=== PATIENT | male | born 1960 | race African-American/Black ===

== ENCOUNTER 2017-07-10 11:54 | Day surgery (SDC) | payer BC ==
[2017-07-09 13:29] VITALS: BMI 36.2
[2017-07-10] MEDS ORDERED: Propofol 200 MG/20 ML VIAL ONE (14:05)
--- NOTE | 2017-07-10 18:24 | OP ---
DATE OF PROCEDURE: 07/10/2017 PROCEDURES PERFORMED: Esophagogastroduodenoscopy with biopsy and colonoscopy. PREOPERATIVE DIAGNOSES: Dyspepsia and colon cancer screening. DESCRIPTION OF PROCEDURE: Informed consent was obtained from the patient. He was sedated with tota l intravenous anesthesia. The bite block was placed and the endoscope was advanced easily to the se cond portion of the duodenum and retroflexion was performed in the stomach. The esophagus was mikhail l. The GE junction was normal. The stomach was normal including retroflexed views. The pylorus an d first and second portions of the duodenum were normal. Random biopsies were taken from the duoden um to rule out celiac disease. The patient was turned around. Rectal exam was performed and was no rmal. The preparation quality was excellent. The colonoscope was advanced to the cecum where the i leocecal valve and appendiceal orifice were clearly identified. The colonic mucosa was normal throu ghout. Retroflexed views in the rectum were normal. IMPRESSION: 1. Normal esophagogastroduodenoscopy. Duodenal biopsies taken. 2. Normal colonoscopy. RECOMMENDATIONS: 1. Await histopathology. 2. Repeat colonoscopy in 10 years. 3. Follow up in GI clinic.
--- NOTE | 2017-07-14 13:26 | EKG ---
Test Reason : PREOP Blood Pressure : / mmHG Vent. Rate : 044 BPM Atrial Rate : 044 BPM P-R Int : 170 ms QRS Dur : 114 ms QT Int : 454 ms P-R-T Axes : 053 016 -04 degrees QTc Int : 388 ms Marked sinus bradycardia with sinus arrhythmia Non-specific intra-ventricular conduction block Possible Inferior infarct , age undetermined Abnormal ECG Confirmed by EZIO NOVA ([id number]) on 07/14/2017 1:26:00 PM Referred By: ANTHONY Confirmed By:EZIO NOVA
== END 2017-07-10 17:00 | disposition home or self-care (01) ==
LOC: SDC 11:54
PROVIDERS: ATTEND Internal Medicine Gastroenterology
PROC: 0DB98ZX Excision of Duodenum, Via Natural or Artificial Opening Endoscopic, Diagnostic (ICD-10-PCS; principal; 2017-07-10)
PROC: 0DJD8ZZ Inspection of Lower Intestinal Tract, Via Natural or Artificial Opening Endoscopic (ICD-10-PCS; principal; 2017-07-10)
DX: Z12.11 Encounter for screening for malignant neoplasm of colon (principal); R10.13 Epigastric pain; I10 Essential (primary) hypertension; I48.0 Paroxysmal atrial fibrillation; D63.8 Anemia in other chronic diseases classified elsewhere; Z21 Asymptomatic human immunodeficiency virus [HIV] infection status; Z79.01 Long term (current) use of anticoagulants; Z79.899 Other long term (current) drug therapy; Z88.0 Allergy status to penicillin; Z98.890 Other specified postprocedural states; Z87.01 Personal history of pneumonia (recurrent); Z86.711 Personal history of pulmonary embolism; Z87.891 Personal history of nicotine dependence
CPT/HCPCS: 88305; 93005; 93010; J2704

== ENCOUNTER 2017-08-25 16:10 | Outpatient (CLI) | payer BC | END 2017-08-25 16:11 | disposition home or self-care (01) | LOC: BICULT 16:10 | PROVIDERS: ATTEND Urology | DX: I26.99 Other pulmonary embolism without acute cor pulmonale (principal) | CPT/HCPCS: 93970 ==

== ENCOUNTER 2017-11-24 10:25 | Outpatient (CLI) | payer BC ==
--- NOTE | 2017-11-24 15:00 | CT ---
ABDOMEN CT WITH AND WITHOUT CONTRAST PELVIC CT WITH AND WITHOUT CONTRAST: HISTORY: Prostate cancer. COMPARISON: 02/26/17. TECHNIQUE: An abdomen and pelvic CT is performed without IV and with IV contrast. Coronal reformatted images ar e submitted for interpretation. FINDINGS: ABDOMEN CT: Lung bases are clear. Normal heart size. No pericardial effusion. The descending thoracic aorta an d abdominal aorta have a normal caliber. There is atherosclerosis. No periaortic fat stranding. No gastrohepatic, retrocrural, or periportal lymphadenopathy. Intra- and extrahepatic portal vein is patent. Symmetric attenuation of the psoas muscles. There is appropriate enhancement of the liver, spleen, pancreas, and adrenal glands. Subcentimeter cyst in the mid right renal cortex is noted. There is an additional smaller cyst in th e lateral aspect of the right kidney. Punctate nonobstructing bilateral internal calculi. Bilateral ly, no evidence of hydronephrosis, nephrolithiasis, or perinephric fat stranding. Symmetric enhancem ent of the kidneys. There is symmetric excretion into the intra- and extrarenal collecting systems. No definite filling defect. No mesenteric mass, lymphadenopathy, free air, or free fluid. Limited evaluation of the alimentary canal due to the lack of oral contrast administration. No bowel obstruction. Ileocecal junction is normal. Normal-caliber appendix. Fecal material in a nondisten ded , nondilated colon. PELVIC CT: There is a suprapubic catheter. There are segments of small bowel extending through a ventral abdomi nal wall hernia. No bowel obstruction or incarceration. There is mucosal thickening. There is mass effect in the floor of the urinary bladder due to prostatic hypertrophy. Contrast is noted in the d ependent portion of the urinary bladder. There is also stable soft tissue density on the posterior m idline of the urinary bladder which is likely due to hypertrophy of the median lobe of the prostate g land. No pelvic mass, free air, or free fluid. Nonspecific, stable right external iliac lymph node m easuring 1.2 x 0.9 cm. Stable nonspecific left external iliac lymph nodes as well. No lytic or blastic lesions within the osseous structures. IMPRESSION: 1. Redemonstration of a suprapubic catheter. 2. Nonobstructing bilateral intrarenal calculi. 3. Left renal cyst. 4. Persistent mucosal thickening in the urinary bladder mucosa. 5. Stable nonspecific pelvic lymph nodes. POS: [facility]
[2017-11-24] MEDS ORDERED: Iopamidol 370 76% 100 ML VIAL ONE (16:05)
--- NOTE | 2017-11-24 17:48 | NM ---
WHOLE BODY BONE SCAN: History: Prostate cancer. Comparison: None. Technique: Patient was administered 32 mCi Technetium 99M MVP. After appropriate delay, whole body im ages were performed. FINDINGS: Despite patient urinating right before imaging, there is still significant urine/radiotracer material in the urinary bladder. Limited evaluation of the sacrum. Photopenic defect in the urinary bladder d ue to bulb from suprapubic catheter. There is expected uptake in the soft tissues. Uptake in the shoulders, knees, feet, and ankle due to degenerative change. No scintigraphic evidence of osseous metastases. Again, evaluation of the sacrum is limited. IMPRESSION: No obvious osseous metastasis. POS: [facility]
== END 2017-11-24 10:26 | disposition home or self-care (01) ==
LOC: NM 10:25
PROVIDERS: ATTEND Urology
DX: C61 Malignant neoplasm of prostate (principal); N20.0 Calculus of kidney; N28.1 Cyst of kidney, acquired; N32.89 Other specified disorders of bladder; R59.0 Localized enlarged lymph nodes
CPT/HCPCS: 74178; 78306; A9503

== ENCOUNTER 2017-12-12 09:05 | Outpatient (CLI) | payer BC ==
[2017-12-12] MEDS ORDERED: Gadobenate Dimeglumine 529 MG/1 ML (20ML VIAL) ONE (11:39)
--- NOTE | 2017-12-12 12:25 | MRI ---
MRI PELVIS WITH AND WITHOUT IV CONTRAST: HISTORY: History of prostate cancer status post biopsy in February 2017 without history of chemo or radiation ther apy. COMPARISON: CT abdomen and pelvis from 11/24/2017 and bone scan from 11/24/2017. TECHNIQUE: Multiplanar, multisequence MR images were obtained of the pelvis utilizing prostate cancer specific p rotocol, and 20 mL of MultiHance was utilized for the examination. FINDINGS: The prostate measures 3.9 x 5.5 x 7.6 cm in its greater AP, mediolateral, and craniocaudad dimensions , respectively. The total prostatic volume is 84.7 mL. There is some residual increased T1 signal s een within the peripheral zone of the prostate gland, which can be reflective of some residual hemorr andrei after biopsy. This can persist for a long period of time following biopsy. No suspicious restricted diffusion is seen within the peripheral zone. No suspicious T2 signal abnor mality is seen within the central gland. The visualized anterior fibromuscular stroma appears within normal limits. The neurovasculature and seminal vesicles appear within normal limits. There is wall thickening involving the bladder with a suprapubic catheter. No pathologically enlarge d lymph nodes are evident. No suspicious enhancement is demonstrated on the dynamic contrast enhance d images. IMPRESSION: 1. PI-RADS Category 2-Low (clinical significant cancer is unlikely to be present). Clinically signi ficant cancer as being Arnaud 7 or above. 2. Prostate enlargement. 3. Suprapubic catheter. 4. Wall thickening involving the bladder, likely reflective of a component of chronic bladder outlet obstruction. POS: [facility]
== END 2017-12-12 09:06 | disposition home or self-care (01) ==
LOC: TBSIIMAG 09:05
PROVIDERS: ATTEND Urology
DX: C61 Malignant neoplasm of prostate (principal); N32.89 Other specified disorders of bladder; Z96.0 Presence of urogenital implants
CPT/HCPCS: 72197

== ENCOUNTER 2018-03-12 13:36 | Outpatient (CLI) | payer BC | END 2018-03-12 13:37 | disposition home or self-care (01) | LOC: BICCT 13:36 | PROVIDERS: ATTEND Internal Medicine Sleep Medicine | DX: R91.1 Solitary pulmonary nodule (principal) | CPT/HCPCS: 71250 ==

== ENCOUNTER 2018-07-22 09:12 | Outpatient (CLI) | payer BC ==
--- NOTE | 2018-07-22 12:46 | RAD ---
CYSTOGRAM: HISTORY: Two prior injuries to the bladder, which were repaired. The patient has a suprapubic catheter and a urethral catheter. Evaluate for leakage from the urinary bladder after surgical repair. EXPOSURE: Fluoroscopy time 1.2 minutes with 49.643 Gy per cm2. FINDINGS: The patient had a suprapubic catheter and a urethral catheter. The suprapubic catheter was previousl y clamped by the patient's prior physician. Contrast was instilled through the patient's urethral ca theter. The bladder was adequately distended with approximately 325 mL of contrast. No leakage of contrast f rom the urinary bladder was seen. No reflux was seen at the ureters. The bladder was decompressed through the urethral catheter. No residual contrast remained, and no si gnificant retention of the contrast was seen at the completion of the examination. IMPRESSION: No evidence of leakage from the urinary bladder. POS: [facility]
== END 2018-07-22 09:13 | disposition home or self-care (01) ==
LOC: RAD 09:12
PROVIDERS: ATTEND Urology
DX: C61 Malignant neoplasm of prostate (principal)
CPT/HCPCS: 36415; 51600; 74430; 80048; 85025

== ENCOUNTER 2018-08-22 10:28 | Emergency (ER) | payer BC ==
[2018-08-22] MEDS ORDERED: Morphine 4 MG/ML VIAL ONE (11:27)
[2018-08-22 11:43] LABS: #Eosinphils 0.1 thou/uL (0.0-0.7); #Lymphocytes 2.4 thou/uL (1.20-3.40); #Monocytes 1.2 thou/uL (0.11-0.59); #Neutrophils 7.2 thou/uL (1.40-6.50); %Basophils 0.4 % (0.0-1.0); %Eosinophils 0.7 % (0.0-10.0); %Lymphocytes 21.8 % (21.0-51.0); %Monocytes 11.1 % (0.0-10.0); %Neutrophils 65.9 % (42.0-75.0); Hemoglobin 12.2 g/dL (14.0-18.0); Mean Corpuscular HGB CONC 32.4 g/dL (32.0-36.0); Mean Corpuscular Hemoglobin 30.9 pg (27.0-31.0); Mean Corpuscular Volume 95.3 fL (78.0-98.0); Mean Platelet Volume 6.5 fL (7.4-10.4); Platelet Count 254 thou/uL (130-400); RBC Distribution Width 13.6 % (11.5-14.5); Red Blood Cell (RBC) Count 3.96 mill/uL (4.70-6.10)
[2018-08-22 11:52] LABS: INR-International Normal Ratio 1.1; Prothrombin Time 14.7 SEC (12.0-14.7)
--- NOTE | 2018-08-22 12:03 | RAD ---
CHEST 1 VIEW: Date: 08/22/18 INDICATION: Lower abdominal pain. COMPARISON: Prior exam dated 01/23/17. FINDINGS: Heart size is upper limits of normal. Lungs are clear. No pleural effusion or pneumothorax is evident . No acute osseous abnormality is evident. IMPRESSION: No acute abnormality. POS: [facility]
[2018-08-22 12:06] LABS: ALT (SGPT) 14 U/L (8-55); AST (SGOT) 19 U/L (5-34); Albumin 4.1 g/dL (3.5-5.0); Alkaline Phosphatase 89 U/L (40-150); Anion Gap 15 mmol/L (10-20); BUN (Urea Nitrogen) 12 mg/dL (8.4-25.7); Bilirubin, Total 0.8 mg/dL (0.2-1.2); Calc. Creatinine Clearance 0 mL/min (70-130); Carbon Dioxide 26 mmol/L (22-29); Chloride 98 mmol/L (98-107); Estimated GFR-MDRD 90; Globulin 4.2 g/dL (2.4-3.5); Glucose 121 mg/dL (70-105); Potassium 3.2 mmol/L (3.5-5.1); Protein, Total 8.3 g/dL (6.0-8.3); Sodium 136 mmol/L (136-145)
[2018-08-22] MEDS ORDERED: Potassium Chloride 20 MEQ TAB ONE (12:29)
[2018-08-22] MEDS ORDERED: HYDROmorphone 0.5 MG/0.5 ML SYRINGE ONE ×2 (12:47→20:47)
[2018-08-22 13:25] LABS: Bilirubin Negative (Negative); Blood, Urine Small (Negative); Clarity CLEAR (Clear); Glucose, Urine (Dipstick) Negative (Negative); Leukocyte Moderate (Negative); Nitrite Negative (Negative); Protein, Urine (Dipstick) Trace mg/dL (Neg-Trace); Specific Gravity, Urine 1.021 (1.002-1.036); pH, Urine 6.5 (5.0-9.0)
[2018-08-22 13:27] LABS: Bacteria/HPF None Seen HPF (None Seen); Hyaline Casts/LPF 0-3 HYALINE CAST LPF (0-3 Hyaline); Squamous Epithelial 0-3 HPF (0-3); WBC/HPF 21-50 HPF (0-3)
[2018-08-22 13:30] LABS: Renal Epithelial None Seen HPF (0-3); Transitional Epithelial NONE SEEN HPF (0-3)
--- NOTE | 2018-08-22 13:50 | CT ---
CT ABDOMEN AND PELVIS WITH IV CONTRAST: Date: 08/22/18 INDICATION: History of abdominal pain, prostate cancer. COMPARISON: Prior CT abdomen and pelvis dated 11/24/17. FINDINGS: There is mild bibasilar atelectasis. There is a small hiatal hernia. There is mild fatty infiltration of the liver. The pancreas and adrenal glands appear within normal limits. There are small cysts inv olving the left mid kidney. There is a 2-3 mm nonobstructing calculus in the right mid kidney which i s stable. Renal vascular calcification seen involving the left renal sinus. No free fluid or enlarged lymph nodes are evident. There is a mild amount of retained stool within th e colon. There is a normal appendix in the right lower quadrant. There is a suprapubic catheter in pl ava. There is a fat-containing umbilical hernia containing unobstructed loops of small bowel, slightl y more prominent than on a comparison dated 11/24/17. No definite acute osseous abnormality is evident. There is scattered degenerative and osteoarthritic change. IMPRESSION: 1. No definite acute abnormality. 2. Umbilical hernia contains slightly more loops of small bowel, but unobstructed, without overt fred dence of strangulation. 3. Suprapubic catheter appears in good position. 4. Stable right nephrolithiasis and left renal cyst. 5. Fatty liver. 6. Small hiatal hernia. Findings discussed with Dr. Gallardo at 1239 hours on 08/22/18. CODE CR. POS: [facility]
[2018-08-22] MEDS ORDERED: cefTRIAXone\\ROCEPHIN 1 GM VIAL ONE (13:52)
[2018-08-22] MEDS ORDERED: Iopamidol 370 76% 100 ML VIAL ONE (16:24)
--- NOTE | 2018-08-22 23:46 | CON ---
DATE OF CONSULTATION: 08/22/2018 ER CONSULTATION PRIMARY CARE PHYSICIAN: Aura Kovacs MD HISTORY OF PRESENT ILLNESS: Mr. Mcfarland is a 58-year-old , with history of elevated PSA, BPH, history of gross hematuria, and clot retention in the past. elevated PSA workup had to be deferred as he was on blood thinners due to small pulmonary embolus. Subsequently, he underwent prostate biopsy, which did demonstrate Arnaud Score 3+3, 3+4. He does have a massively enlarged prostate with a large intravesical median lobe and has been managed with a suprapubic tube. Due to his body habitus, morbidly obese, with a large ventral hernia, very large prostate volume with challenging anatomical issue, he was referred to Dr. Kevon Aguila in [facility]. Surgery had to be deferred a few times as there were issues with the patient following directions and Medical /Infectious Disease clearance as he has had chronic bacteruria. He eventually made it to [facility] and attempted robotic-assisted laparoscopic radical prostatectomy was performed by Dr. Aguila on July 09, 2018. Unfortunately, robotic radical prostatectomy had to be aborted as he was found to have occult significant pelvic lipomatosis hindering safe dissection of his prostate. He did undergo pelvic lymph node dissection, which is negative for malignancy. He is scheduled with Dr. Ann this Friday for prostatic enucleation as suprapubic prostatectomy was unable to be performed during robotic laparoscopy. He presents to the emergency room today, as he had vague abdominal discomfort. His workup is negative in the emergency room with white count of 11, creatinine normal, UA is not significantly worrisome for UTI component, although colonization is expected as he has chronic SP tube. His CT demonstrates no acute pathology or concern. His urine is draining clear yellow. Due to social issues in which he is unable to obtain a ride to [place], and limited mobility, I did discuss his case with Dr. Aguila, who has accepted the patient to be transferred from ER to ER as he is quite complicated with limited mobility and with upcoming surgery and his recent surgical intervention at [facility]. PAST MEDICAL HISTORY: Includes HIV; right pulmonary embolus, resolved, previously on Coumadin; history of AFib; BPH with urinary retention; chronic venous insufficiency; chronic kidney disease, and prostate cancer. PAST SURGICAL HISTORY: Cystoscopy, suprapubic tube placement; transrectal ultrasound biopsy demonstrating Arnaud Score 3+3, 3+4; recent attempted robotic radical prostatectomy abandoned, successful bilateral pelvic lymph node dissection negative for malignancy on July 09, [address] Aguila in [place]. FAMILY HISTORY: Positive for heart disease and diabetes. ALLERGIES: HE IS ALLERGIC TO PENICILLIN, CAUSES SWELLING. HOME MEDICATIONS: Include; 1. Hydrochlorothiazide. 2. Potassium chloride. 3. Torsemide. 4. Flomax. 5. Metoprolol. PHYSICAL EXAMINATION: VITAL SIGNS: Stable. HEENT grossly unremarkable H: Regular rate and rhythm Lung: Distant otherwise clear Abdomen: Morbidly obese, as previous ventral hernia no rigidity no rebound SP tube is draining to gravity yellow clear. There is no gross rigidity or rebound : Uncircumcised. Him discomfort on palpation of the testes, Testes are descended. There is no gross lytic changes of the scrotal tissue, no erythema no induration or fluctuance EXTREMITIES: Demonstrate chronic venous stasis changes. RECTAL: Digital rectal exam is not preformed today as he has some discomfort and has decreased mobility. LABORATORY DATA: Workup in the emergency room, CT demonstrated no acute pathology, suprapubic tube is in good position, stable right punctate 2 to 3 mm stone, a large ventral hernia with no evidence of bowel obstruction, fatty liver with small hiatal hernia. White count of 11, hemoglobin 12 UA demonstrates small blood, moderate leukocytes, 7 to 10 rbc's, 20 to 50 wbc's, and no bacteria. IMPRESSION AND PLAN: Mr. Mcfarland is a morbidly obese male with history of; 1. Elevated PSA, Arnaud Score of 3+3, 3+4 prostate cancer. 2. History of massively enlarged prostate with large intravesical median lobe. 3. Pelvic lipomatosis in which radical prostatectomy was unable to be performed. 4. History of pulmonary embolus, resolved. 5. History of pulmonary nodule, followed by Pulmonology. 6. Presents today for vague abdominal discomfort. His workup in the emergency room is negative. As I have concerns regarding the patient's compliance to proceed with his enucleation of the prostate, which is required for him to undergo radiation therapy for his prostate cancer, I did reach out to Dr. Aguila who has graciously accepted the patient to be transferred to [facility] for continuity of care. ER physician informed. They are coordinating transport. Job ID: [id number] [facility]
== END 2018-08-22 20:58 | disposition short-term general hospital (02) ==
LOC: ERS 10:28
DX: R10.30 Lower abdominal pain, unspecified (principal); B20 Human immunodeficiency virus [HIV] disease; I10 Essential (primary) hypertension; Z87.891 Personal history of nicotine dependence; Z86.711 Personal history of pulmonary embolism; Z85.46 Personal history of malignant neoplasm of prostate; Z79.899 Other long term (current) drug therapy
CPT/HCPCS: 36415; 71045; 74177; 80053; 81003; 81015; 83880; 85025; 85610; 87086; 96361; 96365; 96375; 96376; J0696; J1170; J2270

== ENCOUNTER 2018-11-23 08:18 | Outpatient (CLI) | payer BC ==
--- NOTE | 2018-11-23 10:22 | CT ---
PRE AND POSTCONTRAST ENHANCED CT IMAGES OF ABDOMEN AND PELVIS: HISTORY: A 58-year-old with a history of prostate cancer. COMPARISON: Comparison is made to previous exam from 11/24/2017. The suprapubic catheter has been removed. The lung bases are unremarkable. No evidence of free intraperitoneal air is seen. The liver and spleen, gallbladder, pancreas, and adrenal glands are unremarkable. Areas of hypodensi ty are seen in the left kidney compatible with cortical cysts. Bilateral nonobstructing mid ole duane l calculi seen. There is atrophy of the anterior abdominal wall with protrusion of intraabdominal contents compressin g anteriorly. There is an infraumbilical right anterior abdominal wall hernia with loops of bowel pr otruding into it. No evidence of proximal obstruction seen. No evidence of periaortic lymphadenopathy is seen. The urinary bladder is thickened compatible with muscle hypertrophy. There appears to have been inte rval resection of the prostate gland. A normal appendix is visualized. Osseous structures demonstrate no definite evidence of lesions. Lumbar spine degenerative changes se en. No definite evidence of periaortic or lymphadenopathy seen. Minimally enlarged inguinal lymph nodes seen. The largest on the left measures approximately 12 x 14 mm. IMPRESSION: Postsurgical changes. POS: [facility]
== END 2018-11-23 08:19 | disposition home or self-care (01) ==
LOC: CT 08:18
PROVIDERS: ATTEND Urology
DX: C61 Malignant neoplasm of prostate (principal); N40.1 Benign prostatic hyperplasia with lower urinary tract symptoms; R31.29 Other microscopic hematuria; Z98.890 Other specified postprocedural states
CPT/HCPCS: 74178

== ENCOUNTER 2018-12-14 10:20 | Outpatient (CLI) | payer BC ==
--- NOTE | 2018-12-14 13:37 | ULT ---
ABDOMINAL ULTRASOUND: HISTORY: Abdominal pain and abdominal distention. COMPARISON: Correlation is made to CT of 11/23/2018. FINDINGS: Exam is limited due to body habitus and overlying bowel gas. The gallbladder is not identified by ultrasound. The gallbladder is seen on recent CT abdomen and is mildly contracted on that study. The common bile duct is not visualized. Pancreas is obscured. The liver is mildly enlarged measuring up to 20 cm. There is increased liver echogenicity. No focal liver mass or lesion. Spleen upper normal size measuring 12 cm. The right kidney measures 11.5 cm. The left kidney is not well evaluated. Both kidneys are seen on recent CT of 11/23/2018. The aorta is poorly evaluated. Aorta appears ectatic on ultrasound measuring 2.5 to 3 cm. However, correlation to recent CT showed no evidence of aortic dilatation. IMPRESSION: Severely limited exam as described above. Mild hepatomegaly is demonstrated. POS: [facility]
== END 2018-12-14 10:21 | disposition home or self-care (01) ==
LOC: ULT 10:20
PROVIDERS: ATTEND Internal Medicine Infectious Disease
DX: R60.9 Edema, unspecified (principal); R16.0 Hepatomegaly, not elsewhere classified
CPT/HCPCS: 76700

== ENCOUNTER 2019-03-10 07:57 | Inpatient (IN) | payer BC ==
[2019-03-10 08:46] LABS: #Lymphocytes 1.1 thou/uL (1.20-3.40); #Monocytes 0.6 thou/uL (0.11-0.59); #Neutrophils 4.5 thou/uL (1.40-6.50); %Basophils 0.3 % (0.0-1.0); %Eosinophils 0.4 % (0.0-10.0); %Monocytes 9.4 % (0.0-10.0); %Neutrophils 71.8 % (42.0-75.0); Hemoglobin 14.4 g/dL (14.0-18.0); Mean Corpuscular HGB CONC 33.8 g/dL (32.0-36.0); Mean Corpuscular Hemoglobin 30.9 pg (27.0-31.0); Mean Corpuscular Volume 91.5 fL (78.0-98.0); Mean Platelet Volume 7.7 fL (7.4-10.4); Platelet Count 219 thou/uL (130-400); RBC Distribution Width 14.1 % (11.5-14.5); Red Blood Cell (RBC) Count 4.66 mill/uL (4.70-6.10); White Blood Cell (WBC) Count 6.3 thou/uL (4.8-10.8)
[2019-03-10 10:12] LABS: CKMB 1.3 ng/mL (0-6.6)
[2019-03-10 10:17] LABS: Potassium 2.4 mmol/L (3.5-5.1)
[2019-03-10] MEDS ORDERED: Potassium Chloride 20 MEQ TAB ONE (10:26)
[2019-03-10 10:32] LABS: BUN (Urea Nitrogen) 43 mg/dL (8.4-25.7); Calc. Creatinine Clearance 0 mL/min (70-130); Calcium 10.3 mg/dL (7.8-10.44); Chloride 75 mmol/L (98-107); Estimated GFR-MDRD 34; Glucose 526 mg/dL (70-105); Sodium 129 mmol/L (136-145)
[2019-03-10 10:41] LABS: Carbon Dioxide 36 mmol/L (22-29)
[2019-03-10 10:44] LABS: Anion Gap 10 mmol/L (10-20)
[2019-03-10] MEDS ORDERED: Insulin Regular 300 UNITS/3 ML VIAL ONE (11:11)
[2019-03-10 13:30] LABS: Troponin I 0.042 ng/mL (< 0.028)
--- NOTE | 2019-03-10 14:38 | HP ---
PRIMARY CARE PHYSICIAN: Auar Kovacs MD CHIEF COMPLAINT: Feeling drowsy and increased abdominal girth and sent over due to abnormal lab results. HISTORY OF PRESENT ILLNESS: Mr. Mcfarland is a very pleasant 58-year-old gentleman, who has a history of hypertension and also history of previous pulmonary embolism. He was in his usual state of health until the last few months. He has noted increasing abdominal girth and he also notes increasing swelling in his legs. He also says he has been "drowsy" for the last eight months. He also has been complaining of increasing shortness of breath. He has been in the process of being evaluated by his primary care physician as well as Dr. Dyson. He says that she has performed a couple of tests on him and the plan was to do a cardiac catheterization today. He was in her office and was actually he was here to do a scheduled cardiac catheterization when some routine lab work was done and it was determined that his blood glucose was elevated above 500 and his creatinine was also 2.4. He is being electively admitted for further treatment. He says that he has been placed on Lasix as well as metolazone off and on for the increasing swelling. He also sees Dr. Cox, who has been helping to manage his diuretic use as well as monitor his kidney function. He says that he was on metolazone daily, but then they did decrease it back to twice a week and he also has recently completed radiation treatment for prostate cancer and he was seeing Dr. Barker for this. REVIEW OF SYSTEMS: With regard to the review of systems; CONSTITUTIONAL: There has been no fevers or chills. No night sweats. No weight loss. HEENT: He denies any headaches. No dizziness. No visual changes. No sore throat, rhinorrhea, or neck pain. No adenopathy. PULMONARY: No hemoptysis. No cough. No wheezing. CARDIOVASCULAR: He denies any chest pain, but says he has had significant dyspnea and dyspnea on exertion. No PND. No orthopnea. GASTROINTESTINAL: He notes increasing abdominal girth, but no abdominal pain. No nausea. No vomiting. He says his last bowel movement was two days ago and it was normal. GENITOURINARY: He does admit to a urinary frequency, but no dysuria. No hematuria. MUSCULOSKELETAL: No muscle pains, weakness, or joint pains. NEUROLOGIC: No focal weakness or numbness. No seizures. SKIN AND INTEGUMENT: He does admit to dry and scaly skin. No rash. PAST MEDICAL HISTORY: Significant for prostate cancer. He is status post radical prostatectomy and radiation therapy. Hypertension, pulmonary embolism, and chronic leg swelling. PAST SURGICAL HISTORY: He has had again radical prostatectomy. ALLERGIES: TO PENICILLIN, BUT HE SAYS HE IS NO LONGER ALLERGIC, THIS WAS YEARS AGO. HE DID TAKE FORM OF PENICILLIN PRIOR TO HIS PREVIOUS SURGERY WITHOUT ANY DIFFICULTY. FAMILY HISTORY: Significant for diabetes in his brother and sister. SOCIAL HISTORY: He is single. He is a former smoker. Former drinker. He is a full code. His sister, Stefanie Malave is the surrogate decision maker. MEDICATIONS: His current medications include; 1. K-Dur 20 mEq p.o. daily. 2. Flomax 0.4 mg once daily. 3. Hydrochlorothiazide 25 mg daily. 4. Torsemide 40 mg daily. 5. Metoprolol tartrate 25 mg twice a day. 6. Vitamin D2 of 50,000 units once a week. 7. Metolazone 5 mg as needed. 8. Bactrim DS one tablet 3 times a week. 9. Genvoya once a day. PHYSICAL EXAMINATION: VITAL SIGNS: Blood pressure is 134/96, heart rate 80, respiratory rate of 20, and temperature is 97.8. GENERAL: He is well developed and well nourished, in no acute distress. HEENT: Pupils are equal, round, and reactive. Extraocular muscles are intact. Sclerae anicteric. Throat, there is no erythema. No exudates. NECK: There is no adenopathy. No bruits. LUNGS: Clear to auscultation. There has been no wheezing. No rales. No rhonchi. CARDIOVASCULAR: He has a normal S1 and S2. There is no S3 or S4. No murmurs, clicks, or rubs. ABDOMEN: Obese. It is distended. It is nontender. Positive for bowel sounds. There is no rebound or guarding. EXTREMITIES: He has extremely dry flaky skin. There is no calf tenderness. No joint effusions. NEUROLOGIC: The exam is nonfocal. SKIN AND INTEGUMENT: Again very dry scaly skin on both lower extremities as well as some chronic venous stasis changes around the ankles on both feet. LABORATORY DATA: Sodium is 129, potassium 2.4, chloride is 75, CO2 is 36, BUN of 43, creatinine 2.37, and glucose is 526. Troponin is 0.041. White blood cell count 6.3, hemoglobin 14.4, hematocrit is 42.6, and platelet count is 219. ASSESSMENT AND PLAN: This is a 58-year-old gentleman, who was sent over from an elective cardiac catheterization due to abnormal labs prior to the procedure being done. It was found that he has new onset diabetes mellitus as well as an acute kidney injury with hypokalemia. 1. With regard to new onset diabetes mellitus, initially, he will be started on a low-dose long-acting insulin as well as a sliding scale. Hopefully, once his glucose is controlled, this can be transitioned to an oral agent. 2. Acute kidney injury. His creatinine is above twice his baseline after review of his records. I suspect this is likely due to volume depletion, likely from the diabetes mellitus and hopefully should respond to fluid resuscitation. He does see Dr. Cox on a regular basis. Therefore, we will go ahead and consult him as well. 3. History of pulmonary embolism. Currently, he does not appear to be on any type of anticoagulation. He will therefore be placed on general deep venous thrombosis prophylaxis. 4. Hypertension. We will go ahead and restart his usual antihypertensive medications as well as have p.r.n. medications available. 5. It appears as he is on medications for human immunodeficiency virus. I will need to go back and ask him with regard to the Genvoya and what looks like Bactrim DS, which appears to be a prophylactic dose and go ahead and continue these as indicated. Job ID: [id number]
[2019-03-10] MEDS ORDERED: Ondansetron PF 4 MG/2 ML Vial IVP PRN ×2 (14:51→15:10)
[2019-03-10] MEDS ORDERED: Acetaminophen 325 MG TAB PO PRN (14:51)
[2019-03-10] MEDS ORDERED: Ondansetron ODT 4 MG TAB SL PRN (14:51)
[2019-03-10] MEDS ORDERED: Sodium Chloride 0.9% 1,000 ML IV SCH (14:51)
[2019-03-10] MEDS ORDERED: Dextrose 50% Abboject 50 ML SYRINGE SLOW IVP PRN (15:10)
[2019-03-10] MEDS ORDERED: Dextrose 5% in Water 1,000 ML IV PRN (15:10)
[2019-03-10] MEDS ORDERED: hydrALAZINE 20 MG/ML VIAL SLOW IVP PRN (15:10)
[2019-03-10] MEDS ORDERED: cloNIDine 0.1 MG TAB PO PRN (15:10)
[2019-03-10] MEDS ORDERED: Ondansetron ODT 4 MG TAB PO PRN (15:10)
[2019-03-10] MEDS: Heparin 5,000 UNITS/ML VIAL SC SCH ×2 (15:40→20:36)
[2019-03-10] MEDS: NS 0.9% w/ 20 MEQ KCL 1,000 ML/1,000 ML BAG IV SCH ×2 (16:35→16:36)
[2019-03-10 17:19] LABS: Troponin I 0.038 ng/mL (< 0.028)
[2019-03-10] MEDS: HumaLOG 300 UNITS/3 ML VIAL SC PRN ×2 (17:35→20:34)
[2019-03-10] MEDS: Famotidine 20 MG TAB PO SCH (20:36)
[2019-03-11] MEDS: Heparin 5,000 UNITS/ML VIAL SC SCH ×3 (09:50→20:46)
[2019-03-11] MEDS: NS 0.9% w/ 20 MEQ KCL 1,000 ML/1,000 ML BAG IV SCH ×3 (09:54→13:48)
[2019-03-11] MEDS ORDERED: Diltiazem 125 MG in Sodium Chloride 0.9% 100 ML IVPB SCH ×2 (11:00→17:18)
[2019-03-11] MEDS ORDERED: Insulin Glargine 15 UNITS in Pre-Filled Syringe 1 EACH SC SCH ×2 (11:30→21:00)
--- NOTE | 2019-03-11 11:51 | CON ---
DATE OF CONSULTATION: REASON FOR CONSULTATION: Elevated creatinine. HISTORY OF PRESENT ILLNESS: This is a 58-year-old gentleman with a past medical history of CKD and a baseline creatinine of 1.3 in January 2019, presented to the hospital with a month history of increasing swelling, increasing abdominal girth, and a 62-pound weight gain. The patient is being evaluated for cardiac reason. His creatinine has increased from 1.0 in December to 1.3 in January and 2.3 yesterday. Today's labs are pending. The patient has dyspnea on minimal exertion. Denies any chest pain. The patient is taking Bactrim as well as taking Genvoya. The patient has had no urine protein studies. PAST MEDICAL HISTORY: Significant for; 1. Prostate cancer. 2. History of hypertension. 3. History of acute kidney injury. 4. History of radical prostatectomy, on radiation therapy. 5. History of pulmonary embolism. 6. Hypertension. 7. Chronic leg swelling. 8. History of HIV, and being treated for congestive heart failure. SOCIOECONOMIC HISTORY: No alcohol or drug use. FAMILY HISTORY: Negative for ESRD. HOME MEDICATIONS: List reviewed. HOSPITAL MEDICATIONS: List reviewed. ALLERGIES: REVIEWED. REVIEW OF SYSTEMS: A 15-point review of systems was performed and was negative except for positives noted above. GENERAL: HEAD: NECK: No swelling or lumps. NOSE: No epistaxis or discharge. EYES: No diplopia or pain. RESPIRATORY: CARDIOVASCULAR: GASTROINTESTINAL: /ORDERLIES TEACHER: MUSCULOSKELETAL: No joint pain. NEUROPSYCHIATIC SYSTEMS: No suicidal ideation. No ideation. SKIN: Denies any rash or ulcer. CONSTITUTIONAL: No fever or chills. PHYSICAL EXAMINATION: GENERAL: The patient is awake and alert. VITAL SIGNS: Afebrile. Pulse 76, breathing 16, and blood pressure 120/68. GENERAL APPEARANCE AND MENTAL STATUS: Fair. HEAD/NECK: Normocephalic. Atraumatic. EYES: EOMI. No deformity. EARS: Clear. No ulcers. NOSE: Intact. No lesions. MOUTH: Clear. No discharge. THROAT: Clear. No exudate. LUNGS: Clear. No crackles. CARDIAC: S1, S2. No rub. ABDOMEN: Shows massive ascites. GENITALIA/RECTUM: Verdin absent. BACK/EXTREMITIES: Lower extremities have 4+ edema. NEUROLOGICAL: Alert and motor intact. SKIN: LYMPHATICS: LABORATORY DATA: Labs reviewed. ASSESSMENT AND PLAN: 1. Acute kidney injury with chronic kidney disease stage 4, most likely because of acute tubular necrosis, because of HIV medicine and/or diuretic use. I will order a stat echocardiogram. Hold Genvoya and Bactrim, and I will consult Infectious Disease. 2. Anemia, stable. 3. Medications based on GFR appropriate. 4. Proteinuria. 5. Diabetes mellitus. Overall prognosis is poor. I will also order renal imaging. Above findings will be discussed with the primary physician. Job ID: [id number]
[2019-03-11 11:52] LABS: #Eosinphils 0.1 thou/uL (0.0-0.7); #Lymphocytes 1.1 thou/uL (1.20-3.40); #Monocytes 0.6 thou/uL (0.11-0.59); #Neutrophils 3.2 thou/uL (1.40-6.50); %Basophils 0.4 % (0.0-1.0); %Lymphocytes 22.8 % (21.0-51.0); %Monocytes 11.8 % (0.0-10.0); Hemoglobin 12.6 g/dL (14.0-18.0); Mean Corpuscular HGB CONC 34.3 g/dL (32.0-36.0); Mean Corpuscular Hemoglobin 32.3 pg (27.0-31.0); Mean Corpuscular Volume 94.3 fL (78.0-98.0); Mean Platelet Volume 7.1 fL (7.4-10.4); Platelet Count 195 thou/uL (130-400); RBC Distribution Width 13.7 % (11.5-14.5); Red Blood Cell (RBC) Count 3.89 mill/uL (4.70-6.10)
[2019-03-11 12:03] LABS: ALT (SGPT) 25 U/L (8-55); AST (SGOT) 27 U/L (5-34); Albumin 4.1 g/dL (3.5-5.0); Alkaline Phosphatase 90 U/L (40-150); Anion Gap 15 mmol/L (10-20); BUN (Urea Nitrogen) 23 mg/dL (8.4-25.7); Bilirubin, Direct 0.3 mg/dL (0.1-0.3); Bilirubin, Total 0.6 mg/dL (0.2-1.2); CK (CPK) 212 U/L (30-200); Calc. Creatinine Clearance 97 mL/min (70-130); Calcium 9.3 mg/dL (7.8-10.44); Carbon Dioxide 32 mmol/L (22-29); Chloride 90 mmol/L (98-107); Estimated GFR-MDRD 62; Glucose 378 mg/dL (70-105); Protein, Total 7.5 g/dL (6.0-8.3); Sodium 134 mmol/L (136-145)
[2019-03-11 12:07] LABS: Phosphorus 1.6 mg/dL (2.3-4.7); Potassium 2.7 mmol/L (3.5-5.1)
[2019-03-11] MEDS: HumaLOG 300 UNITS/3 ML VIAL SC PRN ×2 (12:28→17:32)
[2019-03-11] MEDS ORDERED: Potassium Chloride 20 MEQ TAB PO SCH (13:15)
--- NOTE | 2019-03-11 13:31 | ULT ---
ULTRASOUND RENAL: DATE: 03/11/2019 HISTORY: Acute kidney injury in 58-year-old male. FINDINGS: There is limited visualization of the kidneys because of body habitus and shadowing from overlying dolly wel gas. Right kidney: 10 x 5.5 x 6 cm. Left kidney: 11 x 6.5 x 5.5 cm. No hydronephrosis bilaterally. Diffuse mild mural thickening of the urinary bladder. No large cystic or solid renal mass identified. IMPRESSION: No hydronephrosis.
--- NOTE | 2019-03-11 14:00 | PDOC.PN ---
- Subjective Encounter Start Date: 03/11/19 Encounter Start Time: 13:58 Mr. Mcfarland was seen today in follow-up of new onset diabetes mellitus and acute renal failure. He feels better today . He has less mouth dryness, and does not feel as weak. - Objective Resuscitation Status - Order Detail: 03/10/19 13:27 Resuscitation Status Routine Resuscitation Status: FULL: Full Resuscitation MAR Reviewed: Yes Vital Signs & Weight: Vital Signs (12 hours) Temp Pulse Resp BP Pulse Ox 03/11/19 11:08 97.9 F 124 H 18 120/68 93 L 03/11/19 07:40 98.0 F 76 18 145/91 H 94 L Weight Weight 272 lb 8 oz I&O: 03/10/19 03/11/19 03/12/19 06:59 06:59 06:59 Intake Total 820 Output Total 780 Balance 40 Result Diagrams: 03/11/19 11:16 03/11/19 11:16 Additional Labs: Accuchecks 03/11/19 03/11/19 03/10/19 10:44 05:17 20:26 POC Glucose 337 H 216 H 269 H 03/10/19 16:45 POC Glucose 298 H Phys Exam - Physical Examination HEENT: PERRLA Respiratory: no wheezing, no rales, no rhonchi, clear to auscultation bilateral Cardiovascular: RRR, no significant murmur, no rub Gastrointestinal: soft, non-tender, no distention, positive bowel sounds Musculoskeletal: no edema, pulses present + chronic venous stasis changes Neurological: non-focal, normal sensation, moves all 4 limbs Dx/Plan (1) Diabetes mellitus type 2 in obese Code(s): E11.69 - TYPE 2 DIABETES MELLITUS WITH OTHER SPECIFIED COMPLICATION; E66.9 - OBESITY, UNSPECIFIED Status: Acute (2) Acute kidney injury Code(s): N17.9 - ACUTE KIDNEY FAILURE, UNSPECIFIED Status: Acute (3) Swelling of lower extremity Code(s): M79.89 - OTHER SPECIFIED SOFT TISSUE DISORDERS Status: Acute (4) Atrial fibrillation Code(s): I48.91 - UNSPECIFIED ATRIAL FIBRILLATION Status: Chronic Qualifiers: Atrial fibrillation type: paroxysmal Qualified Code(s): I48.0 - Paroxysmal atrial fibrillation (5) HIV (human immunodeficiency virus infection) Status: Chronic (6) HTN (hypertension) Code(s): I10 - ESSENTIAL (PRIMARY) HYPERTENSION Status: Chronic Qualifiers: Hypertension type: essential hypertension - Plan * New Onset Diabetes mellitus type 2- will continue long acting insulin, as well as SSI * Acute kidney injury- I suspect this may be due to volume depletion from the diureses from the hyperglycemia * His renal function as improved with hydration * However, Nephrology input noted, and will consult ID to help clarify his medications- in the meantime hs has been taken off Genvoya, and Bactrim * AFIB- it appears he may have had an episode in the past- will consult Cardiology, and place him on a Cardizem drip- will likely start anticoagulation as well- renal function has improved
[2019-03-11 14:04] LABS: Creatinine, Urine 90.93 mg/dL (63-166)
[2019-03-11] MEDS: Tamsulosin HCl 0.4 MG CAP PO SCH (20:46)
[2019-03-11] MEDS: Famotidine 20 MG TAB PO SCH (20:46)
[2019-03-11] MEDS: Insulin Glargine 25 UNITS in Pre-Filled Syringe 1 EACH SC SCH (20:47)
[2019-03-11] MEDS: Metoprolol Tartrate 25 MG TAB PO SCH (20:47)
--- NOTE | 2019-03-11 23:48 | CON ---
DATE OF CONSULTATION: 03/11/2019 INDICATION FOR CONSULTATION: A 58-year-old patient who has new onset history of diabetes and a history of hypertension, also is HIV positive. He was seen in the office recently, had a stress test in January, which showed some posterior inferior scar with hypokinesis. The inferior wall had possible periscar ischemia. He was advised to undergo a cardiac catheterization. He also had a vein study in January of this year, which showed venous insufficiency in the left greater saphenous vein and small saphenous vein, also the right greater saphenous vein below the knee. He was scheduled to undergo cardiac catheterization for evaluation of his coronary artery status, but unfortunately at the time of the cardiac catheterization, his blood sugars were found to be over 500, it was repeated, was still found to be significantly elevated. He had no indication that he was a diabetic and he was advised to be admitted to the hospital. He presented to the emergency room, was then admitted. He has had no chest pain. He did have some shortness of breath over the last several months. He has gained over 50 to 60 pounds, which appears to be fluid in nature. He was seen by the turpentiner. He did have acute renal insufficiency. Previous creatinine had been normal, it then increased up to 2.37 back down today to 1.41. He is also hypokalemic with his blood sugars being significantly elevated. He has had no evidence of infection. He was doing relatively well and workup was in progress for his diabetes as well as for his renal insufficiency and then today the patient developed an episode of atrial fibrillation, which has been intermittent for about 4-5 hours. He converted back to sinus rhythm after he was placed on IV diltiazem. He denied any symptoms during the episode. He did have some shortness of breath earlier today, but most likely at that time was not in atrial fibrillation. Otherwise, he has continued to do relatively well. He has no complaints from a cardiac standpoint at this time, but did have significant abdominal distention, which most likely is fluid and also has some mild lower extremity edema, which is actually improved from the last time I saw him in the office. His renal function was normal in December of this year. He does have some history of chronic kidney disease; however, but like as noted the renal function was normal in December of this year. His ejection fraction has been about 50% to 55% with grade 1 diastolic dysfunction and trace mitral, tricuspid and pulmonary valve regurgitation. PAST MEDICAL HISTORY: Significant for hypertension, benign prostatic hypertrophy, HIV positive. He has had a pulmonary embolus in 2016. He has a history of diastolic dysfunction. He has a history of venous insufficiency. He has had a suprapubic catheter placed in February 2017. FAMILY HISTORY: Positive for diabetes and rheumatoid arthritis. MEDICATIONS: Prior to admission included: 1. Metolazone 5 mg 3 times a week. 2. Genvoya 150-200/10 one tablet daily. 3. Tamsulosin 0.4 mg capsules once daily. 4. Potassium 20 mEq daily. 5. Metoprolol 25 mg daily. 6. Torsemide 20 mg daily. 7. Hydrochlorothiazide 25 mg once daily. 8. Sulfamethoxazole. 9. Septra 800/160 tablets. He was taking on Friday, Wednesdays, and Fridays. I think he would stop taking that medicine. 10. He was on tramadol as needed. 11. Ferrous sulfate. ALLERGIES: HE IS ALLERGIC TO PENICILLIN. REVIEW OF SYSTEMS: GENERAL: He denied any fevers. He did complain of some weight gain. HEENT: Otherwise, he had no complaints. CARDIAC: He had no cardiac complaints except for the shortness of breath. He denied any chest pain. He had no palpitations. He did not notice any of these symptoms. GASTROINTESTINAL: He denied any nausea, vomiting, or diarrhea. He mainly complains of distention. RENAL: He denied any complaints of hematuria. He had no complaints of significant bruising or bleeding. No rashes or sores. No dizziness or syncope. PHYSICAL EXAMINATION: GENERAL: Reveals a middle-aged gentleman, who is overweight. VITAL SIGNS: Blood pressure is 120/68, heart rate is anywhere between 70 and 124, this times in the 80s. He has converted back to sinus rhythm. He is afebrile, respiratory rate is 18. HEENT: Shows the head to be normocephalic and atraumatic. Carotid pulses are present. I did not hear any bruits. CHEST: Actually clear to auscultation. Did not hear any rales, rhonchi, or wheezing. CARDIOVASCULAR: Reveals a regular rate and rhythm. I do not hear any S3 or S4 at this time. LUNGS: Clear. ABDOMEN: Shows some obesity and distention, but no tenderness. EXTREMITIES: Showed minimal lower extremity edema, perhaps 1+. Pulses are present. NEUROLOGIC: The patient appears to be nonfocal. SKIN: Warm and dry. LABORATORY DATA: At this time shows the potassium to be 2.7, BUN of 23, creatinine 1.47. Previous to admission was 2.37, sodium is now 134, blood sugar was 337, hemoglobin 12.6, hematocrit 36.5, WBC of 5.0. IMPRESSION: 1. New onset atrial fibrillation. He has been on IV diltiazem and converted back to sinus rhythm. We will continue this and then tomorrow morning, we will switch him over to p.o. diltiazem and stop the IV diltiazem. 2. History of abnormal stress test. This is not a significant amount of ischemia, but may be causing some of his atrial fibrillation. He is not having any symptoms or significant EKG changes at this time. Once he is more stable, we will consider cardiac catheterization, it can be done as an outpatient. 3. History of chronic kidney disease, which has now become acute. This is being dealt with by the turpentiner and has improved some. 4. New onset diabetes, which will be also dealt with the primary care service. 5. Diastolic dysfunction, which may have contributed some to his increased volume overload as well as intermittent atrial fibrillation that has been undiagnosed. Given his multiple risk factors, we will also suggest that we start him on Eliquis or some oral anticoagulant to decrease the risk of embolic phenomenon associated with the atrial fibrillation. Job ID: [id number]
--- NOTE | 2019-03-12 00:27 | CON ---
DATE OF CONSULTATION: 03/11/2019 REASON FOR CONSULTATION: HIV with newly identified diabetes mellitus and renal insufficiency. HISTORY OF PRESENT ILLNESS: A 58-year-old, known HIV infection for many years, who has had a sort of a stormy HIV control in the past many years due to issues with adherence to treatment and CD4 has usually stayed above 300, but of late that has been decreased associated with the diagnosis of prostate cancer and treatment for it I believe. At this time, he is admitted with progressive worsening edema and he was being readied for cardiac workup with catheterization and was noted to have hyperglycemia with renal insufficiency. He was admitted, has been given IV fluids and insulin, now is going to start on diuresis under supervision by Nephrology. He is actually looking pretty good. He is able to ambulate a little better. No headaches, visual symptoms, sore throat, odynophagia, or dysphagia. No cough or sputum production, chest pain. He does have abdominal distention, is voiding without difficulty and he has these hyperkeratotic lesions in the feet. No neurological symptoms. PAST MEDICAL HISTORY: Longstanding HIV infection. His last CD4 cell count was 174 three months ago. His viral load was 208, and prostate cancer with prostatectomy in [place] and radiation therapy. Also, hypertension, prior pulmonary embolism, and newly diagnosed diabetes type 2. ALLERGIES: PENICILLIN, THAT IS NOT CONFIRMED. FAMILY HISTORY: Diabetes in numerous members of family. SOCIAL HISTORY: Single. Works at [employer] for many years. MEDICATIONS: His current medication list; 1. Tylenol. 2. Catapres. 3. Dextrose. 4. Diltiazem. 5. Drisdol. 6. Pepcid. 7. Hydralazine. 8. Insulin. 9. Zofran. 10. Genvoya. 11. Flomax. PHYSICAL EXAMINATION: VITAL SIGNS: T-max 98.5, BP 130/82, pulse 102, respirations 18, O2 saturation 95. SKIN: Shows those hyperpigmented or hyperkeratotic plaques in the dorsal aspect of both feet. He has a peripheral IV access. No lymphadenopathy. HEENT: Ocular movements are conjugate. Sclerae are white. Pupils are equal. Oral cavity is normal. No jugular vein distention. LUNGS: Symmetric air entry with faint basilar crackles. HEART: S1, S2. Regular rate. No murmurs. ABDOMEN: Distended, globose, but not tender. No ascites. No bladder distention. No genital abnormalities. MUSCULOSKELETAL: No joint inflammatory activity. He moves all extremities equally. His cognitive function appears to be intact. LABORATORY DATA: White cell count is 6.3 and 5.0, hemoglobin 12.6, platelets 195. Sodium 134, creatinine 1.41, which is down from admission when it was 2.37. Liver profile normal. CK was 212, albumin 4.1. Random urine protein was elevated at 19, the normal is up to 14. Renal ultrasound with no evidence of hydronephrosis, some mural thickening in the urinary bladder. I do not see a urinalysis. ASSESSMENT: 1. Longstanding human immunodeficiency virus infection. Last CD4 174 with viral load 200. 2. Prostate cancer status post resection and radiation therapy. 3. Newly diagnosed diabetes mellitus, hyperglycemia, hemodynamically mediated decrease in renal function which is improving rapidly after admission. DISCUSSION: The patient will have this addressed, diabetes controlled, and eventually he will need a cardiac evaluation, may even require coronary angiogram. In the meantime, we will continue Genvoya and recheck his viral load and CD4 cell count. He may need to be on Bactrim prophylaxis depending on CD4 cell count results. Job ID: [id number]
[2019-03-12] MEDS: Acetaminophen 325 MG TAB PO PRN (03:18)
[2019-03-12] MEDS: Metoprolol Tartrate 25 MG TAB PO SCH ×2 (08:40→20:25)
[2019-03-12] MEDS: Tamsulosin HCl 0.4 MG CAP PO SCH ×2 (08:40→20:13)
[2019-03-12] MEDS: Ergocalciferol 1.25 MG(50,000 UNITS) CAP PO SCH (08:43)
[2019-03-12] MEDS: Insulin Glargine 25 UNITS in Pre-Filled Syringe 1 EACH SC SCH ×2 (08:43→21:16)
[2019-03-12] MEDS: Heparin 5,000 UNITS/ML VIAL SC SCH (08:43)
[2019-03-12] MEDS: Elviteg/Cob/Emtri/Tenof Alafen [Genvoya Tablet] 1 TAB PO SCH (08:44)
[2019-03-12] MEDS ORDERED: Non-Formulary Item 1 EACH (Elviteg/Cob/Emtri/Tenof Alafen [Genvoya Tablet] 1 TAB) PO SCH (09:00)
[2019-03-12] MEDS ORDERED: Sulfameth/Trimethoprim SS 400-80MG TAB PO SCH (09:00)
[2019-03-12] MEDS ORDERED: Insulin Glargine 15 UNITS in Pre-Filled Syringe 1 EACH SC SCH (09:00)
[2019-03-12 09:46] LABS: #Basophils 0.1 thou/uL (0.0-0.2); #Eosinphils 0.1 thou/uL (0.0-0.7); #Lymphocytes 1.1 thou/uL (1.20-3.40); #Monocytes 0.5 thou/uL (0.11-0.59); #Neutrophils 2.9 thou/uL (1.40-6.50); %Basophils 1.4 % (0.0-1.0); %Eosinophils 2.9 % (0.0-10.0); %Lymphocytes 23.7 % (21.0-51.0); %Monocytes 10.5 % (0.0-10.0); %Neutrophils 61.5 % (42.0-75.0); Hemoglobin 12.3 g/dL (14.0-18.0); Mean Corpuscular HGB CONC 33.3 g/dL (32.0-36.0); Mean Corpuscular Hemoglobin 31.8 pg (27.0-31.0); Mean Corpuscular Volume 95.5 fL (78.0-98.0); Mean Platelet Volume 6.7 fL (7.4-10.4); Platelet Count 185 thou/uL (130-400); RBC Distribution Width 13.4 % (11.5-14.5); Red Blood Cell (RBC) Count 3.88 mill/uL (4.70-6.10); White Blood Cell (WBC) Count 4.7 thou/uL (4.8-10.8)
[2019-03-12 10:07] LABS: Anion Gap 13 mmol/L (10-20); BUN (Urea Nitrogen) 15 mg/dL (8.4-25.7); Calc. Creatinine Clearance 119 mL/min (70-130); Calcium 9.6 mg/dL (7.8-10.44); Carbon Dioxide 34 mmol/L (22-29); Chloride 93 mmol/L (98-107); Estimated GFR-MDRD 79; Glucose 209 mg/dL (70-105); Sodium 137 mmol/L (136-145)
[2019-03-12 10:10] LABS: Potassium 2.8 mmol/L (3.5-5.1)
[2019-03-12] MEDS ORDERED: Potassium Chloride 20 MEQ TAB PO SCH (11:00)
[2019-03-12] MEDS: HumaLOG 300 UNITS/3 ML VIAL SC PRN ×2 (11:55→17:28)
--- NOTE | 2019-03-12 12:39 | PRG ---
DATE OF SERVICE: 03/12/2019 SUBJECTIVE: This is a 58-year-old gentleman, being seen for acute kidney injury. The patient denies any nausea, vomiting, or chest pain. OBJECTIVE: CONSTITUTIONAL: The patient is awake and alert. VITAL SIGNS: Afebrile, pulse 75, breathing 16, and blood pressure 170/64. GENERAL APPEARANCE AND MENTAL STATUS: Fair. HEAD/NECK: Normocephalic. Atraumatic. EYES: EOMI. No deformity. EARS: Clear. No ulcers. NOSE: Intact. No lesions. MOUTH: Clear. No discharge. THROAT: Clear. No exudate. LUNGS: Clear. No crackles. CARDIAC: S1, S2. No rub. ABDOMEN: Benign. Bowel sounds positive. GENITALIA/RECTUM: Verdin absent. BACK/EXTREMITIES: Edema 0+. NEUROLOGICAL: Alert and motor intact. SKIN: LYMPHATICS: LABORATORY DATA: Reviewed. ASSESSMENT AND PLAN: 1. Chronic kidney disease, stage 2, stable. 2. Acute kidney injury, resolved. 3. Acute tubular necrosis, resolved. 4. Hypokalemia. Recommend high potassium diet and checking magnesium. 5. Hypophosphatemia, suggest Fanconi like syndrome. Recommend high phosphate diet. 6. Medication based on GFR appropriate. Job ID: [id number]
--- NOTE | 2019-03-12 16:20 | PDOC.PN ---
- Subjective Encounter Start Date: 03/12/19 Encounter Start Time: 11:20 Mr. Mcfarland was seen today in follow-up of new onset diabetes. He does not have any new complaints other than abdominal distention. - Objective Resuscitation Status - Order Detail: 03/10/19 13:27 Resuscitation Status Routine Resuscitation Status: FULL: Full Resuscitation MAR Reviewed: Yes Vital Signs & Weight: Vital Signs (12 hours) Temp Pulse Resp BP Pulse Ox 03/12/19 11:05 97.8 F 62 14 117/64 96 03/12/19 08:40 61 03/12/19 07:50 98.2 F 57 L 16 126/73 96 Weight Weight 272 lb 8 oz I&O: 03/11/19 03/12/19 03/13/19 06:59 06:59 06:59 Intake Total 820 Output Total 780 Balance 40 Result Diagrams: 03/12/19 09:19 03/12/19 09:19 Additional Labs: Accuchecks 03/12/19 03/12/19 03/11/19 11:17 05:02 20:37 POC Glucose 231 H 215 H 345 H 03/11/19 16:48 POC Glucose 340 H Phys Exam - Physical Examination HEENT: PERRLA Respiratory: no wheezing, no rales, no rhonchi, clear to auscultation bilateral Cardiovascular: RRR, no significant murmur, no rub Gastrointestinal: soft, positive bowel sounds + abdominal distention,lower abdominal tenderness, umbillical hernia- reducible Musculoskeletal: no edema, pulses present + chronic venous stasis changes on the ankles Neurological: non-focal, normal sensation Dx/Plan (1) Diabetes mellitus type 2 in obese Code(s): E11.69 - TYPE 2 DIABETES MELLITUS WITH OTHER SPECIFIED COMPLICATION; E66.9 - OBESITY, UNSPECIFIED Status: Acute (2) Acute kidney injury Code(s): N17.9 - ACUTE KIDNEY FAILURE, UNSPECIFIED Status: Acute (3) Swelling of lower extremity Code(s): M79.89 - OTHER SPECIFIED SOFT TISSUE DISORDERS Status: Acute (4) Atrial fibrillation Code(s): I48.91 - UNSPECIFIED ATRIAL FIBRILLATION Status: Chronic Qualifiers: Atrial fibrillation type: paroxysmal Qualified Code(s): I48.0 - Paroxysmal atrial fibrillation (5) HIV (human immunodeficiency virus infection) Status: Chronic (6) HTN (hypertension) Code(s): I10 - ESSENTIAL (PRIMARY) HYPERTENSION Status: Chronic Qualifiers: Hypertension type: essential hypertension - Plan * New- Onset Diabetes- discussed with Dr. Pineda- it is best to continue with insulin in his situation, especially with his renal dysfunction. He could have a proximal tubule defect which is causing him to waste potassium and phosphorus. Will continue to titrate * Acute kidney injury- improved * Hypokalemia- continue to replace * Abdominal distention- will check a CT scan * HIV- he can re-start Genvoya, but will continue to hold prophylactic Bactrim * AFIB- his heart rate is better, and will start Eliquis, and change Diltiazem to p.o.
[2019-03-12] MEDS: Potassium Chloride 20 MEQ TAB PO SCH (17:28)
--- NOTE | 2019-03-12 19:59 | CT ---
CT Abdomen Pelvis WO Con History: Abdominal pain Comparison: CT November 23, 2018 Findings: Mild bronchiectasis in the lower lobes. No pericardial effusion. Diffuse hepatic steatosis. Marcated mesenteric fat. There is a small bowel containing infraumbilical hernia without evidence of obstruction. There is lack of normal haustrations of the sigmoid colon with wall thickening. The appendix is visua lized and is normal. No retroperitoneal periaortic adenopathy. Bridging anterior osteophyte at L5/S1. No acute osseous abn ormality. Impression: 1. Lack of normal haustration of the sigmoid colon with mild wall thickening suggesting colitis. No e vidence for perforation. 2. Small bowel containing infraumbilical hernia without evidence of obstruction. 3. Diffuse vague steatosis. 4. Nonobstructive bilateral small renal calculi.
[2019-03-12] MEDS: Apixaban 5 MG TAB PO SCH (20:13)
[2019-03-12] MEDS: Famotidine 20 MG TAB PO SCH (20:13)
[2019-03-12 22:04] LABS: Hemoglobin 11.2 g/dL (14.0-18.0); Platelet Count 161 thou/uL (130-400)
[2019-03-12] MEDS ORDERED: Melatonin 3 MG TAB PO SCH (23:45)
[2019-03-13 08:22] LABS: Anion Gap 10 mmol/L (10-20); BUN (Urea Nitrogen) 11 mg/dL (8.4-25.7); Calc. Creatinine Clearance 127 mL/min (70-130); Calcium 9.2 mg/dL (7.8-10.44); Carbon Dioxide 33 mmol/L (22-29); Chloride 96 mmol/L (98-107); Estimated GFR-MDRD 85; Glucose 168 mg/dL (70-105); Phosphorus 3.9 mg/dL (2.3-4.7); Potassium 2.8 mmol/L (3.5-5.1); Sodium 136 mmol/L (136-145)
[2019-03-13] MEDS: Potassium Chloride 20 MEQ TAB PO SCH ×2 (08:40→16:19)
[2019-03-13] MEDS: Apixaban 5 MG TAB PO SCH ×2 (08:40→20:42)
[2019-03-13] MEDS: Elviteg/Cob/Emtri/Tenof Alafen [Genvoya Tablet] 1 TAB PO SCH (08:41)
[2019-03-13] MEDS: Tamsulosin HCl 0.4 MG CAP PO SCH ×2 (08:41→20:42)
[2019-03-13] MEDS: Metoprolol Tartrate 25 MG TAB PO SCH ×2 (08:41→20:43)
[2019-03-13] MEDS: Insulin Glargine 25 UNITS in Pre-Filled Syringe 1 EACH SC SCH ×2 (09:03→20:42)
--- NOTE | 2019-03-13 09:39 | EKG ---
Test Reason : Blood Pressure : / mmHG Vent. Rate : 075 BPM Atrial Rate : 075 BPM P-R Int : 180 ms QRS Dur : 120 ms QT Int : 514 ms P-R-T Axes : 043 -01 140 degrees QTc Int : 573 ms Normal sinus rhythm Inferior infarct , age undetermined Cannot rule out Anterior infarct , age undetermined Abnormal ECG Confirmed by MERA SPICER ([id number]), managing editor FRANKIE PATHAK ([id number]) on 03/13/2019 9:39:28 AM Referred By: Confirmed By:MERA SPICER
[2019-03-13] MEDS: Potassium Chloride 20 MEQ in Premix Bag 1 BAG IVPB SCH ×2 (09:48→12:05)
[2019-03-13] MEDS: HumaLOG 300 UNITS/3 ML VIAL SC PRN ×3 (11:21→20:41)
[2019-03-13] MEDS: Acetaminophen 325 MG TAB PO PRN (11:23)
[2019-03-13] MEDS ORDERED: Potassium Chloride 20 MEQ TAB PO SCH (17:00)
[2019-03-13] MEDS: Famotidine 20 MG TAB PO SCH (20:43)
--- NOTE | 2019-03-13 21:48 | PDOC.PN ---
- Subjective Encounter Start Date: 03/13/19 Encounter Start Time: 09:00 Patient seen and examined for CHF/Afib/IRA. c/o abd fullness. No N/V. Had normal BM earlier today. No other complaints. No overnight events - Objective Resuscitation Status - Order Detail: 03/10/19 13:27 Resuscitation Status Routine Resuscitation Status: FULL: Full Resuscitation MAR Reviewed: Yes Vital Signs & Weight: Vital Signs (12 hours) Temp Pulse Resp BP Pulse Ox 03/13/19 16:21 98.2 F 65 18 138/77 99 03/13/19 11:27 97.7 F 57 L 18 116/71 97 03/13/19 10:50 65 Weight Weight 272 lb 8 oz I&O: 03/12/19 03/13/19 03/14/19 06:59 06:59 06:59 Intake Total 1480 1120 Output Total 800 700 760 Balance -800 780 360 Result Diagrams: 03/12/19 21:48 03/14/19 04:14 Additional Labs: Accuchecks 03/13/19 03/13/19 03/13/19 20:39 17:03 10:20 POC Glucose 257 H 203 H 189 H 03/13/19 05:29 POC Glucose 180 H Radiology Reviewed by me: Yes (CXR and renal USG reviewed) EKG Reviewed by me: Yes (Tele SB) Phys Exam - Physical Examination Constitutional: NAD Respiratory: no wheezing, no rales, no rhonchi dec AE at bases Cardiovascular: RRR, no rub no heaves/pulsations Gastrointestinal: soft, non-tender, positive bowel sounds distended Musculoskeletal: pulses present, edema present Neurological: non-focal, normal sensation, moves all 4 limbs Psychiatric: normal affect, A&O x 3 Dx/Plan - Plan IMPRESSION: Acute on chronic diastolic HF New onset Afib New onset DM2 IRA on CKD 2 Hypokalemia/Hyponatremia/Hypophosphatemia HIV/AIDS Obesity BMI 39 ?TOREY Other issues per previous notes PLAN: Add fluid restriction ?Diuretics - will d/w Cardiology/Nephrology AM labs Cont current dose of Insulin Replace electrolytes Add A1c in AM Cont Eliquis - Patient understands the risk associated with anticoag Change Cardizem CD 120 mg to short acting due to persistent bradycardia Review of Systems - Review of Systems Respiratory: negative: Cough, Dry, Shortness of Breath, Hemoptysis, SOB with Excertion, Pleuritic Pain, Sputum, Wheezing Cardiovascular: negative: chest pain, palpitations, orthopnea, paroxysmal nocturnal dyspnea, edema, light headedness, other Gastrointestinal: negative: Nausea, Vomiting, Abdominal Pain, Diarrhea, Constipation, Melena, Hematochezia, Other - Medications/Allergies Allergies/Adverse Reactions: Allergies Allergy/AdvReac Type Severity Reaction Status Date / Time Penicillins Allergy Verified 01/23/17 18:46 Medications: Current Medications Acetaminophen (Tylenol) 650 mg PO Q4H PRN PRN Reason: Headache/Fever/Mild Pain (1-3) Last Admin: 03/13/19 11:23 Dose: 650 mg Apixaban (Eliquis) 5 mg PO BID [facility] Last Admin: 03/13/19 20:42 Dose: 5 mg Clonidine (Catapres) 0.1 mg PO Q4H PRN PRN Reason: SBP >= 180 Dextrose/Water (Dextrose 50%) 25 gm SLOW IVP PRN PRN PRN Reason: Hypoglycemia Diltiazem HCl (Cardizem Cd) 120 mg PO DAILY [facility] Last Admin: 03/13/19 10:50 Dose: Not Given Diltiazem HCl (Cardizem) 30 mg PO Q6HR [facility] Last Admin: 03/13/19 18:01 Dose: 30 mg Ergocalciferol (Drisdol) 1.25 mg PO Q7DAYS [facility] Last Admin: 03/12/19 08:43 Dose: 1.25 mg Famotidine (Pepcid) 20 mg PO QPM [facility] Last Admin: 03/13/19 20:43 Dose: 20 mg Glucagon (Glucagon) 1 mg IM PRN PRN PRN Reason: Hypoglycemia Hydralazine HCl (Apresoline) 10 mg SLOW IVP Q4H PRN PRN Reason: SBP > 180 and HR < 70 Dextrose/Water (D5w) 1,000 mls @ 0 mls/hr IV .Q0M PRN PRN Reason: Hypoglycemia Insulin Glargine 25 units/ (Miscellaneous Medication) 0.25 mls @ 0 mls/hr SC HS [facility] Last Admin: 03/13/19 20:42 Dose: 0.25 mls Insulin Glargine 25 units/ (Miscellaneous Medication) 0.25 mls @ 0 mls/hr SC QAM [facility] Last Admin: 03/13/19 09:03 Dose: 0.25 mls Insulin Human Lispro (Humalog) 0 units SC .MODERATE SLIDING SC PRN PRN Reason: Moderate Correctional Scale Last Admin: 03/13/19 17:23 Dose: 4 unit Insulin Human Lispro (Humalog) 0 units SC .BEDTIME SLIDING SC PRN PRN Reason: Bedtime Correctional Scale Last Admin: 03/13/19 20:41 Dose: 3 unit Metoprolol Tartrate (Lopressor) 25 mg PO BID [facility] Last Admin: 03/13/19 20:43 Dose: 25 mg Ondansetron HCl (Zofran Odt) 4 mg PO Q6H PRN PRN Reason: Nausea/Vomiting Ondansetron HCl (Zofran) 4 mg IVP Q6H PRN PRN Reason: Nausea/Vomiting Elviteg/Cob/Emtri/Tenof Alafen [ Genvoya Tablet] 1 Tab 0 each PO DAILY [facility] Last Admin: 03/13/19 08:41 Dose: 1 each Potassium Chloride (K-Dur) 40 meq PO BID-[facility] Last Admin: 03/13/19 16:19 Dose: 40 meq Sodium Chloride (Flush - Normal Saline) 10 ml IVF Q12HR [facility] Last Admin: 03/13/19 20:43 Dose: 10 ml Sodium Chloride (Flush - Normal Saline) 10 ml IVF PRN PRN PRN Reason: Saline Flush Tamsulosin HCl (Flomax) 0.4 mg PO BID [facility] Last Admin: 03/13/19 20:42 Dose: 0.4 mg
[2019-03-14 04:54] LABS: Hemoglobin A1c 9.8 % (4.0-6.0)
[2019-03-14 05:06] LABS: Anion Gap 10 mmol/L (10-20); BUN (Urea Nitrogen) 10 mg/dL (8.4-25.7); Calc. Creatinine Clearance 146 mL/min (70-130); Calcium 9.4 mg/dL (7.8-10.44); Carbon Dioxide 30 mmol/L (22-29); Chloride 99 mmol/L (98-107); Estimated GFR-MDRD Greater than 90; Glucose 144 mg/dL (70-105); Sodium 136 mmol/L (136-145)
[2019-03-14] MEDS: Elviteg/Cob/Emtri/Tenof Alafen [Genvoya Tablet] 1 TAB PO SCH (08:20)
[2019-03-14] MEDS: Tamsulosin HCl 0.4 MG CAP PO SCH ×2 (08:21→21:35)
[2019-03-14] MEDS: Metoprolol Tartrate 25 MG TAB PO SCH ×2 (08:21→21:35)
[2019-03-14] MEDS: Potassium Chloride 20 MEQ TAB PO SCH ×3 (08:21→17:24)
[2019-03-14] MEDS: Potassium Chloride 20 MEQ in Premix Bag 1 BAG IVPB SCH ×2 (08:22→10:30)
[2019-03-14] MEDS: Apixaban 5 MG TAB PO SCH ×2 (08:23→21:35)
[2019-03-14] MEDS: Insulin Glargine 25 UNITS in Pre-Filled Syringe 1 EACH SC SCH ×2 (09:12→21:35)
[2019-03-14] MEDS: HumaLOG 300 UNITS/3 ML VIAL SC PRN ×3 (11:46→21:36)
--- NOTE | 2019-03-14 16:09 | PRG ---
DATE OF SERVICE: 03/14/2019 SUBJECTIVE: Having diarrhea and sensation of gurgling in his abdomen. No vomiting. No chest pain or cough. No abdominal pain. Voiding without difficulty. OBJECTIVE: VITAL SIGNS: Temperature normal. Other vital signs normal. GENERAL: Awake, alert, and oriented. HEART: S1 and S2, regular rate. LUNGS: Clear. ABDOMEN: Protuberant. EXTREMITIES: Moves all extremities equally. LABORATORY DATA: White cell count 4.7, hemoglobin 12.3, and platelets 185. Creatinine 0.94. Abdominal CT, mild lack of normal haustration of sigmoid colon with mild wall thickening, possible colitis, diffuse steatosis, nonobstructing renal calculi. ASSESSMENT AND DISCUSSION: 1. Longstanding HIV infection with erratic adherence to visits and anti-retroviral therapy in the past. 2. Prostate cancer, status post recent resection and radiation therapy. 3. Newly-diagnosed type 2 diabetes. 4. Renal insufficiency, which has improved now to normal GFR. Currently, on Genvoya to be continued in the outpatient setting and we are still waiting on the results of the CD4 cell count to determine if he needs pneumocystis prophylaxis or not. Job ID: [id number]
[2019-03-14 17:07] LABS: HIV-1 Quantitative, RNA PCR <20 copies/mL (.)
[2019-03-14] MEDS: Famotidine 20 MG TAB PO SCH (21:35)
--- NOTE | 2019-03-14 23:32 | PDOC.PN ---
- Subjective Encounter Start Date: 03/14/19 Encounter Start Time: 09:00 Patient seen and examined for CHF and other medical issues. SOB on exertion. No fever/chills. No new complaints. No overnight events - Objective Resuscitation Status - Order Detail: 03/10/19 13:27 Resuscitation Status Routine Resuscitation Status: FULL: Full Resuscitation MAR Reviewed: Yes Vital Signs & Weight: Vital Signs (12 hours) Temp Pulse Resp BP BP Pulse Ox 03/14/19 20:00 98.6 F 60 18 134/75 97 03/14/19 16:20 97.9 F 58 L 18 128/69 98 03/14/19 11:42 98.0 F 59 L 18 132/75 97 Weight Weight 279 lb 12.8 oz I&O: 03/13/19 03/14/19 03/15/19 06:59 06:59 06:59 Intake Total 1480 1170 875 Output Total 700 1060 1080 Balance 780 110 -205 Result Diagrams: 03/15/19 05:13 03/15/19 05:13 Additional Labs: Accuchecks 03/14/19 03/14/19 03/14/19 20:10 17:18 10:45 POC Glucose 238 H 167 H 214 H 03/14/19 05:20 POC Glucose 157 H EKG Reviewed by me: Yes Phys Exam - Physical Examination Constitutional: NAD Respiratory: no wheezing, no rhonchi Cardiovascular: RRR, no rub Gastrointestinal: soft, non-tender, positive bowel sounds Musculoskeletal: edema present Neurological: moves all 4 limbs Dx/Plan - Plan IMPRESSION: Acute on chronic diastolic HF New onset Afib - in SR New onset DM2 IRA on CKD 2 Hypokalemia/Hyponatremia/Hypophosphatemia HIV/AIDS Obesity BMI 39 ?TOREY Other issues per previous notes PLAN: Cont fluid restriction Resume Torsemide at 20 mg daily AM labs Cont sliding scale/Insulin Cont Eliquis/Cardizem Cont other meds as below Replace Potassium Review of Systems - Review of Systems Respiratory: SOB with Excertion. negative: Cough, Dry, Shortness of Breath, Hemoptysis, Pleuritic Pain, Sputum, Wheezing Cardiovascular: negative: chest pain, palpitations, orthopnea, paroxysmal nocturnal dyspnea, edema, light headedness, other Gastrointestinal: negative: Nausea, Vomiting, Abdominal Pain, Diarrhea, Constipation, Melena, Hematochezia, Other - Medications/Allergies Allergies/Adverse Reactions: Allergies Allergy/AdvReac Type Severity Reaction Status Date / Time Penicillins Allergy Verified 01/23/17 18:46 Medications: Current Medications Acetaminophen (Tylenol) 650 mg PO Q4H PRN PRN Reason: Headache/Fever/Mild Pain (1-3) Last Admin: 03/13/19 11:23 Dose: 650 mg Apixaban (Eliquis) 5 mg PO BID [facility] Last Admin: 03/14/19 21:35 Dose: 5 mg Clonidine (Catapres) 0.1 mg PO Q4H PRN PRN Reason: SBP >= 180 Dextrose/Water (Dextrose 50%) 25 gm SLOW IVP PRN PRN PRN Reason: Hypoglycemia Diltiazem HCl (Cardizem Cd) 120 mg PO DAILY [facility] Last Admin: 03/13/19 10:50 Dose: Not Given Diltiazem HCl (Cardizem) 30 mg PO Q6HR [facility] Last Admin: 03/14/19 17:24 Dose: 30 mg Ergocalciferol (Drisdol) 1.25 mg PO Q7DAYS [facility] Last Admin: 03/12/19 08:43 Dose: 1.25 mg Famotidine (Pepcid) 20 mg PO QPM [facility] Last Admin: 03/14/19 21:35 Dose: 20 mg Glucagon (Glucagon) 1 mg IM PRN PRN PRN Reason: Hypoglycemia Hydralazine HCl (Apresoline) 10 mg SLOW IVP Q4H PRN PRN Reason: SBP > 180 and HR < 70 Dextrose/Water (D5w) 1,000 mls @ 0 mls/hr IV .Q0M PRN PRN Reason: Hypoglycemia Insulin Glargine 25 units/ (Miscellaneous Medication) 0.25 mls @ 0 mls/hr SC HS [facility] Last Admin: 03/14/19 21:35 Dose: 0.25 mls Insulin Glargine 25 units/ (Miscellaneous Medication) 0.25 mls @ 0 mls/hr SC QAM [facility] Last Admin: 03/14/19 09:12 Dose: 0.25 mls Insulin Human Lispro (Humalog) 0 units SC .MODERATE SLIDING SC PRN PRN Reason: Moderate Correctional Scale Last Admin: 03/14/19 17:24 Dose: 2 unit Insulin Human Lispro (Humalog) 0 units SC .BEDTIME SLIDING SC PRN PRN Reason: Bedtime Correctional Scale Last Admin: 03/14/19 21:36 Dose: 2 unit Metoprolol Tartrate (Lopressor) 25 mg PO BID [facility] Last Admin: 03/14/19 21:35 Dose: 25 mg Ondansetron HCl (Zofran Odt) 4 mg PO Q6H PRN PRN Reason: Nausea/Vomiting Ondansetron HCl (Zofran) 4 mg IVP Q6H PRN PRN Reason: Nausea/Vomiting Elviteg/Cob/Emtri/Tenof Alafen [ Genvoya Tablet] 1 Tab 0 each PO DAILY [facility] Last Admin: 03/14/19 08:20 Dose: 1 each Potassium Chloride (K-Dur) 40 meq PO TID[facility] Last Admin: 03/14/19 17:24 Dose: 40 meq Sodium Chloride (Flush - Normal Saline) 10 ml IVF Q12HR [facility] Last Admin: 03/14/19 21:36 Dose: 10 ml Sodium Chloride (Flush - Normal Saline) 10 ml IVF PRN PRN PRN Reason: Saline Flush Tamsulosin HCl (Flomax) 0.4 mg PO BID [facility] Last Admin: 03/14/19 21:35 Dose: 0.4 mg
[2019-03-15 05:34] LABS: #Eosinphils 0.1 thou/uL (0.0-0.7); #Lymphocytes 1.1 thou/uL (1.20-3.40); #Monocytes 0.5 thou/uL (0.11-0.59); #Neutrophils 2.7 thou/uL (1.40-6.50); %Basophils 0.2 % (0.0-1.0); %Eosinophils 3.2 % (0.0-10.0); %Lymphocytes 25.9 % (21.0-51.0); %Monocytes 10.3 % (0.0-10.0); %Neutrophils 60.3 % (42.0-75.0); Hemoglobin 10.6 g/dL (14.0-18.0); Mean Corpuscular HGB CONC 32.7 g/dL (32.0-36.0); Mean Corpuscular Hemoglobin 31.7 pg (27.0-31.0); Mean Corpuscular Volume 97.1 fL (78.0-98.0); Mean Platelet Volume 6.7 fL (7.4-10.4); Platelet Count 164 thou/uL (130-400); RBC Distribution Width 14.1 % (11.5-14.5); Red Blood Cell (RBC) Count 3.35 mill/uL (4.70-6.10); White Blood Cell (WBC) Count 4.4 thou/uL (4.8-10.8)
[2019-03-15 05:53] LABS: Albumin 3.5 g/dL (3.5-5.0); Anion Gap 11 mmol/L (10-20); BUN (Urea Nitrogen) 8 mg/dL (8.4-25.7); Calc. Creatinine Clearance 141 mL/min (70-130); Carbon Dioxide 30 mmol/L (22-29); Chloride 102 mmol/L (98-107); Estimated GFR-MDRD Greater than 90; Glucose 136 mg/dL (70-105); Phosphorus 3.8 mg/dL (2.3-4.7); Potassium 3.8 mmol/L (3.5-5.1); Sodium 139 mmol/L (136-145)
[2019-03-15] MEDS ORDERED: Torsemide 20 MG TAB PO SCH ×2 (09:00)
[2019-03-15] MEDS: Potassium Chloride 20 MEQ TAB PO SCH ×3 (09:34→17:35)
[2019-03-15] MEDS: Metoprolol Tartrate 25 MG TAB PO SCH ×2 (09:36→21:44)
[2019-03-15] MEDS: Tamsulosin HCl 0.4 MG CAP PO SCH ×2 (09:36→21:45)
[2019-03-15] MEDS: Insulin Glargine 25 UNITS in Pre-Filled Syringe 1 EACH SC SCH ×2 (09:36→21:44)
[2019-03-15] MEDS: Apixaban 5 MG TAB PO SCH ×2 (09:36→21:44)
[2019-03-15] MEDS: Elviteg/Cob/Emtri/Tenof Alafen [Genvoya Tablet] 1 TAB PO SCH (09:37)
[2019-03-15 13:11] LABS: %CD4 (Helper/Inducer) 10.9 % (30.8-58.5); Absolute CD4 98 /uL (359-1519); Lymphocytes/Gated Cell Count 0.9 x10E3/uL (0.7-3.1); Total Lymphocyte 20 % (Not Estab.); WBC Total Count 4.5 x10E3/uL (3.4-10.8)
[2019-03-15] MEDS ORDERED: Furosemide 40 MG/4 ML VIAL SLOW IVP SCH (19:30)
--- NOTE | 2019-03-15 20:02 | PDOC.PN ---
- Subjective Encounter Start Date: 03/15/19 Encounter Start Time: 20:02 Patient seen and examined for CHF/Afib. No new complaints. No overnight events - Objective Resuscitation Status - Order Detail: 03/10/19 13:27 Resuscitation Status Routine Resuscitation Status: FULL: Full Resuscitation MAR Reviewed: Yes Vital Signs & Weight: Vital Signs (12 hours) Temp Pulse Resp BP Pulse Ox 03/15/19 17:33 98.6 F 48 L 18 124/58 L 98 03/15/19 11:41 97.7 F 69 16 136/75 97 03/15/19 08:45 96 Weight Weight 279 lb 12.8 oz I&O: 03/14/19 03/15/19 03/16/19 06:59 06:59 06:59 Intake Total 1170 1475 960 Output Total 1060 1080 1150 Balance 110 395 -190 Result Diagrams: 03/15/19 05:13 03/16/19 06:58 Additional Labs: Accuchecks 03/15/19 03/15/19 03/15/19 16:37 11:08 05:05 POC Glucose 195 H 154 H 124 H 03/14/19 20:10 POC Glucose 238 H EKG Reviewed by me: Yes (Tele SR) Phys Exam - Physical Examination Constitutional: NAD Respiratory: no wheezing, no rhonchi Cardiovascular: RRR, no rub Gastrointestinal: soft, non-tender Musculoskeletal: edema present Neurological: moves all 4 limbs Dx/Plan - Plan IMPRESSION: Acute on chronic diastolic HF - uncontrolled New onset Afib - in SR, on Eliquis/Cardizem New onset DM2 - on Insulin sliding scale with Lantus IRA on CKD 2 Hypokalemia/Hyponatremia/Hypophosphatemia HIV/AIDS Obesity BMI 39 ?TOREY Other issues per previous notes PLAN: Start IV Lasix 40 mg daily - I d/w Dr Kenny Goldsmith fluid restriction AM labs Cont current meds as below Reduce Potassium to 20 meq TID Review of Systems - Review of Systems Respiratory: SOB with Excertion. negative: Cough, Dry, Shortness of Breath, Hemoptysis, Pleuritic Pain, Sputum, Wheezing Cardiovascular: negative: chest pain, palpitations, orthopnea, paroxysmal nocturnal dyspnea, edema, light headedness, other - Medications/Allergies Allergies/Adverse Reactions: Allergies Allergy/AdvReac Type Severity Reaction Status Date / Time Penicillins Allergy Verified 01/23/17 18:46 Medications: Current Medications Acetaminophen (Tylenol) 650 mg PO Q4H PRN PRN Reason: Headache/Fever/Mild Pain (1-3) Last Admin: 03/13/19 11:23 Dose: 650 mg Apixaban (Eliquis) 5 mg PO BID [facility] Last Admin: 03/15/19 09:36 Dose: 5 mg Clonidine (Catapres) 0.1 mg PO Q4H PRN PRN Reason: SBP >= 180 Dextrose/Water (Dextrose 50%) 25 gm SLOW IVP PRN PRN PRN Reason: Hypoglycemia Diltiazem HCl (Cardizem) 30 mg PO Q6HR [facility] Last Admin: 03/15/19 17:35 Dose: Not Given Ergocalciferol (Drisdol) 1.25 mg PO Q7DAYS [facility] Last Admin: 03/12/19 08:43 Dose: 1.25 mg Famotidine (Pepcid) 20 mg PO QPM [facility] Last Admin: 03/14/19 21:35 Dose: 20 mg Furosemide (Lasix) 40 mg SLOW IVP NOW [facility] Stop: 03/15/19 21:30 Furosemide (Lasix) 40 mg SLOW IVP DAILY [facility] Glucagon (Glucagon) 1 mg IM PRN PRN PRN Reason: Hypoglycemia Hydralazine HCl (Apresoline) 10 mg SLOW IVP Q4H PRN PRN Reason: SBP > 180 and HR < 70 Dextrose/Water (D5w) 1,000 mls @ 0 mls/hr IV .Q0M PRN PRN Reason: Hypoglycemia Insulin Glargine 25 units/ (Miscellaneous Medication) 0.25 mls @ 0 mls/hr SC HS [facility] Last Admin: 03/14/19 21:35 Dose: 0.25 mls Insulin Glargine 25 units/ (Miscellaneous Medication) 0.25 mls @ 0 mls/hr SC QAM [facility] Last Admin: 03/15/19 09:36 Dose: 0.25 mls Insulin Human Lispro (Humalog) 0 units SC .MODERATE SLIDING SC PRN PRN Reason: Moderate Correctional Scale Last Admin: 03/14/19 17:24 Dose: 2 unit Insulin Human Lispro (Humalog) 0 units SC .BEDTIME SLIDING SC PRN PRN Reason: Bedtime Correctional Scale Last Admin: 03/14/19 21:36 Dose: 2 unit Metoprolol Tartrate (Lopressor) 25 mg PO BID [facility] Last Admin: 03/15/19 09:36 Dose: 25 mg Ondansetron HCl (Zofran Odt) 4 mg PO Q6H PRN PRN Reason: Nausea/Vomiting Ondansetron HCl (Zofran) 4 mg IVP Q6H PRN PRN Reason: Nausea/Vomiting Elviteg/Cob/Emtri/Tenof Alafen [ Genvoya Tablet] 1 Tab 0 each PO DAILY [facility] Last Admin: 03/15/19 09:37 Dose: 1 each Potassium Chloride (K-Dur) 20 meq PO TID-[facility] Last Admin: 03/15/19 17:35 Dose: 20 meq Simethicone (Mylicon Chewable) 80 mg PO [facility] Sodium Chloride (Flush - Normal Saline) 10 ml IVF Q12HR [facility] Last Admin: 03/15/19 09:37 Dose: 10 ml Sodium Chloride (Flush - Normal Saline) 10 ml IVF PRN PRN PRN Reason: Saline Flush Tamsulosin HCl (Flomax) 0.4 mg PO BID [facility] Last Admin: 03/15/19 09:36 Dose: 0.4 mg
[2019-03-15] MEDS: Famotidine 20 MG TAB PO SCH (21:44)
[2019-03-15] MEDS: Simethicone Chewable 80 MG TAB PO SCH (21:46)
[2019-03-16 07:30] LABS: Albumin 3.6 g/dL (3.5-5.0); Anion Gap 12 mmol/L (10-20); BUN (Urea Nitrogen) 11 mg/dL (8.4-25.7); BUN/Creatinine Ratio 10.48; Calc. Creatinine Clearance 134 mL/min (70-130); Carbon Dioxide 29 mmol/L (22-29); Chloride 101 mmol/L (98-107); Estimated GFR-MDRD 87; Glucose 136 mg/dL (70-105); Magnesium 1.7 mg/dL (1.6-2.6); Phosphorus 3.8 mg/dL (2.3-4.7); Potassium 3.3 mmol/L (3.5-5.1); Sodium 139 mmol/L (136-145)
[2019-03-16] MEDS: Simethicone Chewable 80 MG TAB PO SCH ×4 (08:40→21:29)
[2019-03-16] MEDS: Tamsulosin HCl 0.4 MG CAP PO SCH ×2 (08:40→21:29)
[2019-03-16] MEDS: Apixaban 5 MG TAB PO SCH ×2 (08:40→21:29)
[2019-03-16] MEDS: Insulin Glargine 25 UNITS in Pre-Filled Syringe 1 EACH SC SCH ×2 (08:42→21:29)
[2019-03-16] MEDS: Furosemide 40 MG/4 ML VIAL SLOW IVP SCH (08:45)
[2019-03-16] MEDS: Potassium Chloride 20 MEQ TAB PO SCH ×4 (08:51→16:05)
[2019-03-16] MEDS: Elviteg/Cob/Emtri/Tenof Alafen [Genvoya Tablet] 1 TAB PO SCH (08:55)
[2019-03-16] MEDS: Metoprolol Tartrate 25 MG TAB PO SCH ×2 (08:57→21:29)
--- NOTE | 2019-03-16 13:18 | PRG ---
DATE OF SERVICE: 03/16/2019 SUBJECTIVE: Patient was seen and examined at bedside and overnight events noted. Patient denies any shortness of breath or chest pain or palpitation. No history of nausea or vomiting or diarrhea or fever or chills or cramps. OBJECTIVE: GENERAL: This is a well-built male, in no apparent distress. VITAL SIGNS: Temperature 97.7, heart rate 72, respiratory rate 16, and blood pressure 133/70. HEENT: Atraumatic, normocephalic. Oral mucosa is moist NECK: Supple. CARDIOVASCULAR: S1, S2 heard. Rate and rhythm regular. RESPIRATORY: Clear to auscultation. GASTROINTESTINAL: Abdomen is soft. MUSCULOSKELETAL: No tenderness. No edema. DERMATOLOGIC: No skin rash. NEUROLOGIC: Alert and awake and oriented X3. No focal neurologic deficits. Moving all the extremities. PSYCHIATRIC: Mood and affect normal. LABORATORY DATA: Potassium is 3.3, BUN is 11, and creatinine is 1.05. ASSESSMENT AND PLAN: 1. Acute kidney injury on chronic kidney disease stage 2, renal function is stable. 2. Edema. No proteinuria detected. Agree with Lasix for now. 3. Hypokalemia. Replace and monitor. We will increase potassium dose. 4. Hypophosphatemia, monitor. Check magnesium level too. 5. Plan is to check magnesium, phosphorus, and potassium. 6. Again, renal function is stable. The patient remains edematous. We will follow. We will check a renin-aldosterone level for hypokalemia. Job ID: [id number]
--- NOTE | 2019-03-16 13:25 | PDOC.PN ---
- Subjective Encounter Start Date: 03/16/19 Encounter Start Time: 13:23 Patient seen and examined for CHF. SOB improving. Feels bloated. No new complaints. No overnight events - Objective Resuscitation Status - Order Detail: 03/10/19 13:27 Resuscitation Status Routine Resuscitation Status: FULL: Full Resuscitation MAR Reviewed: Yes Vital Signs & Weight: Vital Signs (12 hours) Temp Pulse Pulse Pulse Resp BP BP 03/16/19 11:54 97.7 F 72 16 03/16/19 11:10 88 93 120/84 130/75 03/16/19 08:35 03/16/19 08:33 97.6 F 46 L 18 03/16/19 03:10 97.6 F 65 16 BP Pulse Ox Pulse Ox Pulse Ox 03/16/19 11:54 133/70 97 03/16/19 11:10 96 99 03/16/19 08:35 98 03/16/19 08:33 163/82 H 98 03/16/19 03:10 124/75 96 Weight Weight 279 lb 12.8 oz I&O: 03/15/19 03/16/19 03/17/19 06:59 06:59 06:59 Intake Total 1475 1200 Output Total 1080 2050 Balance 395 -850 Result Diagrams: 03/15/19 05:13 03/16/19 06:58 Additional Labs: Accuchecks 03/16/19 03/16/19 03/15/19 10:40 05:33 23:38 POC Glucose 171 H 132 H 181 H 03/15/19 03/15/19 20:25 16:37 POC Glucose 186 H 195 H EKG Reviewed by me: Yes (Tele SB) Phys Exam - Physical Examination Constitutional: NAD Respiratory: no wheezing, no rhonchi Cardiovascular: RRR, no rub Gastrointestinal: soft, non-tender, positive bowel sounds Musculoskeletal: edema present (1+) Neurological: moves all 4 limbs Dx/Plan - Plan IMPRESSION: Acute on chronic diastolic HF - on IV Lasix New onset Afib - in SR, on Eliquis/Cardizem/Metoprolol New onset DM2 - on Insulin sliding scale with Lantus IRA on CKD 2 Hypokalemia Hyponatremia Hypophosphatemia HIV + with CD4 98. Dr Hsu notified. Bactrim on hold due to IRA on admission Obesity BMI 39 ?TOREY Other issues per previous notes PLAN: Cont IV Lasix 40 mg daily wiht fluid restriction Replace Potassium Change PO Cardizem to 30 mg TID due to persistent bradycardia AM labs Cont other meds as below Sleep study as outpt Renin/Aldosterone level ordered for AM PCP Prophylaxis per ID Review of Systems - Review of Systems Respiratory: negative: Cough, Dry, Shortness of Breath, Hemoptysis, SOB with Excertion, Pleuritic Pain, Sputum, Wheezing Cardiovascular: negative: chest pain, palpitations, orthopnea, paroxysmal nocturnal dyspnea, edema, light headedness, other Gastrointestinal: negative: Nausea, Vomiting, Abdominal Pain, Diarrhea, Constipation, Melena, Hematochezia, Other - Medications/Allergies Allergies/Adverse Reactions: Allergies Allergy/AdvReac Type Severity Reaction Status Date / Time Penicillins Allergy Verified 01/23/17 18:46 Medications: Current Medications Acetaminophen (Tylenol) 650 mg PO Q4H PRN PRN Reason: Headache/Fever/Mild Pain (1-3) Last Admin: 03/13/19 11:23 Dose: 650 mg Apixaban (Eliquis) 5 mg PO BID [facility] Last Admin: 03/16/19 08:40 Dose: 5 mg Clonidine (Catapres) 0.1 mg PO Q4H PRN PRN Reason: SBP >= 180 Dextrose/Water (Dextrose 50%) 25 gm SLOW IVP PRN PRN PRN Reason: Hypoglycemia Diltiazem HCl (Cardizem) 30 mg PO Q6HR [facility] Last Admin: 03/16/19 12:06 Dose: 30 mg Ergocalciferol (Drisdol) 1.25 mg PO Q7DAYS [facility] Last Admin: 03/12/19 08:43 Dose: 1.25 mg Famotidine (Pepcid) 20 mg PO QPM [facility] Last Admin: 03/15/19 21:44 Dose: 20 mg Furosemide (Lasix) 40 mg SLOW IVP DAILY [facility] Last Admin: 03/16/19 08:45 Dose: 40 mg Glucagon (Glucagon) 1 mg IM PRN PRN PRN Reason: Hypoglycemia Hydralazine HCl (Apresoline) 10 mg SLOW IVP Q4H PRN PRN Reason: SBP > 180 and HR < 70 Dextrose/Water (D5w) 1,000 mls @ 0 mls/hr IV .Q0M PRN PRN Reason: Hypoglycemia Insulin Glargine 25 units/ (Miscellaneous Medication) 0.25 mls @ 0 mls/hr SC HS [facility] Last Admin: 03/15/19 21:44 Dose: 0.25 mls Insulin Glargine 25 units/ (Miscellaneous Medication) 0.25 mls @ 0 mls/hr SC QAM [facility] Last Admin: 03/16/19 08:42 Dose: 0.25 mls Insulin Human Lispro (Humalog) 0 units SC .MODERATE SLIDING SC PRN PRN Reason: Moderate Correctional Scale Last Admin: 03/14/19 17:24 Dose: 2 unit Insulin Human Lispro (Humalog) 0 units SC .BEDTIME SLIDING SC PRN PRN Reason: Bedtime Correctional Scale Last Admin: 03/14/19 21:36 Dose: 2 unit Metoprolol Tartrate (Lopressor) 25 mg PO BID [facility] Last Admin: 03/16/19 08:57 Dose: Not Given Ondansetron HCl (Zofran Odt) 4 mg PO Q6H PRN PRN Reason: Nausea/Vomiting Ondansetron HCl (Zofran) 4 mg IVP Q6H PRN PRN Reason: Nausea/Vomiting Elviteg/Cob/Emtri/Tenof Alafen [ Genvoya Tablet] 1 Tab 0 each PO DAILY [facility] Last Admin: 03/16/19 08:55 Dose: 1 each Potassium Chloride (K-Dur) 40 meq PO TID[facility] Last Admin: 03/16/19 12:06 Dose: 40 meq Simethicone (Mylicon Chewable) 80 mg PO PCH[facility] Last Admin: 03/16/19 13:08 Dose: 80 mg Sodium Chloride (Flush - Normal Saline) 10 ml IVF Q12HR [facility] Last Admin: 03/16/19 08:49 Dose: 10 ml Sodium Chloride (Flush - Normal Saline) 10 ml IVF PRN PRN PRN Reason: Saline Flush Tamsulosin HCl (Flomax) 0.4 mg PO BID [facility] Last Admin: 03/16/19 08:40 Dose: 0.4 mg Trimethoprim/Sulfamethoxazole (Bactrim Ds) 1 tab PO DAILY [facility]
[2019-03-16] MEDS: Famotidine 20 MG TAB PO SCH (21:29)
[2019-03-17 05:16] LABS: Anion Gap 10 mmol/L (10-20); BUN (Urea Nitrogen) 11 mg/dL (8.4-25.7); Calc. Creatinine Clearance 141 mL/min (70-130); Calcium 9.1 mg/dL (7.8-10.44); Carbon Dioxide 31 mmol/L (22-29); Chloride 103 mmol/L (98-107); Estimated GFR-MDRD Greater than 90; Glucose 134 mg/dL (70-105); Potassium 4.1 mmol/L (3.5-5.1); Sodium 140 mmol/L (136-145)
[2019-03-17 05:18] LABS: Phosphorus 3.8 mg/dL (2.3-4.7)
[2019-03-17] MEDS: Metoprolol Tartrate 25 MG TAB PO SCH ×2 (08:43→21:05)
[2019-03-17] MEDS: Potassium Chloride 20 MEQ TAB PO SCH ×3 (08:44→16:42)
[2019-03-17] MEDS: Sulfameth/Trimethoprim DS 800-160mg TAB PO SCH (08:45)
[2019-03-17] MEDS: Simethicone Chewable 80 MG TAB PO SCH ×4 (08:45→21:05)
[2019-03-17] MEDS: Insulin Glargine 25 UNITS in Pre-Filled Syringe 1 EACH SC SCH ×2 (08:45→21:07)
[2019-03-17] MEDS: Furosemide 40 MG/4 ML VIAL SLOW IVP SCH (08:45)
[2019-03-17] MEDS: Tamsulosin HCl 0.4 MG CAP PO SCH ×2 (08:45→21:05)
[2019-03-17] MEDS: Apixaban 5 MG TAB PO SCH ×2 (08:45→21:05)
[2019-03-17] MEDS: Elviteg/Cob/Emtri/Tenof Alafen [Genvoya Tablet] 1 TAB PO SCH (08:48)
--- NOTE | 2019-03-17 11:03 | PRG ---
DATE OF SERVICE: 03/17/2019 SUBJECTIVE: Patient was seen and examined at bedside and overnight events noted. Patient denies any shortness of breath or chest pain or palpitation. No history of nausea or vomiting or diarrhea or fever or chills or cramps. OBJECTIVE: GENERAL: This is a well-built male, in no apparent distress. VITAL SIGNS: Temperature 97.5. Heart rate . Respiratory rate 18. Blood pressure 134/85. HEENT: Atraumatic, normocephalic. Oral mucosa is moist NECK: Supple. CARDIOVASCULAR: S1, S2 heard. Rate and rhythm regular. RESPIRATORY: Clear to auscultation. GASTROINTESTINAL: Abdomen is soft. MUSCULOSKELETAL: No tenderness. No edema. DERMATOLOGIC: No skin rash. NEUROLOGIC: Alert and awake and oriented X3. No focal neurologic deficits. Moving all the extremities. PSYCHIATRIC: Mood and affect normal. LABORATORY DATA: Potassium 4.1, BUN is 11, and creatinine is 1.7. ASSESSMENT AND PLAN: 1. Acute kidney injury on chronic kidney disease stage 2, stable labs. 2. Hypokalemia, better. 3. Edema. We will increase Lasix to 40 mg IV b.i.d. for few more doses. 4. Hypophosphatemia, better. Monitor electrolytes closely. Monitor strict I's and O's and limit fluid intake. We will follow. Job ID: [id number]
--- NOTE | 2019-03-17 11:05 | PDOC.PN ---
- Subjective Encounter Start Date: 03/17/19 (f/u volume overload) Encounter Start Time: 11:04 Subjective: Pt without complaints, denies any chest pain/n/v. BM's were loose and now -: becoming formed. Reports easy DALE - Objective Resuscitation Status - Order Detail: 03/10/19 13:27 Resuscitation Status Routine Resuscitation Status: FULL: Full Resuscitation Vital Signs & Weight: Vital Signs (12 hours) Temp Pulse Resp BP Pulse Ox 03/17/19 07:47 97.5 F L 54 L 18 134/85 98 03/17/19 07:45 98 03/17/19 03:17 97.8 F 56 L 22 H 148/86 H 97 03/17/19 00:00 97.7 F 52 L 21 H 107/55 L 98 Weight Weight 282 lb 8 oz I&O: 03/16/19 03/17/19 03/18/19 06:59 06:59 06:59 Intake Total 1200 840 Output Total 2050 1350 Balance -850 -510 Result Diagrams: 03/15/19 05:13 03/17/19 04:32 Additional Labs: Accuchecks 03/17/19 03/17/19 03/16/19 10:32 05:20 20:45 POC Glucose 168 H 135 H 189 H 03/16/19 03/16/19 16:48 10:40 POC Glucose 165 H 171 H EKG Reviewed by me: Yes (tele - sinus 40-60's, overnight brief 30s) Phys Exam - Physical Examination Constitutional: NAD Respiratory: no wheezing, no rales, no rhonchi Cardiovascular: RRR, no significant murmur Gastrointestinal: soft, non-tender, positive bowel sounds trace pitting edema bilateral Neurological: non-focal, moves all 4 limbs Psychiatric: normal affect Deviation from normal: thickened hyperpigmented skin of distal LE - chronic change Dx/Plan (1) Paroxysmal atrial fibrillation Code(s): I48.0 - PAROXYSMAL ATRIAL FIBRILLATION Status: Chronic (2) Acute kidney injury Code(s): N17.9 - ACUTE KIDNEY FAILURE, UNSPECIFIED Status: Resolved (3) Diabetes mellitus type 2 in obese Code(s): E11.69 - TYPE 2 DIABETES MELLITUS WITH OTHER SPECIFIED COMPLICATION; E66.9 - OBESITY, UNSPECIFIED Status: Chronic (4) BPH (benign prostatic hyperplasia) Code(s): N40.0 - BENIGN PROSTATIC HYPERPLASIA WITHOUT LOWER URINRY TRACT SYMP Status: Chronic Qualifiers: Lower urinary tract symptom presence: symptoms present Lower urinary tract symptom detail: unspecified Qualified Code(s): N40.1 - Benign prostatic hyperplasia with lower urinary tract symptoms (5) HTN (hypertension) Code(s): I10 - ESSENTIAL (PRIMARY) HYPERTENSION Status: Chronic Qualifiers: Hypertension type: essential hypertension Qualified Code(s): I10 - Essential (primary) hypertension - Plan * HR 40-60's with known idioventricular rhythm and easy DALE - will d/w Dr. Vaca who signed off. * normal EF on recent echo * DM - controlled on current lantus BID dosing - continue ISS with meals, will need close f/u with PCP * Volume overload - appreciate Dr. Cox/Nephro consult - lasix IV BID * HIV - on home meds * anemia - check iron/vitamin studies and occult blood * * dvt prophy - ambulatory and scd's * gi prophy - not indicated * code status full * * reviewed plan of care with patietn, no questions or further needs at end of eval * pt remains at high risk in current condition d/w Dr. Vaca earlier today - will d/c the diltiazem and follow patient's heart rate on telemetry. If he becomes tachycardic, may need pacemaker evaluation.
[2019-03-17 12:38] LABS: ANA Symphony (Qualitative) Negative (Negative); ANA Symphony (Quantitative) 0.3 Ratio (< 0.7 Negative); dsDNA IgG Antibody 1.8 IU/mL (<10 Negative)
[2019-03-17] MEDS: Furosemide 40 MG/4 ML VIAL IVP SCH (13:12)
[2019-03-17] MEDS: Famotidine 20 MG TAB PO SCH (21:05)
[2019-03-18] MEDS: Furosemide 40 MG/4 ML VIAL IVP SCH ×2 (05:53→13:49)
[2019-03-18 06:34] LABS: Anion Gap 13 mmol/L (10-20); BUN (Urea Nitrogen) 10 mg/dL (8.4-25.7); Calc. Creatinine Clearance 125 mL/min (70-130); Calcium 9.2 mg/dL (7.8-10.44); Carbon Dioxide 28 mmol/L (22-29); Chloride 106 mmol/L (98-107); Estimated GFR-MDRD 79; Glucose 125 mg/dL (70-105); Iron 102 ug/dL (65-175); Iron Binding Capacity, Total 306 mcg/dL (261-462); Magnesium 1.9 mg/dL (1.6-2.6); Potassium 4.5 mmol/L (3.5-5.1); Sodium 142 mmol/L (136-145)
[2019-03-18] MEDS: Metoprolol Tartrate 25 MG TAB PO SCH ×2 (08:28→21:05)
[2019-03-18] MEDS: Tamsulosin HCl 0.4 MG CAP PO SCH ×2 (08:28→21:05)
[2019-03-18] MEDS: Simethicone Chewable 80 MG TAB PO SCH ×4 (08:28→21:05)
[2019-03-18] MEDS: Potassium Chloride 20 MEQ TAB PO SCH ×3 (08:28→16:09)
[2019-03-18] MEDS: Sulfameth/Trimethoprim DS 800-160mg TAB PO SCH (08:28)
[2019-03-18] MEDS: Apixaban 5 MG TAB PO SCH ×2 (08:29→21:05)
[2019-03-18] MEDS: Elviteg/Cob/Emtri/Tenof Alafen [Genvoya Tablet] 1 TAB PO SCH (08:32)
[2019-03-18 08:57] LABS: Folate (Folic Acid) 9.5 ng/mL (7.0-31.4)
[2019-03-18] MEDS ORDERED: Ergocalciferol 1.25 MG(50,000 UNITS) CAP PO SCH (09:00)
[2019-03-18] MEDS: Insulin Glargine 25 UNITS in Pre-Filled Syringe 1 EACH SC SCH ×2 (09:31→21:06)
--- NOTE | 2019-03-18 12:10 | PRG ---
DATE OF SERVICE: 03/18/2019 SUBJECTIVE: Patient was seen and examined at bedside and overnight events noted. Patient denies any shortness of breath or chest pain or palpitation. No history of nausea or vomiting or diarrhea or fever or chills or cramps. OBJECTIVE: GENERAL: This is a well-built male, in no apparent distress. VITAL SIGNS: Temperature 97.8. Heart rate 64. Respiratory rate 18. Blood pressure 138/75. HEENT: Atraumatic, normocephalic. Oral mucosa is moist NECK: Supple. CARDIOVASCULAR: S1, S2 heard. Rate and rhythm regular. RESPIRATORY: Clear to auscultation. GASTROINTESTINAL: Abdomen is soft. MUSCULOSKELETAL: No tenderness. No edema. DERMATOLOGIC: No skin rash. NEUROLOGIC: Alert and awake and oriented X3. No focal neurologic deficits. Moving all the extremities. PSYCHIATRIC: Mood and affect normal. LABORATORY DATA: Potassium is 4.5, BUN is 10, creatinine is 1.1. ASSESSMENT AND PLAN: 1. Acute kidney injury on chronic kidney stage 2, stable. 2. Hypokalemia, better. 3. Edema. Continue on Lasix. No ascites reported, but advised the patient to limit fluid intake. 4. Anemia of chronic disease. 5. Overall plan is to continue on Lasix. Plan discussed with Dr. Santamaria. Job ID: [id number]
[2019-03-18 12:31] VITALS: BMI 39.3
--- NOTE | 2019-03-18 13:30 | PDOC.PN ---
- Subjective Encounter Start Date: 03/18/19 (f/u volume overload) Encounter Start Time: 13:28 Subjective: Pt c/o continued distended abdomen - ongoing, no significant change -: with diuresis in the hospital. denies any n/v/pain/change in appetite -: reports BMs are normal. States he had 2 surgeries for prostate - but prostate was not removed, he is not certain what occurred in each surgery. - Objective Resuscitation Status - Order Detail: 03/10/19 13:27 Resuscitation Status Routine Resuscitation Status: FULL: Full Resuscitation Vital Signs & Weight: Vital Signs (12 hours) Temp Pulse Resp BP Pulse Ox 03/18/19 11:12 97.8 F 64 18 138/75 99 03/18/19 08:28 97.7 F 54 L 16 133/74 98 03/18/19 04:00 97.8 F 61 16 122/66 97 Weight Admit Weight 272 lb 8 oz Weight 281 lb 14.4 oz I&O: 03/17/19 03/18/19 03/19/19 06:59 06:59 06:59 Intake Total 840 1140 Output Total 1350 2020 Balance -510 -880 Result Diagrams: 03/15/19 05:13 03/18/19 05:57 Additional Labs: Accuchecks 03/18/19 03/18/19 03/17/19 10:41 05:39 21:09 POC Glucose 149 H 130 H 223 H 03/17/19 16:42 POC Glucose 172 H EKG Reviewed by me: Yes (tele - sinus 35-50's) Phys Exam - Physical Examination Constitutional: NAD Respiratory: no wheezing, no rales, no rhonchi, clear to auscultation bilateral Cardiovascular: RRR, no significant murmur Gastrointestinal: soft, non-tender, positive bowel sounds Musculoskeletal: no edema no pitting edema in LE Neurological: non-focal, moves all 4 limbs Psychiatric: A&O x 3 Deviation from normal: pt feels down/depressed with abd girth and the impairment on his life Dx/Plan (1) Paroxysmal atrial fibrillation Code(s): I48.0 - PAROXYSMAL ATRIAL FIBRILLATION Status: Chronic (2) Acute kidney injury Code(s): N17.9 - ACUTE KIDNEY FAILURE, UNSPECIFIED Status: Resolved (3) Diabetes mellitus type 2 in obese Code(s): E11.69 - TYPE 2 DIABETES MELLITUS WITH OTHER SPECIFIED COMPLICATION; E66.9 - OBESITY, UNSPECIFIED Status: Chronic (4) BPH (benign prostatic hyperplasia) Code(s): N40.0 - BENIGN PROSTATIC HYPERPLASIA WITHOUT LOWER URINRY TRACT SYMP Status: Chronic Qualifiers: Lower urinary tract symptom presence: symptoms present Lower urinary tract symptom detail: unspecified Qualified Code(s): N40.1 - Benign prostatic hyperplasia with lower urinary tract symptoms (5) HTN (hypertension) Code(s): I10 - ESSENTIAL (PRIMARY) HYPERTENSION Status: Chronic Qualifiers: Hypertension type: essential hypertension Qualified Code(s): I10 - Essential (primary) hypertension - Plan * * HR 35-50's - yesterday the diltiazem was d/c and hold parameters are on the beta-erasmo. Pt is not sx with this - continue to monitor. If tachycardic, may need to reconsult Cards for consideration of pacemaker * * DM - controlled on current lantus BID dosing - continue ISS with meals, will need close f/u with PCP * * Volume overload - appreciate Dr. Cox/Nephro consult - lasix IV BID = possible discharge tomorrow * * Abd distension - uncertain etiology as no significant findings on Abd CT and Renal US - will order Abd US complete and doppler to evalute for fluid, or other pathology. This is affecting pt's quality of life, and has not responded to IV lasix. The swelling in his legs appears resolved/nearly resolved * * HIV - on home meds * anemia - stable - iron/vitamin b12 and folate all normal * * dvt prophy - ambulatory and scd's * gi prophy - not indicated * code status full * * reviewed plan of care with patireginan, no questions or further needs at end of eval * pt remains at high risk in current condition * possibly home tomorrow
[2019-03-18] MEDS: Famotidine 20 MG TAB PO SCH (21:05)
[2019-03-19] MEDS: Furosemide 40 MG/4 ML VIAL IVP SCH ×2 (05:53→13:32)
[2019-03-19 06:07] LABS: #Eosinphils 0.1 thou/uL (0.0-0.7); #Lymphocytes 1.2 thou/uL (1.20-3.40); #Monocytes 0.5 thou/uL (0.11-0.59); #Neutrophils 1.9 thou/uL (1.40-6.50); %Basophils 0.4 % (0.0-1.0); %Lymphocytes 32.9 % (21.0-51.0); %Monocytes 12.6 % (0.0-10.0); %Neutrophils 51.1 % (42.0-75.0); Hemoglobin 10.8 g/dL (14.0-18.0); Mean Corpuscular HGB CONC 31.7 g/dL (32.0-36.0); Mean Corpuscular Hemoglobin 31.3 pg (27.0-31.0); Mean Corpuscular Volume 98.7 fL (78.0-98.0); Mean Platelet Volume 6.3 fL (7.4-10.4); Platelet Count 198 thou/uL (130-400); RBC Distribution Width 14.3 % (11.5-14.5); Red Blood Cell (RBC) Count 3.45 mill/uL (4.70-6.10); White Blood Cell (WBC) Count 3.7 thou/uL (4.8-10.8)
[2019-03-19 06:23] LABS: Anion Gap 11 mmol/L (10-20); BUN (Urea Nitrogen) 11 mg/dL (8.4-25.7); Calc. Creatinine Clearance 126 mL/min (70-130); Calcium 9.3 mg/dL (7.8-10.44); Carbon Dioxide 28 mmol/L (22-29); Chloride 107 mmol/L (98-107); Estimated GFR-MDRD 81; Glucose 109 mg/dL (70-105); Magnesium 1.9 mg/dL (1.6-2.6); Phosphorus 4.2 mg/dL (2.3-4.7); Potassium 4.6 mmol/L (3.5-5.1); Sodium 141 mmol/L (136-145)
[2019-03-19] MEDS: Apixaban 5 MG TAB PO SCH (08:56)
[2019-03-19] MEDS: Metoprolol Tartrate 25 MG TAB PO SCH (08:56)
[2019-03-19] MEDS: Potassium Chloride 20 MEQ TAB PO SCH ×3 (08:56→16:10)
[2019-03-19] MEDS: Elviteg/Cob/Emtri/Tenof Alafen [Genvoya Tablet] 1 TAB PO SCH (08:57)
[2019-03-19] MEDS: Simethicone Chewable 80 MG TAB PO SCH ×3 (08:58→18:01)
[2019-03-19] MEDS: Insulin Glargine 25 UNITS in Pre-Filled Syringe 1 EACH SC SCH (08:58)
[2019-03-19] MEDS: Tamsulosin HCl 0.4 MG CAP PO SCH (08:58)
[2019-03-19] MEDS: Sulfameth/Trimethoprim DS 800-160mg TAB PO SCH (08:58)
[2019-03-19] MEDS: Ergocalciferol 1.25 MG(50,000 UNITS) CAP PO SCH (09:51)
--- NOTE | 2019-03-19 14:49 | ULT ---
EXAM: US Hepatic Doppler PROVIDED CLINICAL HISTORY: Unexplained abdominal distention. COMPARISON: CT abdomen on 03/12/2019. FINDINGS: This examination is limited due to overlying bowel gas as well as patient's body habitus. This limits evaluation of the parenchymal organs. The abdominal aorta is mostly obscured. The very limited visualized portions of the pancreas demonstr ates a normal sonographic appearance. Portions of the liver are not visualized due to extensive shadowing as well as increased echogenicity of the liver related to diffuse fatty infiltration. The liver is enlarged measuring 19 cm in craniocaudal dimensions. Spleen and bilateral kidneys demonstrate a grossly normal sonographic appearance. The right kidney me asures 10.1 cm in length and left kidney measure 11.8 cm in length. The gallbladder is contracted on this examination and is not adequately evaluated. The common duct is not visualized. Hepatic Doppler evaluation with spectral analysis and color-flow evaluation does demonstrate normal d irectional flow within the portal, hepatic, and splenic veins. Arterial waveform is demonstrated within the splenic artery. The hepatic artery is not visualized. IMPRESSION: 1. Very limited examination as described above. 2. The liver is incompletely evaluated, but there is evidence diffuse fatty infiltration of the liver with evidence of hepatomegaly. 3. Gallbladder is contracted and not evaluated. The common duct is also not visualized. 4. Normal directional flow is seen within the portal, hepatic, and splenic veins. Hepatic artery is n ot seen on this exam.
[2019-03-19 16:10] VITALS: BP 134/75; TEMP 98.5
--- NOTE | 2019-03-19 17:02 | PRG ---
DATE OF SERVICE: 03/19/2019 SUBJECTIVE: Patient was seen and examined at bedside and overnight events noted. Patient denies any shortness of breath or chest pain or palpitation. No history of nausea or vomiting or diarrhea or fever or chills or cramps. OBJECTIVE: GENERAL: This is an obese male, in no apparent distress. VITAL SIGNS: Temperature 98.5. Heart rate 77. Respiratory rate 18. Blood pressure 134/75. HEENT: Atraumatic, normocephalic. Oral mucosa is moist NECK: Supple. CARDIOVASCULAR: S1, S2 heard. Rate and rhythm regular. RESPIRATORY: Clear to auscultation. GASTROINTESTINAL: Abdomen is soft. MUSCULOSKELETAL: No tenderness. No edema. DERMATOLOGIC: No skin rash. NEUROLOGIC: Alert and awake and oriented X3. No focal neurologic deficits. Moving all the extremities. PSYCHIATRIC: Mood and affect normal. LABORATORY DATA: Potassium 4.6, BUN is 11, creatinine is 1.1. ASSESSMENT AND PLAN: 1. Acute kidney injury, stable. 2. Chronic kidney disease stage 3. 3. Edema controlled and okay with torsemide 40 mg p.o. daily and limit fluid intake. 4. Anemia. 5. Hypertension, stable. We will monitor. Job ID: [id number]
--- NOTE | 2019-03-19 23:11 | DIS ---
DATE OF ADMISSION: 03/10/2019 DATE OF DISCHARGE: 03/19/2019 CONSULTANTS: 1. Nephrology, Dr. Cox. 2. Infectious Disease, Dr. Hsu. 3. Cardiology, Dr. Vaca. MEDICATIONS: Medications were reconciled at discharge. New medications are: 1. Eliquis 5 mg p.o. b.i.d. 2. Colace 100 mg b.i.d. 3. Lantus 25 units subcutaneous b.i.d. 4. Polyethylene glycol 17 g p.o. daily. Discontinued medications are: 1. Hydrochlorothiazide and metolazone. These were discontinued by the personalized living assistant. Medications to resume are: 1. Genvoya one tablet daily. 2. Vitamin D one capsule every week of the 1.25 mg capsule. 3. Metoprolol tartrate 25 mg b.i.d. 4. Potassium chloride 20 mEq daily. 5. Bactrim single strength one as directed by Dr. Hsu. 6. Flomax 0.4 mg b.i.d. 7. Torsemide 20 mg two tablets p.o. daily. FINAL DIAGNOSES: 1. Acute on chronic diastolic heart failure. 2. Paroxysmal atrial fibrillation, now on full anticoagulation 3. Acute kidney injury with known chronic kidney disease stage 2. 4. New onset diabetes mellitus. 5. Anemia of chronic disease. 6. Generalized edema, improved. 7. Hepatic steatosis. 8. Infraumbilical hernia. 9. Abnormal cardiac stress test, needs follow up with SECONDARY DIAGNOSES: 1. Leukopenia. 2. HIV. 3. History of prostate cancer, status post radiation treatment with Dr. Barker. HISTORY OF PRESENT ILLNESS: Mr. Mcfarland is a 58-year-old male with the above medical problems, who presented to the emergency room with increasing abdominal girth, swelling in his legs, and feeling drowsy. He was to undergo a scheduled cardiac catheterization and his blood sugar was over 500 and his creatinine was 2.4. He was sent for further evaluation and treatment. Please see history and physical for full details. HOSPITAL COURSE: For the acute kidney injury, the patient underwent a renal ultrasound which was negative for hydronephrosis and he was followed by Dr. Pineda and Dr. Cox here, who attributed the acute kidney injury to ATN. He has been has undergone diuresis for volume overload with return to normal and his creatinine. He has been on 40 mg of IV Lasix twice daily through this hospitalization and tolerated it well with his creatinine returning to a normal level. Hypokalemia. The patient's presenting potassium level was 2.4 on admission. His potassium has been replaced with 3 times a day of potassium here and it is now normal. He will return to once daily dosing. The patient's blood sugar on admission was over 500. He has received diabetes education, placed on a diabetes diet, and has been started on Lantus 25 units twice daily. Over the past 24 hours, his blood sugars have ranged from a low of 99 to a high of 194. He will be discharged to continue the same amount of insulin. No oral medications were initiated in the hospital. I do anticipate that patient can be started on oral medication and weaned off the insulin in the outpatient setting. The patient has paroxysmal atrial fibrillation, as well as he has some sinus bradycardia. He was seen by Dr. Dyson on March 11, in consultation for new onset atrial fibrillation for which he was on IV diltiazem and he converted back to sinus rhythm. He was transitioned over to oral diltiazem, as well as on a beta erasmo. The patient did have an abnormal stress test in the outpatient setting. Per Dr. Dyson' note, not a significant amount of ischemia but enough that may be causing atrial fibrillation. When stable, consider cardiac catheterization which can be done as an outpatient. For the paroxysmal atrial fibrillation, it is recommended that he is on Eliquis for stroke risk reduction. The patient was managed on both metoprolol and diltiazem but due to bradycardia, the diltiazem has been stopped. His telemetry shows a rate of between 40 and 60 for which he is asymptomatic. Therefore, no change to the metoprolol. Close followup is recommended with Dr. Dyson. The patient has a known diagnosis of HIV and is followed by Dr. Hsu in the outpatient setting. He was continued on his usual Genvoya, as well as Bactrim for prophylaxis. He will continue these in the outpatient setting and will follow up with Dr. Hsu as directed. History of prostate cancer. The patient is uncertain of what surgeries that he has undergone. We requested records just prior to discharge from [facility] , which has not been received. This may be helpful for the patient's understanding of procedures at [facility] that were performed to understand the prostate cancer and any other followup. The patient has been concerned about increasing abdominal girth while here, which has been progressive over the past six months or so. An abdominal ultrasound shows hepatomegaly with fatty liver infiltration, but no significant findings to explain this increasing abdominal girth. There is no mention of ascites. He has normal hepatic flow. The kidneys are normal size. The pancreas was not visualized secondary to bowel gas. Will start some bowel medications and have the patient follow up with his primary care provider for further evaluation. Despite diuresis with IV Lasix, the patient did not note any significant change. The swelling in patient's legs is overall improved. His blood sugars are improved. His renal function has returned to normal and he does meet criteria for discharge to home. PHYSICAL EXAMINATION: VITAL SIGNS: On day of discharge, temp 98.5, pulse 77, respirations 17, sats 96 % on room air, and blood pressure 134/75. GENERAL: He is awake, alert, responsive, in no apparent distress. Able to speak in full sentences. LUNGS: Clear to auscultation bilateral. No audible wheezing, rhonchi or rales. HEART: Normal S1, S2. Regular rate and rhythm. No significant murmur. ABDOMEN: Soft with present bowel sounds. LOZANO FINDINGS AND TEST RESULTS: Renal panel today 141, 4.6, 107, 28, 11, 1.12 with a glucose of 109. Glucoses ranged in the past 24 hours, 99 to 194. Calcium 9.3, phos 4.2, Mag 1.9. Iron 102, TIBC 306, ferritin 807. Vitamin B12 of 565, folate 9.5. At the lowest, his potassium was 2.7. T bilirubin 0.3, AST 27, ALT 25, alkaline phosphatase 90, CK 212, total protein 7.5. Urine showed random urine total protein 19, urine creatinine 90. ARCHIE screen negative. Anti double stranded DNA was 1.8, consider negative. Absolute CD4 count 98. HIV-1 less than 20. Stool occult blood is negative for fecal occult. Abdominal ultrasound, limited exam. Liver incompletely evaluated, but diffuse fatty infiltration with evidence of hepatomegaly. Gallbladder contracted and not evaluated, normal directional flow within the portal hepatic and splenic veins. The hepatic artery is not seen on exam. Abdomen and pelvic CT, lack of normal haustration of sigmoid colon with mild wall thickening suggesting colitis, small bowel containing infraumbilical hernia without evidence of obstruction, diffuse vague steatosis and nonobstructive bilateral small renal calculi. Echocardiogram on 03/11, shows an EF of 55% to 60%, mild concentric LVH. Renal ultrasound on 03/11, shows no hydronephrosis. DIET: Heart healthy, diabetic consistent and fluid restricted to 1.5 L. FOLLOWUP: 1. Follow up with Dr. Kovacs on March 24 at 9 a.m. to evaluate this hospitalization, work with diabetes and monitoring and obtaining records from [facility] in [place]. 2. Follow up with Dr. Hsu as previously scheduled. 3. Follow up with Dr. Dyson on April 05 at 3:45 p.m. 4. Follow up with Dr. Gallardo as previously directed. 5. Follow up with Dr. Cox on Friday next week for lab work and for an office visit. ACTIVITY: As tolerated. DISCHARGE DISPOSITION: Home. CODE STATUS: Full. Reviewed with patient this hospitalization, the changes in medication and new medications, the importance of followup and to seek care precautions. No questions or further needs at the end of evaluation. TIME SPENT: Total time coordinating discharge is 55 minutes. Job ID: [id number] [id number]
[2019-03-20 15:09] LABS: Renin Activity 1.74 ng/mL/hr (0.167-5.380)
== END 2019-03-19 19:42 | disposition home or self-care (01) | DRG 682 ==
LOC: ERS 07:57 → 2NO 11:30
PROVIDERS: ADMIT Internal Medicine; ATTEND Internal Medicine
DX: N17.0 Acute kidney failure with tubular necrosis (principal); I50.33 Acute on chronic diastolic (congestive) heart failure; I13.0 Hypertensive heart and chronic kidney disease with heart failure and stage 1 through stage 4 chronic kidney disease, or unspecified chronic kidney disease; E87.1 Hypo-osmolality and hyponatremia; E87.6 Hypokalemia; D64.9 Anemia, unspecified; I48.0 Paroxysmal atrial fibrillation; N18.3 Chronic kidney disease, stage 3 (moderate); Z21 Asymptomatic human immunodeficiency virus [HIV] infection status; E11.9 Type 2 diabetes mellitus without complications; E83.39 Other disorders of phosphorus metabolism; E66.9 Obesity, unspecified; R00.1 Bradycardia, unspecified; N40.0 Benign prostatic hyperplasia without lower urinary tract symptoms; R14.0 Abdominal distension (gaseous); K76.0 Fatty (change of) liver, not elsewhere classified; K42.9 Umbilical hernia without obstruction or gangrene; D72.819 Decreased white blood cell count, unspecified; Z86.711 Personal history of pulmonary embolism; Z85.46 Personal history of malignant neoplasm of prostate; Z88.0 Allergy status to penicillin; Z90.79 Acquired absence of other genital organ(s); Z87.891 Personal history of nicotine dependence; Z68.39 Body mass index [BMI] 39.0-39.9, adult; Z92.3 Personal history of irradiation
CPT/HCPCS: 36415; 36416; 74176; 76705; 76770; 80048; 80053; 80069; 80076; 82088; 82274; 82550; 82553; 82570; 82607; 82728; 82746; 83036; 83540; 83550; 83735; 84100; 84156; 84244; 84484; 85025; 85048; 86038; 86225; 86361; 87536; 93005; 93306; 93798; 96361; 96374; J1644; J1815; J1940; J3480; J3490

== ENCOUNTER 2020-05-16 14:25 | Outpatient (CLI) | payer BC | END 2020-05-16 14:26 | disposition home or self-care (01) | LOC: DTY/OP 14:25 | PROVIDERS: ATTEND Nurse Practitioner Family | DX: E66.01 Morbid (severe) obesity due to excess calories (principal) | CPT/HCPCS: 97802 ==

== ENCOUNTER 2020-06-08 09:53 | Inpatient (IN) | payer BC, OTHER ==
[2020-06-08 10:29] LABS: #Eosinphils 0.1 thou/uL (0.0-0.7); #Lymphocytes 2.2 thou/uL (1.20-3.40); #Monocytes 0.5 thou/uL (0.11-0.59); #Neutrophils 3.1 thou/uL (1.40-6.50); %Basophils 0.1 % (0.0-1.0); %Eosinophils 2.4 % (0.0-10.0); %Lymphocytes 36.4 % (21.0-51.0); %Monocytes 9.1 % (0.0-10.0); Mean Corpuscular HGB CONC 31.3 g/dL (32.0-36.0); Mean Corpuscular Hemoglobin 29.1 pg (27.0-31.0); Mean Platelet Volume 6.7 fL (7.4-10.4); Platelet Count 222 thou/uL (130-400); RBC Distribution Width 16.1 % (11.5-14.5); Red Blood Cell (RBC) Count 3.45 mill/uL (4.70-6.10)
[2020-06-08 10:35] LABS: INR-International Normal Ratio 1.2; PTT 29.1 sec (22.9-36.1); Prothrombin Time 15.1 sec (12.0-14.7)
[2020-06-08 10:48] LABS: ALT (SGPT) 15 U/L (8-55); AST (SGOT) 17 U/L (5-34); Albumin 3.9 g/dL (3.4-4.8); Alkaline Phosphatase 80 U/L (40-110); Anion Gap 11 mmol/L (10-20); BUN (Urea Nitrogen) 27 mg/dL (8.4-25.7); Bilirubin, Total 0.5 mg/dL (0.2-1.2); Calc. Creatinine Clearance 0 mL/min (70-130); Calcium 9.3 mg/dL (7.8-10.44); Carbon Dioxide 32 mmol/L (23-31); Chloride 97 mmol/L (98-107); Estimated GFR-MDRD 65; Globulin 3.3 g/dL (2.4-3.5); Glucose 138 mg/dL (80-115); Potassium 3.6 mmol/L (3.5-5.1); Protein, Total 7.2 g/dL (5.8-8.1); Sodium 136 mmol/L (136-145)
--- NOTE | 2020-06-08 13:28 | PDOC.HHP ---
Hospitalist HPI - History of Present Illness Dark stools History of Present Illness: PCP: Dr. Kovacs The patient is a 60-year-old male with a past medical history significant for atrial fibrillation (on Eliquis), pulmonary embolism, prostate cancer (last radiation treatment 01/09), HIV and diabetes type 2 that presents to the ER for the above complaint. Patient reports that he had 3 large, dark stools y . Describes as "look like grape jelly". Denies any abdominal pain, nausea, vomiting, diarrhea. He is on Eliquis, denies any heavy NSAID usage, steroids, family clotting disorders or history of liver disease. Last colonoscopy was "clear" in 2018, by Dr. Doty. Denies feeling lightheaded, short of breath or chest pain. Denies any fever or chills. He saw his PCP today, who suggested that he go to the emergency department for further evaluation. ED Course: VITAL SIGNS FriJun 08, 2020 09:53 BERNADETTE Hussein Lauren BP: 108/65, Pulse: 67, Resp: 18, Temp: 98 (Oral), Pain: 0, O2 sat: 100 on (Room Air), Time: 06/08/2020 09:53. VITAL SIGNS [facility] Jun 08, 2020 12:21 BERNADETTE Sharma Katelyn BP: 110/66, Pulse: 67, Resp: 16, Temp: 97.9 (Oral), Pain: 0, O2 sat: 97 on (Room Air), Time: 06/08/2020 12:21. Medication administration: None Hospitalist ROS - Review of Systems All other systems reviewed; all pertinent +/- noted in HPI/Subj - Medication Medications: 1. Metoprolol 25 mg p.o. twice daily 2. Atorvastatin 20 mg p.o. nightly 3. Flomax 0.4 mg p.o. daily 4. Spironolactone 25 mg p.o. daily 5. Torsemide 20 mg p.o. twice daily 6. metolazone 5 mg p.o. Friday and , 30 minutes after torsemide. 7. Pifeltro 100 mg p.o. daily 8. Tivicay 50 mg p.o. daily 9. Losartan 25 mg p.o. daily 10. Potassium chloride 20 mEq p.o. twice daily 11. Bactrim 1 tablet M/W/F by mouth. Allergies: No known drug allergies Hospitalist History - Past Medical History Source: patient, RN notes reviewed Cardiac: reports: AFIB (On Eliquis), HTN, Hyperlipidemia Heme/Onc: reports: Cancer (Prostate cancer, last radiation 12/2019) Infectious Disease: reports: HIV Renal/: reports: Benign prostatic enlarg. Endocrine: reports: Diabetes (Type II) - Past Surgical History Past Surgical History: reports: Other (Suprapubic catheter (2017), prostate surgery) - Social History Smoking Status: Never smoker Alcohol: reports: None Drugs: reports: none Living Situation: Alone Occupation: Works as a systems software manager at [employer] Activity level: independent ambulation - Exam General Appearance: NAD, awake alert Eye: PERRL, anicteric sclera ENT: normocephalic atraumatic Neck: supple, symmetric Neck - other findings: Pill mucous membranes and lips Heart: no murmur, no gallops, no rubs Respiratory: CTAB, no wheezes, no rales, no ronchi, normal chest expansion, no tachypnea Gastrointestinal: soft, non-tender, normal bowel sounds, no bruit, no guarding, no rigidity Extremities: no cyanosis, no edema Skin: no rashes Neurological: normal sensation to touch, no weakness, no focal deficits Musculoskeletal: normal tone, normal strength Psychiatric: normal affect, A&O x 3 Hospitalist Results - Labs Result Diagrams: 06/08/20 16:23 06/08/20 10:13 Lab results: WBC 6.0 thou/uL (4.8-10.8) 06/08/20 10:13 Hgb 10.0 g/dL (14.0-18.0) L 06/08/20 10:13 Hct 32.1 % (42.0-52.0) L 06/08/20 10:13 MCV 93.0 fL (78.0-98.0) 06/08/20 10:13 Plt Count 222 thou/uL (130-400) 06/08/20 10:13 Neutrophils % 52.0 % (42.0-75.0) 06/08/20 10:13 Sodium 136 mmol/L (136-145) 06/08/20 10:13 Potassium 3.6 mmol/L (3.5-5.1) 06/08/20 10:13 Chloride 97 mmol/L (98-107) L 06/08/20 10:13 Carbon Dioxide 32 mmol/L (23-31) H 06/08/20 10:13 BUN 27 mg/dL (8.4-25.7) H 06/08/20 10:13 Creatinine 1.34 mg/dL (0.7-1.3) H 06/08/20 10:13 Glucose 138 mg/dL (80-115) H 06/08/20 10:13 Calcium 9.3 mg/dL (7.8-10.44) 06/08/20 10:13 Total Bilirubin 0.5 mg/dL (0.2-1.2) 06/08/20 10:13 AST 17 U/L (5-34) 06/08/20 10:13 ALT 15 U/L (8-55) 06/08/20 10:13 Alkaline Phosphatase 80 U/L (40-110) 06/08/20 10:13 Serum Total Protein 7.2 g/dL (5.8-8.1) 06/08/20 10:13 Albumin 3.9 g/dL (3.4-4.8) 06/08/20 10:13 Hospitalist H&P A/P - Problem (1) GI bleed Code(s): K92.2 - GASTROINTESTINAL HEMORRHAGE, UNSPECIFIED Status: Acute (2) Acute blood loss anemia Code(s): D62 - ACUTE POSTHEMORRHAGIC ANEMIA Status: Acute (3) Atrial fibrillation Code(s): I48.91 - UNSPECIFIED ATRIAL FIBRILLATION Status: Chronic (4) History of pulmonary embolism Code(s): Z86.711 - PERSONAL HISTORY OF PULMONARY EMBOLISM Status: Resolved (5) HIV (human immunodeficiency virus infection) Code(s): B20 - HUMAN IMMUNODEFICIENCY VIRUS [HIV] DISEASE Status: Chronic (6) History of prostate cancer Code(s): Z85.46 - PERSONAL HISTORY OF MALIGNANT NEOPLASM OF PROSTATE Status: Chronic (7) DMII (diabetes mellitus, type 2) Status: Chronic Assessment and Plan: Presented BG 138 Takes lantus 25u BId at home Will restart at 1/2 home dosing CL diet. AC/HS Mod ISS - Plan Plan: 60/M with PMH for atrial fibrillation, on Eliquis, HIV and prostate cancer presents for melena. Admit to medical floor, observation status. Expected length of stay less than 2 midnights. #GI bleed Presented borderline hypotensive and bradycardic, however on beta-blockers. Patient is asymptomatic. FOBT positive, hemoglobin 10, hematocrit 32 PT 15.1, INR 1.2 BUN 27, creatinine 1.34 Trend H&H every 6 hours. Iron studies, check folate B12. Orthostatics. PPIs. Gentle IV fluid resuscitation and encourage oral fluid intake. Consult GI, Dr. Doty. Last colonoscopy was "clear" in [address] Doty. #Acute blood loss anemia Likely related to problem #1 #Atrial fibrillation Get baseline EKG. Hold home dose of Eliquis. #History of pulmonary embolism Hold home dose of Eliquis. #HIV On exam, no signs of secondary infection. WBCs 6 Patient takes Bactrim prophylactically Friday/Friday/Friday Takes Pifeltro and Tivicay. Reports being compliant. Unknown last CD4 count. #History of prostate cancer History of suprapubic catheter 2016 History of prostate surgery Last radiation in December 2019 Take Flomax daily. We will restart Flomax. SCDs for DVT prophylaxis. No pharmacological DVT prophylaxis. PPIs for GI prophylaxis. Full code. Discussed case with Dr. Sidhu.
[2020-06-08] MEDS ORDERED: Ondansetron ODT 4 MG TAB PO PRN (15:51)
[2020-06-08] MEDS ORDERED: Ondansetron PF 4 MG/2 ML Vial IVP PRN (15:51)
[2020-06-08] MEDS ORDERED: Dextrose 50% Abboject 50 ML SYRINGE SLOW IVP PRN (15:55)
[2020-06-08] MEDS ORDERED: HumaLOG 300 UNITS/3 ML VIAL SC PRN ×2 (15:55)
[2020-06-08] MEDS ORDERED: Dextrose 5% in Water 1,000 ML IV PRN (15:55)
[2020-06-08 16:12] VITALS: BMI 37.7
[2020-06-08 16:47] LABS: Reticulocyte Count 3.4 % (0.5-1.5)
[2020-06-08 17:17] LABS: Iron 72 ug/dL (65-175); Iron Binding Capacity, Total 358 mcg/dL (261-462)
[2020-06-08] MEDS: Sodium Chloride 0.9% 1,000 ML IV SCH (17:18)
[2020-06-08 17:43] LABS: Ferritin 132.18 ng/mL (22-322)
[2020-06-08] MEDS: Tamsulosin HCl 0.4 MG CAP PO SCH (20:30)
[2020-06-08] MEDS: Pantoprazole 40 MG VIAL IVP SCH (20:30)
[2020-06-08] MEDS ORDERED: PRE FILLED SC SCH (21:00)
[2020-06-08] MEDS ORDERED: INSULIN GLARGINE SC SCH (21:00)
[2020-06-09 03:07] LABS: Bacteria/HPF None Seen HPF (None Seen); Bilirubin Negative (Negative); Blood, Urine Negative (Negative); Clarity Clear (Clear); Glucose, Urine (Dipstick) Normal (Negative); Ketone, Urine Negative (Negative); Leukocyte Negative Leu/uL (Negative); Nitrite Negative (Negative); Protein, Urine (Dipstick) Negative (Neg-Trace); RBC/HPF 0-3 HPF (0-3); Specific Gravity, Urine 1.016 (1.002-1.036); Squamous Epithelial 0-3 HPF (0-3); Urobilinogen Normal mg/dL (Less than 2); WBC/HPF 0-3 HPF (0-3)
[2020-06-09 05:58] LABS: #Eosinphils 0.3 thou/uL (0.0-0.7); #Monocytes 0.7 thou/uL (0.11-0.59); #Neutrophils 3.6 thou/uL (1.40-6.50); %Basophils 0.5 % (0.0-1.0); %Eosinophils 4.1 % (0.0-10.0); %Lymphocytes 30.3 % (21.0-51.0); Hemoglobin 8.9 g/dL (14.0-18.0); Mean Corpuscular HGB CONC 31.3 g/dL (32.0-36.0); Mean Corpuscular Volume 92.5 fL (78.0-98.0); Mean Platelet Volume 6.9 fL (7.4-10.4); Platelet Count 199 thou/uL (130-400); RBC Distribution Width 15.9 % (11.5-14.5); Red Blood Cell (RBC) Count 3.06 mill/uL (4.70-6.10); White Blood Cell (WBC) Count 6.5 thou/uL (4.8-10.8)
[2020-06-09 06:15] LABS: Anion Gap 12 mmol/L (10-20); BUN (Urea Nitrogen) 21 mg/dL (8.4-25.7); Calc. Creatinine Clearance 133 mL/min (70-130); Calcium 8.8 mg/dL (7.8-10.44); Carbon Dioxide 29 mmol/L (23-31); Chloride 100 mmol/L (98-107); Estimated GFR-MDRD Greater than 90; Glucose 141 mg/dL (80-115); Potassium 3.3 mmol/L (3.5-5.1); Sodium 138 mmol/L (136-145)
[2020-06-09] MEDS ORDERED: Electrolyte Replacement Protoc 1 EACH EACH IVPB PRN (07:54)
[2020-06-09] MEDS ORDERED: Electrolyte Replacement Protocol FS PRN (08:00)
[2020-06-09] MEDS ORDERED: Potassium Chloride 20 MEQ in Premix Bag 1 BAG IVPB SCH (08:00)
[2020-06-09] MEDS ORDERED: Potassium Chloride 20 MEQ/100 ML PREMIX BAG IVPB SCH (08:00)
[2020-06-09] MEDS: Sodium Chloride 0.9% 1,000 ML IV SCH ×2 (08:04→20:32)
[2020-06-09] MEDS: Pantoprazole 40 MG VIAL IVP SCH ×2 (08:05→20:35)
[2020-06-09] MEDS: Tamsulosin HCl 0.4 MG CAP PO SCH ×2 (08:05→20:35)
[2020-06-09] MEDS ORDERED: Potassium Chloride 40 MEQ in Sodium Chloride 0.9% 250 ML 250 ML IVPB SCH (08:30)
[2020-06-09] MEDS ORDERED: Magnesium 2 GM/50 ML 2 GM in Premix Bag 1 BAG IVPB SCH (12:00)
--- NOTE | 2020-06-09 12:29 | CON ---
DATE OF CONSULTATION: 06/09/2020 CHIEF COMPLAINT: Blood in the stool. HISTORY OF PRESENT ILLNESS: Mr. Mcfarland is a 60-year-old man who 2 days ago developed red small volume gelatinous bowel movement followed by a larger volume of red, liquidy, bloody stool that ran down his leg. The next morning he had another episode, and he called his primary physician, was directed to the emergency room. He was found to have a decrease in his hemoglobin from baseline, and GI was consulted to evaluate the bleeding. This morning, he had a brown bowel movement. However, yesterday, he did have more of a maroon-type dark bloody stool. He has had no rectal pain with this. No nausea or vomiting or abdominal pain. No diarrhea or constipation preceding this. He underwent prostate surgery and radiation back in 2018. His last colonoscopy and upper endoscopy are in 2017, which were normal. PAST MEDICAL HISTORY: HIV, CHF, atrial fibrillation, pulmonary embolism, prostate cancer, and diabetes mellitus. PAST SURGICAL HISTORY: Prostate surgery. FAMILY HISTORY: Negative for GI malignancy. SOCIAL HISTORY: He is a former smoker. No alcohol. No drugs. ALLERGIES: PENICILLIN. MEDICATIONS: 1. Eliquis as an outpatient. His last dose was yesterday. 2. Metoprolol. 3. . 4. Flomax. 5. Spironolactone. 6. Torsemide. 7. Metolazone. 8. Pifeltro. 9. Tivicay. 10. Losartan. REVIEW OF SYSTEMS: Negative x10 systems reviewed except as stated in the History of Present Illness. PHYSICAL EXAMINATION: VITAL SIGNS: Temperature is 97.8, pulse 75, and blood pressure 125/80. GENERAL: He is in no acute distress. Alert and oriented x3. HEENT: Eyes have no scleral icterus. Oropharynx is clear without lesions. NECK: No cervical or supraclavicular lymphadenopathy LUNGS: Clear to auscultation bilaterally. HEART: Regular rate and rhythm without murmur. ABDOMEN: Soft, nontender, and nondistended. Bowel sounds are present. RECTAL: Exam reveals brown stool in the rectal vault, but this is scant. There is a small skin ulceration in the gluteal cleft, which has no depth. Does not appear to be a significant bleeding source. EXTREMITIES: 1+ pitting lower extremity edema. LABORATORY DATA: White blood cell count 6.5; hemoglobin is 8.9 down from 10.0 on initial presentation; and platelets 199. INR 1.2, creatinine 1.01. Ferritin 132, iron 72, and TIBC 358. Liver tests were normal. IMPRESSION: 1. Gastrointestinal bleed. He presents with dark red bloody stool; however, later, bowel movement was brown this morning. Overall, this is more suggestive of a distal or lower gastrointestinal bleeding source. However, given the dark stool and drop in his hemoglobin, we will evaluate with both upper and lower endoscopy to determine the bleeding source in light of his need for anticoagulation. He did have a normal esophagogastroduodenoscopy and colonoscopy in June of 2017. 2. Congestive heart failure. 3. Atrial fibrillation. 4. History of pulmonary embolism, on Eliquis, last dose yesterday. RECOMMENDATIONS: 1. We will plan bowel prep today for colonoscopy and EGD tomorrow. 2. Follow trend of his hemoglobin. Job ID: [id number]
[2020-06-09] MEDS ORDERED: Potassium Chloride 20 MEQ TAB PO SCH (17:00)
[2020-06-09] MEDS ORDERED: GoLYTELY 4,000 ml Bottle PO SCH (17:00)
[2020-06-09 17:24] LABS: SARS-CoV-2 MS2 Positive; SARS-CoV-2 N Gene Positive; SARS-CoV-2 S Gene Negative; SARS-CoV-2 by NAA Indeterminate (NotDetected); SARS-CoV-2 orf1ab Negative
--- NOTE | 2020-06-09 23:03 | PDOC.HOSPP ---
- Subjective Encounter Date: 06/09/20 Encounter Time: 12:30 Subjective: Patient seen and examined for anemia due to GI bleeding. No new episodes of rectal bleeding. No nausea or hematemesis. No chest pain or shortness of breath. Feels generally weak and fatigue. - Objective Vital Signs & Weight: Vital Signs (12 hours) Temp Pulse Resp BP Pulse Ox 06/09/20 20:03 98.2 F 80 18 151/79 H 96 06/09/20 15:48 98.0 F 72 18 132/80 98 06/09/20 11:38 98.2 F 90 20 137/77 97 Weight Weight 274 lb 0.4 oz I&O: 06/08/20 06/09/20 06/10/20 06:59 06:59 06:59 Intake Total 620 1860 Balance 620 1860 Result Diagrams: 06/10/20 06:42 06/10/20 06:42 Additional Labs: Accuchecks 06/09/20 06/09/20 06/09/20 20:12 15:53 11:40 POC Glucose 136 H 117 H 121 H Laboratory Tests 06/08/20 06/08/20 06/08/20 10:13 16:39 16:39 Hgb 10.0 L Potassium Iron 72 TIBC 358 Ferritin 132.18 06/09/20 06/09/20 05:39 05:39 Hgb 8.9 L Potassium 3.3 L Iron TIBC Ferritin Hospitalist ROS - Review of Systems Respiratory: denies: cough, dry, shortness of breath, hemoptysis, SOB with excertion, pleuritic pain, sputum, wheezing, other Cardiovascular: denies: chest pain, palpitations, orthopnea, paroxysmal noc. dyspnea, edema, light headedness, other - Medication Medications: Active Medications Generic Name Dose Route Start Last Admin Trade Name Freq PRN Reason Stop Dose Admin Insulin Glargine 12.5 units/ 0.125 mls @ 0 mls/hr 06/08/20 21:00 06/08/20 20:31 Miscellaneous Medication SC 0.125 mls BID HALEY Administration Pantoprazole Sodium 40 mg 06/08/20 21:00 06/09/20 20:35 Pantoprazole 40 Mg Vial IVP 40 mg BID HALEY Administration Polyethylene Glycol/Electrolytes 4,000 ml 06/09/20 17:00 06/09/20 17:07 Golytely 4,000 Ml Bottle PO 06/09/20 23:59 4,000 ml 1700 HALEY Administration Tamsulosin HCl 0.4 mg 06/08/20 21:00 06/09/20 20:35 Tamsulosin Hcl 0.4 Mg Cap PO 0.4 mg BID HALEY Administration - Exam General Appearance: NAD Neck: supple, no JVD Heart: no gallops, no rubs Respiratory: no rales, no ronchi Gastrointestinal: soft, no guarding, no rigidity Extremities: no cyanosis, no clubbing Neurological: no new deficit Musculoskeletal: generalized weakness Hosp A/P (1) GI bleed Code(s): K92.2 - GASTROINTESTINAL HEMORRHAGE, UNSPECIFIED Status: Acute (2) Acute blood loss anemia Code(s): D62 - ACUTE POSTHEMORRHAGIC ANEMIA Status: Acute (3) Hypokalemia Code(s): E87.6 - HYPOKALEMIA Status: Acute (4) Atrial fibrillation Code(s): I48.91 - UNSPECIFIED ATRIAL FIBRILLATION Status: Chronic (5) DMII (diabetes mellitus, type 2) Status: Chronic (6) History of pulmonary embolism Code(s): Z86.711 - PERSONAL HISTORY OF PULMONARY EMBOLISM (7) Other issues per H&P - Plan DVT proph w/SCDs Continue close monitoring. Continue IV PPIs. Will replace magnesium and potassium. Diuretics on hold. EGD and colonoscopy in a.m. per GI recommendation. Continue Flomax. Continue other medications above. Recheck labs in a.m. including CBC
[2020-06-10 07:11] LABS: #Eosinphils 0.2 thou/uL (0.0-0.7); #Lymphocytes 1.5 thou/uL (1.20-3.40); #Monocytes 0.4 thou/uL (0.11-0.59); #Neutrophils 2.7 thou/uL (1.40-6.50); %Basophils 0.7 % (0.0-1.0); %Eosinophils 3.8 % (0.0-10.0); %Lymphocytes 31.3 % (21.0-51.0); %Neutrophils 55.3 % (42.0-75.0); Hemoglobin 8.5 g/dL (14.0-18.0); Mean Corpuscular HGB CONC 32.6 g/dL (32.0-36.0); Mean Corpuscular Hemoglobin 29.9 pg (27.0-31.0); Mean Corpuscular Volume 91.9 fL (78.0-98.0); Mean Platelet Volume 6.8 fL (7.4-10.4); Platelet Count 200 thou/uL (130-400); RBC Distribution Width 15.9 % (11.5-14.5); Red Blood Cell (RBC) Count 2.85 mill/uL (4.70-6.10); White Blood Cell (WBC) Count 4.9 thou/uL (4.8-10.8)
[2020-06-10 07:35] LABS: Anion Gap 14 mmol/L (10-20); BUN (Urea Nitrogen) 8 mg/dL (8.4-25.7); Calc. Creatinine Clearance 158 mL/min (70-130); Calcium 8.5 mg/dL (7.8-10.44); Carbon Dioxide 27 mmol/L (23-31); Chloride 100 mmol/L (98-107); Estimated GFR-MDRD Greater than 90; Glucose 140 mg/dL (80-115); Sodium 138 mmol/L (136-145)
[2020-06-10 07:50] LABS: Potassium 2.8 mmol/L (3.5-5.1)
[2020-06-10] MEDS ORDERED: Potassium Chloride 40 MEQ in Premix Bag 1 BAG IVPB SCH (08:15)
[2020-06-10] MEDS ORDERED: Potassium Chloride 40 MEQ in Sodium Chloride 0.9% 250 ML 250 ML IVPB SCH (08:15)
[2020-06-10] MEDS ORDERED: Ketamine 50 MG/ML (10ML VIAL) ONE (08:17)
[2020-06-10] MEDS ORDERED: Potassium Chloride 20 MEQ TAB PO SCH (09:00)
[2020-06-10] MEDS: Pantoprazole 40 MG VIAL IVP SCH (10:41)
--- NOTE | 2020-06-10 10:42 | OP ---
DATE OF PROCEDURE: 06/10/2020 OPERATIVE PROCEDURE: Esophagogastroduodenoscopy with biopsy. PREOPERATIVE DIAGNOSIS: GI bleeding. POSTOPERATIVE DIAGNOSES: 1. Hiatal hernia. 2. . DESCRIPTION OF PROCEDURE: The patient was placed on his left lateral position and was given sedation by Anesthesia Department. A Pentax video gastroscope under direct vision passed down the oropharynx, past the GE junction into the stomach and subsequently into the descending duodenum. The esophageal mucosa appears normal throughout. In the GE junction, no pathology. Retroflexion failed to show any pathology in the fundus and cardia. The gastric body over the lower part showed . This was biopsied. In the gastric incisura, no lesion seen. In the gastric antrum, no lesion seen. In the duodenal bulb, descending duodenum, no pathology. The stomach was decompressed and the scope was removed. Job ID: [id number]
[2020-06-10] MEDS ORDERED: PROPOFOL 200 MG/20 ML VIAL ONE (10:43)
[2020-06-10] MEDS: Tamsulosin HCl 0.4 MG CAP PO SCH ×2 (10:51→20:28)
--- NOTE | 2020-06-10 11:39 | OP ---
DATE OF PROCEDURE: 06/10/2020 PROCEDURE PERFORMED: Colonoscopy. PREOPERATIVE DIAGNOSIS: Hematochezia. POSTOPERATIVE DIAGNOSES: Rectal ulcer measuring approximately 1.5 cm without any active bleeding. However, there were couple of areas of erythematous villalobos indicative of recent bleeding. Otherwise, normal colonoscopy. DESCRIPTION OF PROCEDURE: The patient was placed on his left lateral position and was given sedation by Anesthesia Department. A rectal exam was done before the scope was advanced into the rectum. No lesions felt on rectal exam. A Pentax video colonoscope was introduced into the rectum and advanced all the way into the cecum. The ileocecal area and cecum, no pathology seen. The mucosa appears normal throughout the colon with normal vascular pattern. Withdrawal of scope in the cecum to ascending colon, hepatic flexure, no lesions seen. The transverse colon, splenic flexure, descending colon, sigmoid colon, no lesions seen. The rectum showed an ulceration with couple of areas of erythematous spots indicative of recent bleeding. No active bleeding seen and also hemorrhoids. RECOMMENDATIONS: 1. Diet as tolerated. 2. From GI standpoint, the patient can be discharged home. 3. Needs to get back on regular records there is a risk of rebleeding. Job ID: [id number]
[2020-06-10] MEDS: Potassium Chloride 20 MEQ TAB PO SCH ×3 (11:47→20:28)
[2020-06-10] MEDS ORDERED: Spironolactone 25 MG TAB PO SCH (12:15)
--- NOTE | 2020-06-10 12:36 | PDOC.HOSPP ---
- Subjective Encounter Date: 06/10/20 Encounter Time: 12:00 Subjective: Patient seen and examined for anemia due to GI bleeding. Underwent EGD that showed mild gastritis with hiatal hernia. Colonoscopy showed rectal ulcernonbleeding. No new GI bleeding episode this admission. Feels generally weak and fatigued. - Objective Vital Signs & Weight: Vital Signs (12 hours) Temp Pulse Resp BP Pulse Ox 06/10/20 11:47 97.9 F 80 20 149/88 H 97 06/10/20 07:38 99 06/10/20 07:24 98.1 F 75 18 144/88 H 99 Weight Weight 274 lb 0.4 oz I&O: 06/09/20 06/10/20 06/11/20 06:59 06:59 06:59 Intake Total 620 2760 Output Total 250 Balance 620 2510 Result Diagrams: 06/10/20 06:42 06/10/20 06:42 Additional Labs: Accuchecks 06/10/20 06/10/20 06/09/20 11:48 05:26 20:12 POC Glucose 118 H 113 H 136 H 06/09/20 15:53 POC Glucose 117 H Hospitalist ROS - Review of Systems Respiratory: denies: cough, dry, shortness of breath, hemoptysis, SOB with excertion, pleuritic pain, sputum, wheezing, other Cardiovascular: denies: chest pain, palpitations, orthopnea, paroxysmal noc. dyspnea, edema, light headedness, other - Medication Medications: Active Medications Generic Name Dose Route Start Last Admin Trade Name Freq PRN Reason Stop Dose Admin Potassium Chloride 40 meq 06/10/20 12:00 06/10/20 11:47 Potassium Chloride 20 Meq Tab PO 06/10/20 17:01 40 meq TID-WM HALEY Administration Tamsulosin HCl 0.4 mg 06/08/20 21:00 06/10/20 10:51 Tamsulosin Hcl 0.4 Mg Cap PO 0.4 mg BID HALEY Administration - Exam General Appearance: NAD Neck: supple, no JVD Heart: RRR, no gallops Respiratory: no wheezes, no ronchi Gastrointestinal: soft, non-distended, no guarding, no rigidity Extremities: no cyanosis, no clubbing Hosp A/P (1) GI bleed Code(s): K92.2 - GASTROINTESTINAL HEMORRHAGE, UNSPECIFIED Status: Acute (2) Acute blood loss anemia Code(s): D62 - ACUTE POSTHEMORRHAGIC ANEMIA Status: Acute (3) Diabetes mellitus type 2 in obese Code(s): E11.69 - TYPE 2 DIABETES MELLITUS WITH OTHER SPECIFIED COMPLICATION; E66.9 - OBESITY, UNSPECIFIED Status: Chronic (4) Atrial fibrillation Code(s): I48.91 - UNSPECIFIED ATRIAL FIBRILLATION Status: Chronic (5) Hypokalemia Code(s): E87.6 - HYPOKALEMIA Status: Acute (6) Hypomagnesemia Code(s): E83.42 - HYPOMAGNESEMIA Status: Acute (7) History of pulmonary embolism Code(s): Z86.711 - PERSONAL HISTORY OF PULMONARY EMBOLISM Status: Chronic (8) Other issues per H&P - Plan DVT proph w/SCDs Patient underwent EGD and colonoscopy as discussed above. Will change PPI to p.o. Potassium today is 2.8. Will replace potassium aggressively. Patient was found to have a rectal ulcer. I discussed with gastroenterology who recommended to restart anticoagulationI discussed with the patient who feels comfortable starting it back tomorrow.. Restart Spironolactone. Recheck labs in a.m. Possible discharge tomorrow morning if stable. Resume selected home medication. Restart Lantus at low-dose. IV iron infusion.
[2020-06-10] MEDS ORDERED: Iron, Sodium Ferric Gluconate 250 MG in Sodium Chloride 0.9% 100 ML IVPB SCH (12:45)
[2020-06-10] MEDS ORDERED: Torsemide 20 MG TAB PO PRN (12:54)
[2020-06-10] MEDS: Atorvastatin Calcium 20 MG TAB PO SCH (20:28)
[2020-06-10] MEDS: Metoprolol Tartrate 25 MG TAB PO SCH (20:31)
[2020-06-10] MEDS: Insulin Glargine 10 UNITS in Pre-Filled Syringe 1 EACH SC SCH (20:34)
[2020-06-11 05:45] LABS: #Eosinphils 0.2 thou/uL (0.0-0.7); #Monocytes 0.5 thou/uL (0.11-0.59); #Neutrophils 2.3 thou/uL (1.40-6.50); %Basophils 0.5 % (0.0-1.0); %Eosinophils 3.7 % (0.0-10.0); %Monocytes 10.2 % (0.0-10.0); %Neutrophils 45.6 % (42.0-75.0); Hemoglobin 7.9 g/dL (14.0-18.0); Mean Corpuscular HGB CONC 32.1 g/dL (32.0-36.0); Mean Corpuscular Hemoglobin 30.3 pg (27.0-31.0); Mean Corpuscular Volume 94.3 fL (78.0-98.0); Mean Platelet Volume 6.9 fL (7.4-10.4); Platelet Count 192 thou/uL (130-400); RBC Distribution Width 16.1 % (11.5-14.5); Red Blood Cell (RBC) Count 2.61 mill/uL (4.70-6.10)
[2020-06-11 06:04] LABS: Anion Gap 9 mmol/L (10-20); BUN (Urea Nitrogen) 5 mg/dL (8.4-25.7); Calc. Creatinine Clearance 153 mL/min (70-130); Calcium 8.3 mg/dL (7.8-10.44); Carbon Dioxide 27 mmol/L (23-31); Chloride 106 mmol/L (98-107); Estimated GFR-MDRD Greater than 90; Glucose 124 mg/dL (80-115); Sodium 138 mmol/L (136-145)
[2020-06-11] MEDS: Metoprolol Tartrate 25 MG TAB PO SCH ×2 (08:58→20:02)
[2020-06-11] MEDS: Tamsulosin HCl 0.4 MG CAP PO SCH ×2 (08:58→20:02)
[2020-06-11] MEDS: Potassium Chloride 20 MEQ TAB PO SCH ×2 (08:58→20:02)
[2020-06-11] MEDS: Spironolactone 25 MG TAB PO SCH (08:59)
[2020-06-11] MEDS ORDERED: Dolutegravir Sodium [Tivicay] 50 MG PO SCH (09:00)
[2020-06-11] MEDS ORDERED: DORAVIRINE 100 MG PO SCH ×2 (09:00)
[2020-06-11] MEDS ORDERED: Torsemide 20 MG TAB PO SCH ×2 (09:00→14:15)
[2020-06-11] MEDS ORDERED: Non-Formulary Item 1 EACH (Dolutegravir Sodium [Tivicay] 50 MG Tablet) PO SCH (09:00)
[2020-06-11] MEDS ORDERED: Iron Sucrose Complex 200 MG in Sodium Chloride 0.9% 100 ML IVPB SCH (09:00)
[2020-06-11] MEDS ORDERED: Iron, Sodium Ferric Gluconate 250 MG in Sodium Chloride 0.9% 100 ML IVPB SCH (09:45)
[2020-06-11] MEDS ORDERED: Apixaban 5 MG TAB PO SCH (13:00)
--- NOTE | 2020-06-11 14:20 | PDOC.HOSPP ---
- Subjective Encounter Date: 06/11/20 Encounter Time: 12:30 Subjective: Patient seen and examined for GI bleeding. No new hematochezia, melena or hematemesis overnight. Feeling slightly better than yesterday. Orthostatic vitals were negative. Denies any chest pain or shortness of breath. - Objective Vital Signs & Weight: Vital Signs (12 hours) Temp Pulse Resp BP BP BP BP 06/11/20 11:10 98.1 F 62 14 150/83 H 06/11/20 08:57 115/67 144/77 H 131/74 06/11/20 08:30 06/11/20 07:42 97.9 F 67 12 142/99 H Pulse Ox 06/11/20 11:10 99 06/11/20 08:57 06/11/20 08:30 95 06/11/20 07:42 95 Weight Weight 274 lb 0.4 oz I&O: 06/10/20 06/11/20 06/12/20 06:59 06:59 06:59 Intake Total 2760 1900 Output Total 250 Balance 2510 1900 Result Diagrams: 06/11/20 05:19 06/11/20 05:19 Additional Labs: Accuchecks 06/11/20 06/11/20 06/10/20 11:47 05:11 20:35 POC Glucose 99 126 H 126 H 06/10/20 16:04 POC Glucose 111 H Hospitalist ROS - Review of Systems Respiratory: denies: cough, dry, shortness of breath, hemoptysis, SOB with excertion, pleuritic pain, sputum, wheezing, other Cardiovascular: denies: chest pain, palpitations, orthopnea, paroxysmal noc. dyspnea, edema, light headedness, other - Medication Medications: Active Medications Generic Name Dose Route Start Last Admin Trade Name Freq PRN Reason Stop Dose Admin Apixaban 5 mg 06/11/20 13:00 06/11/20 13:44 Apixaban 5 Mg Tab PO 06/11/20 15:00 5 mg NOW HALEY Administration Atorvastatin Calcium 20 mg 06/10/20 21:00 06/10/20 20:28 Atorvastatin Calcium 20 Mg Tab PO 20 mg HS HALEY Administration Insulin Glargine 10 units/ 0.1 mls @ 0 mls/hr 06/10/20 21:00 09/19/20 20:34 Miscellaneous Medication SC 0.1 mls HS HALEY Administration Ferric Sodium Gluconate 120 mls @ 218.182 mls/hr 06/11/20 09:45 06/11/20 10:10 Complex 250 mg/ Sodium IVPB 06/11/20 15:00 120 mls Chloride NOW HALEY Administration Metoprolol Tartrate 12.5 mg 06/10/20 21:00 06/11/20 08:58 Metoprolol Tartrate 25 Mg Tab PO 12.5 mg BID HALEY Administration Pantoprazole Sodium 40 mg 06/11/20 09:00 06/11/20 08:58 Pantoprazole 40 Mg Tab PO 40 mg DAILY HALEY Administration Potassium Chloride 20 meq 06/10/20 21:00 06/11/20 08:58 Potassium Chloride 20 Meq Tab PO 20 meq BID HALEY Administration Spironolactone 25 mg 06/11/20 09:00 06/11/20 08:59 Spironolactone 25 Mg Tab PO 25 mg DAILY HALEY Administration Tamsulosin HCl 0.4 mg 06/08/20 21:00 06/11/20 08:58 Tamsulosin Hcl 0.4 Mg Cap PO 0.4 mg BID HALEY Administration - Exam General Appearance: NAD Neck: supple, no JVD Heart: no gallops, no rubs Respiratory: no wheezes, no ronchi Gastrointestinal: soft, non-tender, no guarding, no rigidity Extremities: no cyanosis Neurological: no new deficit Musculoskeletal: generalized weakness Psychiatric: A&O x 3 Hosp A/P (1) GI bleed Code(s): K92.2 - GASTROINTESTINAL HEMORRHAGE, UNSPECIFIED Qualifiers: GI bleed type/associated pathology: anorectal hemorrhage Qualified Code(s): K62.5 - Hemorrhage of anus and rectum (2) Acute blood loss anemia Code(s): D62 - ACUTE POSTHEMORRHAGIC ANEMIA (3) Diabetes mellitus type 2 in obese Code(s): E11.69 - TYPE 2 DIABETES MELLITUS WITH OTHER SPECIFIED COMPLICATION; E66.9 - OBESITY, UNSPECIFIED (4) Atrial fibrillation Code(s): I48.91 - UNSPECIFIED ATRIAL FIBRILLATION (5) Hypokalemia Code(s): E87.6 - HYPOKALEMIA (6) Hypomagnesemia Code(s): E83.42 - HYPOMAGNESEMIA (7) History of pulmonary embolism Code(s): Z86.711 - PERSONAL HISTORY OF PULMONARY EMBOLISM (8) Other issues per H&P - Plan 06/11 Patient's baseline hemoglobin is between 9-10. His hemoglobin yesterday was 8.5 and this morning is 7.9. He denies any new episodes of bleeding. We will start him on iron infusion for 2 doses. Recheck H&H in a.m. Resume torsemide. Recheck electrolytes in a.m. Continue potassium supplementation. Patient can probably be discharged tomorrow if no overnight events and if hemoglobin is stable. 06/10 Patient underwent EGD and colonoscopy as discussed above. Will change PPI to p.o. Potassium today is 2.8. Will replace potassium aggressively. Patient was found to have a rectal ulcer. I discussed with gastroenterology who recommended to restart anticoagulationI discussed with the patient who feels comfortable starting it back tomorrow.. Restart Spironolactone. Recheck labs in a.m. Possible discharge tomorrow morning if stable. Resume selected home medication. Restart Lantus at low-dose. IV iron infusion.
[2020-06-11] MEDS: Apixaban 5 MG TAB PO SCH (20:02)
[2020-06-11] MEDS: Atorvastatin Calcium 20 MG TAB PO SCH (20:02)
[2020-06-11] MEDS: Insulin Glargine 10 UNITS in Pre-Filled Syringe 1 EACH SC SCH (20:04)
[2020-06-12 05:58] LABS: Platelet Count 222 thou/uL (130-400)
[2020-06-12 06:16] LABS: Anion Gap 11 mmol/L (10-20); BUN (Urea Nitrogen) 6 mg/dL (8.4-25.7); Calc. Creatinine Clearance 148 mL/min (70-130); Calcium 8.3 mg/dL (7.8-10.44); Carbon Dioxide 28 mmol/L (23-31); Chloride 104 mmol/L (98-107); Estimated GFR-MDRD Greater than 90; Glucose 118 mg/dL (80-115); Potassium 3.7 mmol/L (3.5-5.1); Sodium 139 mmol/L (136-145)
[2020-06-12 07:36] VITALS: BP 133/73; TEMP 98.1
[2020-06-12] MEDS: Metoprolol Tartrate 25 MG TAB PO SCH (08:13)
[2020-06-12] MEDS: Apixaban 5 MG TAB PO SCH (08:14)
[2020-06-12] MEDS: Tamsulosin HCl 0.4 MG CAP PO SCH (08:14)
[2020-06-12] MEDS: Potassium Chloride 20 MEQ TAB PO SCH (08:14)
[2020-06-12] MEDS: Spironolactone 25 MG TAB PO SCH (08:14)
[2020-06-12] MEDS ORDERED: Torsemide 20 MG TAB PO SCH (09:00)
[2020-06-12] MEDS ORDERED: Iron, Sodium Ferric Gluconate 250 MG in Sodium Chloride 0.9% 100 ML IVPB SCH (09:00)
--- NOTE | 2020-06-12 15:34 | EKG ---
Test Reason : Blood Pressure : / mmHG Vent. Rate : 060 BPM Atrial Rate : 060 BPM P-R Int : 172 ms QRS Dur : 106 ms QT Int : 446 ms P-R-T Axes : 044 008 061 degrees QTc Int : 446 ms Sinus rhythm with sinus arrhythmia with occasional Premature ventricular complexes Cannot rule out Inferior infarct , age undetermined Abnormal ECG No previous ECGs available Confirmed by SANDRA WHELAN M.D. ([id number] on 06/12/2020 3:34:50 PM Referred By: GALI Confirmed By:SANDRA WHELAN M.D.
--- NOTE | 2020-06-13 00:45 | DIS ---
DATE OF ADMISSION: 06/08/2020 DATE OF DISCHARGE: 06/12/2020 PRIMARY CARE PROVIDER: Dr. Kovacs. DISCHARGE DIAGNOSES: 1. Gastrointestinal bleed. 2. Acute blood loss anemia. 3. Rectal ulcer. 4. Hypokalemia. CONDITION OF THE PATIENT ON THE DAY OF DISCHARGE: Stable. I assessed Mr. Mcfarland on the day of discharge. He denies any chest pain or shortness of breath. He denies any rectal bleeding. Vital signs are stable. S1 and S2 are heard, regular. Lungs are clear to auscultation bilaterally. DISCHARGE MEDICATIONS: He is being started on Protonix 40 mg daily and Colace 100 mg 2 times a day. Otherwise, no change was made to his pre-admission home medications, including apixaban. CONSULTATIONS DURING THIS HOSPITALIZATION: Gastroenterology, Dr. Doty. HOSPITAL COURSE: Mr. Mcfarland is a pleasant 60-year-old gentleman, who was admitted to [facility] on June 08, 2020, for GI bleed as well as acute blood loss anemia. He was seen by Gastroenterology Service. Apixaban was temporally discontinued, subsequently restarted following negative scope studies. On June 10, he underwent EGD with biopsy. He is advised to follow up with primary care provider for pathology report. That same day, he also underwent colonoscopy. He was found to have a rectal ulcer measuring approximately 1.5 cm without any active bleeding. There were a couple of areas of erythematous villalobos indicative of recent bleeding. Otherwise, colonoscopy was normal. Patient continued to improve. Apixaban was resumed. Hemoglobin remained stable. He is being discharged home in a stable condition. On the day of discharge, he has sodium of 139, potassium 3.7, creatinine 0.91; hemoglobin 8.0 and hematocrit 25.8. ACTIVITY: No restrictions. DIET: Heart-healthy, low-sodium, and diabetic. FOLLOWUP: Post acute care followup: With primary care provider in 3 days and with Gastroenterology Service in 2 to 3 weeks. DISCHARGE DESTINATION: Home. TIME SPENT: Total amount of time spent coordinating this discharge: Thirty-three minutes. Job ID: [id number]
--- NOTE | 2020-06-14 11:52 | PQF ---
CLINICAL DOCUMENTATION CLARIFICATION FORM: Dear : Arnel Grimes MD Date / Time: 06/14/2020 Please exercise your independent, professional judgment in responding to the clarification form. Clinical indicators are provided on the bottom of this form for your review Please check appropriate box(es): [ ] GI bleed due to Gastritis [ x ] GI bleed due to Rectal ulcer [ ] Other diagnosis (Please specify if any) [ ] Unable to determine Physician Signature: Date/Time: For continuity of documentation, please document condition throughout progress notes and discharge summary. Thank You. To be completed by CDI/Coding staff for physician review: Present Clinical Indicators - Signs / Symptoms / Labs Results and Location in Medical Record [x ] GI bleed, H&P on 06/08 [ x ] Acute blood loss anemia H&P on 06/08 [ x ] Colonoscopy showed rectal ulcer-non bleeding Hospital progress on 06/10 [ x ] Underwent EGD that showed mild gastritis and hiatal hernia Hospital progress on 06/10 [ ] Present Risk Factors Results and Location in Medical Record [ x ] Aged person 60 yrs H&P on 06/08 [ ] [ ] [ ] Present Treatments Results and Location in Medical Record [ x] Protonix 40 mg Po Medication on 06/11, 06/12 [ x ] Protonix 40mg IV Medication from 06/08 to 06/10 [ ] [ ] CDS/Front Office Specialist Signature: DEIRDRE Phone #: Date/Time: 06/14/2020 This is a permanent part of the Medical Record [facility]
== END 2020-06-12 14:38 | disposition home or self-care (01) | DRG 394 ==
LOC: ERS 09:53 → T4-B 15:13 → OBSVTOIN 15:29
PROVIDERS: ADMIT Internal Medicine; ATTEND Internal Medicine
PROC: 0DB68ZX Excision of Stomach, Via Natural or Artificial Opening Endoscopic, Diagnostic (ICD-10-PCS; principal; 2020-06-10)
PROC: 0DJD8ZZ Inspection of Lower Intestinal Tract, Via Natural or Artificial Opening Endoscopic (ICD-10-PCS; 2020-06-10)
DX: K62.6 Ulcer of anus and rectum (principal); D62 Acute posthemorrhagic anemia; K92.2 Gastrointestinal hemorrhage, unspecified; I48.91 Unspecified atrial fibrillation; Z21 Asymptomatic human immunodeficiency virus [HIV] infection status; E78.5 Hyperlipidemia, unspecified; N40.0 Benign prostatic hyperplasia without lower urinary tract symptoms; I50.9 Heart failure, unspecified; I11.0 Hypertensive heart disease with heart failure; E83.42 Hypomagnesemia; E87.6 Hypokalemia; Z79.01 Long term (current) use of anticoagulants; Z79.899 Other long term (current) drug therapy; Z86.711 Personal history of pulmonary embolism; Z85.46 Personal history of malignant neoplasm of prostate; Z92.3 Personal history of irradiation; Z98.890 Other specified postprocedural states; Z87.891 Personal history of nicotine dependence; Z88.0 Allergy status to penicillin; K44.9 Diaphragmatic hernia without obstruction or gangrene; K29.70 Gastritis, unspecified, without bleeding; E11.69 Type 2 diabetes mellitus with other specified complication; E66.9 Obesity, unspecified; Z20.828 Contact with and (suspected) exposure to other viral communicable diseases; Z68.37 Body mass index [BMI] 37.0-37.9, adult
CPT/HCPCS: 36415; 36416; 80048; 80053; 81001; 82274; 82607; 82728; 82746; 83540; 83550; 83735; 85014; 85018; 85025; 85046; 85049; 85610; 85730; 86850; 86900; 86901; 87635; 88305; 88312; 93005; 93010; 96365; 96366; 96367; 96375; 96376; 99284; C9113; G0378; J1815; J2704; J2916; J3475; J3480; J3490; J7050; U0003

== ENCOUNTER 2020-06-29 08:25 | Emergency (ER) | payer BC ==
[2020-06-29 08:53] LABS: #Eosinphils 0.1 thou/uL (0.0-0.7); #Lymphocytes 2.5 thou/uL (1.20-3.40); #Monocytes 0.7 thou/uL (0.11-0.59); #Neutrophils 3.8 thou/uL (1.40-6.50); %Basophils 0.3 % (0.0-1.0); %Lymphocytes 35.1 % (21.0-51.0); %Monocytes 9.4 % (0.0-10.0); %Neutrophils 53.2 % (42.0-75.0); Mean Corpuscular HGB CONC 31.9 g/dL (32.0-36.0); Mean Corpuscular Volume 94.3 fL (78.0-98.0); Mean Platelet Volume 6.9 fL (7.4-10.4); Platelet Count 257 thou/uL (130-400); RBC Distribution Width 16.4 % (11.5-14.5); Red Blood Cell (RBC) Count 3.65 mill/uL (4.70-6.10); White Blood Cell (WBC) Count 7.1 thou/uL (4.8-10.8)
[2020-06-29 08:58] LABS: INR-International Normal Ratio 1.1; PTT 30.1 sec (22.9-36.1); Prothrombin Time 14.5 sec (12.0-14.7)
[2020-06-29 09:15] LABS: ALT (SGPT) 12 U/L (8-55); AST (SGOT) 18 U/L (5-34); Albumin 4.2 g/dL (3.4-4.8); Alkaline Phosphatase 85 U/L (40-110); Anion Gap 15 mmol/L (10-20); BUN (Urea Nitrogen) 25 mg/dL (8.4-25.7); Bilirubin, Total 0.4 mg/dL (0.2-1.2); Calc. Creatinine Clearance 0 mL/min (70-130); Calcium 9.3 mg/dL (7.8-10.44); Carbon Dioxide 30 mmol/L (23-31); Chloride 95 mmol/L (98-107); Estimated GFR-MDRD 61; Globulin 3.4 g/dL (2.4-3.5); Glucose 111 mg/dL (80-115); Lipase 29 U/L (8-78); Protein, Total 7.6 g/dL (5.8-8.1); Sodium 137 mmol/L (136-145)
[2020-06-29 09:19] LABS: Potassium 2.9 mmol/L (3.5-5.1)
== END 2020-06-29 13:10 | disposition home or self-care (01) ==
LOC: ERS 08:25
DX: K92.2 Gastrointestinal hemorrhage, unspecified (principal); E11.9 Type 2 diabetes mellitus without complications; I10 Essential (primary) hypertension; Z86.711 Personal history of pulmonary embolism; Z87.891 Personal history of nicotine dependence; Z79.4 Long term (current) use of insulin; Z79.01 Long term (current) use of anticoagulants; Z79.899 Other long term (current) drug therapy
CPT/HCPCS: 36415; 80053; 82274; 83690; 85025; 85610; 85730; 86850; 86900; 86901; 99284

== ENCOUNTER 2020-07-10 12:19 | Outpatient (CLI) | payer BC ==
--- NOTE | 2020-07-10 12:43 | RAD ---
EXAM: Single view of the abdomen HISTORY: Renal calculi. Chronic kidney disease COMPARISON: None FINDINGS: Single view of the abdomen shows a nonspecific, nonobstructive bowel gas pattern. No suspi cious calcifications are seen. Degenerative changes are seen in the spine. Vascular calcifications are seen. IMPRESSION: Unremarkable exam
--- NOTE | 2020-07-10 13:17 | ULT ---
Renal ultrasound: 07/10/2020 COMPARISON:03/11/2019 HISTORY:Chronic kidney disease TECHNIQUE: Multiplanar grayscale sonographic imaging of thekidneys and urinary bladder FINDINGS:Body habitus limits detailed assessment of both kidneys. The right kidney measures approxima tely 11.0 x 4.8 x 5.1 cm and demonstrates no evidence for mass or hydronephrosis. Left kidney measures 11.0 x 5.0 x 5.0 cm and demonstrates no hydronephrosis or discrete mass lesion. Urinary blad ginny grossly unremarkable. IMPRESSION:No hydronephrosis.
== END 2020-07-10 12:20 | disposition home or self-care (01) ==
LOC: BICULT 12:19
PROVIDERS: ATTEND Urology
DX: N18.2 Chronic kidney disease, stage 2 (mild) (principal); C61 Malignant neoplasm of prostate; N20.0 Calculus of kidney
CPT/HCPCS: 74018; 76770

== ENCOUNTER 2021-07-17 12:29 | Outpatient (CLI) | payer BC | END 2021-07-17 12:30 | disposition home or self-care (01) | LOC: BICULT 12:29 | PROVIDERS: ATTEND Urology | DX: N20.0 Calculus of kidney (principal) | CPT/HCPCS: 74018; 76770 ==

== ENCOUNTER 2022-07-26 15:05 | Outpatient (CLI) | payer BC | END 2022-07-26 15:06 | disposition home or self-care (01) | LOC: BICULT 15:05 | PROVIDERS: ATTEND Urology | DX: N20.0 Calculus of kidney (principal); N28.1 Cyst of kidney, acquired; N32.89 Other specified disorders of bladder | CPT/HCPCS: 74018; 76770 ==

== ENCOUNTER 2022-11-07 07:49 | Inpatient (IN) | payer BC ==
[2022-11-07 08:37] LABS: #Eosinphils 0.1 thou/uL (0.0-0.7); #Lymphocytes 1.4 thou/uL (1.20-3.40); #Monocytes 0.6 thou/uL (0.11-0.59); %Basophils 0.3 % (0.0-1.0); %Eosinophils 1.1 % (0.0-10.0); %Lymphocytes 22.6 % (21.0-51.0); %Monocytes 10.1 % (0.0-10.0); Hemoglobin 11.5 g/dL (14.0-18.0); Mean Corpuscular HGB CONC 32.2 g/dL (32.0-36.0); Mean Corpuscular Hemoglobin 31.1 pg (27.0-31.0); Mean Corpuscular Volume 96.4 fl (78.0-98.0); Mean Platelet Volume 7.1 fL (7.4-10.4); Platelet Count 218 10x3/uL (130-400); RBC Distribution Width 13.5 % (11.5-14.5); Red Blood Cell (RBC) Count 3.69 mill/uL (4.70-6.10)
[2022-11-07 08:46] LABS: ALT (SGPT) 17 U/L (8-55); AST (SGOT) 28 U/L (5-34); Albumin 3.8 g/dL (3.4-4.8); Alkaline Phosphatase 70 U/L (40-110); Anion Gap 12 mmol/L (10-20); BUN (Urea Nitrogen) 9 mg/dL (8.4-25.7); Bilirubin, Total 0.7 mg/dL (0.2-1.2); Calc. Creatinine Clearance 0 mL/min (70-130); Calcium 9.3 mg/dL (7.8-10.44); Carbon Dioxide 26 mmol/L (23-31); Chloride 103 mmol/L (98-107); Estimated GFR 96; Globulin 3.7 g/dL (2.4-3.5); Glucose 101 mg/dL (80-115); Potassium 4.2 mmol/L (3.5-5.1); Protein, Total 7.5 g/dL (5.8-8.1); Sodium 137 mmol/L (136-145)
[2022-11-07 11:28] LABS: Specific Gravity, Urine 1.015 (1.005-1.030); pH, Urine 6.5 (5.0-9.0)
[2022-11-07 11:33] LABS: Bilirubin Unable to Interpret (Negative); Blood, Urine Unable to Interpret (Negative); Clarity Cloudy (Clear); Glucose, Urine (Dipstick) Unable to Interpret mg/dL (Negative); Ketone, Urine Unable to Interpret mg/dL (Negative); Leukocyte Unable to Interpret (Negative); Nitrite Unable to Interpret (Negative); Protein, Urine (Dipstick) Unable to Interpret mg/dL (Neg-Trace); Urobilinogen UNABLE TO INTERPRET mg/dL (Less than 2)
[2022-11-07 11:34] LABS: RBC/HPF Greater than 50 HPF (0-3); WBC/HPF 0-3 HPF (0-3)
[2022-11-07 11:35] LABS: Bacteria/HPF None Seen HPF (None Seen)
[2022-11-07] MEDS ORDERED: Iopamidol-370 76% 500 ML 1 ML ONE (13:09)
[2022-11-07] MEDS ORDERED: Phenazopyridine HCl 95 MG TAB PO PRN (13:12)
[2022-11-07] MEDS ORDERED: diphenhydrAMINE 50 MG/ML VIAL IVP PRN (13:12)
[2022-11-07] MEDS ORDERED: HYDROcodone/Acetaminophen 5/325 mg Tablet PO PRN ×2 (13:12)
[2022-11-07] MEDS ORDERED: Ondansetron PF 4 MG/2 ML Vial IVP PRN (13:53)
[2022-11-07] MEDS ORDERED: Dextrose 5% in Water 1,000 ML IV PRN (13:55)
[2022-11-07] MEDS ORDERED: HumaLOG 300 UNITS/3 ML VIAL SC PRN (13:55)
[2022-11-07] MEDS ORDERED: Dextrose 50% Abboject 50 ML SYRINGE SLOW IVP PRN (13:55)
[2022-11-07] MEDS ORDERED: cloNIDine 0.1 MG TAB PO PRN (14:04)
[2022-11-07 15:30] LABS: INR-International Normal Ratio 1.1; PTT 32.1 sec (22.9-36.1); Prothrombin Time 14.3 sec (12.0-14.7)
[2022-11-07] MEDS ORDERED: Metoprolol Tartrate 25 MG TAB PO SCH (18:45)
[2022-11-07] MEDS: Hyoscyamine SL 0.125 MG TAB SL SCH (19:00)
[2022-11-07] MEDS: Sodium Chloride 0.9% 1,000 ML IV SCH (20:18)
[2022-11-07] MEDS: cefTRIAXone\\ROCEPHIN 1 GM in Sodium Chloride 0.9% 100 ML IVPB SCH (20:18)
[2022-11-07] MEDS: Famotidine/PF 20 mg/2ml Vial SLOW IVP SCH (20:19)
[2022-11-07] MEDS: Docusate 100 MG CAP PO SCH (20:19)
[2022-11-08] MEDS: Sodium Chloride 0.9% 1,000 ML IV SCH ×3 (01:45→21:13)
[2022-11-08] MEDS: Hyoscyamine SL 0.125 MG TAB SL SCH ×4 (05:14→16:56)
[2022-11-08 05:18] LABS: #Eosinphils 0.1 thou/uL (0.0-0.7); #Lymphocytes 1.4 thou/uL (1.20-3.40); #Monocytes 0.7 thou/uL (0.11-0.59); #Neutrophils 3.2 thou/uL (1.40-6.50); %Basophils 0.1 % (0.0-1.0); %Eosinophils 1.3 % (0.0-10.0); %Lymphocytes 26.3 % (21.0-51.0); %Monocytes 13.4 % (0.0-10.0); %Neutrophils 58.9 % (42.0-75.0); Hemoglobin 11.1 g/dL (14.0-18.0); Mean Corpuscular HGB CONC 31.3 g/dL (32.0-36.0); Mean Corpuscular Hemoglobin 30.1 pg (27.0-31.0); Mean Corpuscular Volume 96.3 fl (78.0-98.0); Platelet Count 210 10x3/uL (130-400); RBC Distribution Width 13.6 % (11.5-14.5); White Blood Cell (WBC) Count 5.4 10x3/uL (4.8-10.8)
[2022-11-08 06:02] LABS: Anion Gap 12 mmol/L (10-20); BUN (Urea Nitrogen) 9 mg/dL (8.4-25.7); Calc. Creatinine Clearance 137 mL/min (70-130); Calcium 8.8 mg/dL (7.8-10.44); Carbon Dioxide 25 mmol/L (23-31); Chloride 104 mmol/L (98-107); Estimated GFR 99; Glucose 84 mg/dL (80-115); Magnesium 1.8 mg/dL (1.6-2.6); Potassium 4.1 mmol/L (3.5-5.1); Sodium 137 mmol/L (136-145)
[2022-11-08] MEDS: Famotidine/PF 20 mg/2ml Vial SLOW IVP SCH ×2 (08:19→21:16)
[2022-11-08] MEDS: Metoprolol Tartrate 25 MG TAB PO SCH ×2 (08:19→21:07)
[2022-11-08] MEDS: Tamsulosin HCl 0.4 MG CAP PO SCH (08:19)
[2022-11-08] MEDS: Docusate 100 MG CAP PO SCH ×2 (08:19→21:16)
[2022-11-08] MEDS: Bumetanide 1 MG TAB PO SCH (11:49)
[2022-11-08] MEDS: cefTRIAXone\\ROCEPHIN 1 GM in Sodium Chloride 0.9% 100 ML IVPB SCH (15:14)
[2022-11-08] MEDS ORDERED: Tamsulosin HCl 0.4 MG CAP PO SCH (21:00)
[2022-11-08] MEDS ORDERED: Non-Formulary Item 1 EACH (Sacubitril/Valsartan [Entresto 97 Mg-103 Mg Tablet] 1 EACH Tab PO SCH (21:00)
[2022-11-08] MEDS: Atorvastatin Calcium 20 MG TAB PO SCH (21:07)
[2022-11-08] MEDS: Sacubitril 49 MG/Valsartan 51 MG TABLET PO SCH (21:08)
[2022-11-09] MEDS: Hyoscyamine SL 0.125 MG TAB SL SCH ×4 (06:00→16:52)
[2022-11-09] MEDS: Sacubitril 49 MG/Valsartan 51 MG TABLET PO SCH ×2 (08:08→22:52)
[2022-11-09] MEDS: Empagliflozin 10 MG TAB PO SCH (08:09)
[2022-11-09] MEDS: Tamsulosin HCl 0.4 MG CAP PO SCH (08:09)
[2022-11-09] MEDS: Bumetanide 1 MG TAB PO SCH ×2 (08:09→11:16)
[2022-11-09] MEDS: Dronedarone HCl 400 MG TAB PO SCH ×2 (08:10→16:52)
[2022-11-09] MEDS: Spironolactone 25 MG TAB PO SCH (08:10)
[2022-11-09] MEDS: Metoprolol Tartrate 25 MG TAB PO SCH ×2 (08:10→22:50)
[2022-11-09] MEDS: Docusate 100 MG CAP PO SCH ×2 (08:11→22:51)
[2022-11-09] MEDS: Famotidine/PF 20 mg/2ml Vial SLOW IVP SCH ×2 (08:11→22:51)
[2022-11-09] MEDS ORDERED: Bumetanide 1 MG TAB PO SCH (09:00)
[2022-11-09] MEDS ORDERED: Acetaminophen 325 MG TAB PO PRN (11:34)
[2022-11-09] MEDS: cefTRIAXone\\ROCEPHIN 1 GM in Sodium Chloride 0.9% 100 ML IVPB SCH (14:17)
[2022-11-09] MEDS: Sodium Chloride 0.9% 1,000 ML IV SCH (15:46)
[2022-11-09] MEDS: Atorvastatin Calcium 20 MG TAB PO SCH (22:50)
[2022-11-10] MEDS: Hyoscyamine SL 0.125 MG TAB SL SCH ×4 (00:36→17:42)
[2022-11-10 04:30] VITALS: BMI 31.4
[2022-11-10] MEDS: Sodium Chloride 0.9% 1,000 ML IV SCH ×2 (06:27→14:50)
[2022-11-10 08:01] LABS: Anion Gap 12 mmol/L (10-20); BUN (Urea Nitrogen) 10 mg/dL (8.4-25.7); Calc. Creatinine Clearance 133 mL/min (70-130); Calcium 8.2 mg/dL (7.8-10.44); Carbon Dioxide 23 mmol/L (23-31); Chloride 105 mmol/L (98-107); Estimated GFR 98; Glucose 73 mg/dL (80-115); Potassium 3.4 mmol/L (3.5-5.1); Sodium 137 mmol/L (136-145)
[2022-11-10] MEDS: Dronedarone HCl 400 MG TAB PO SCH ×2 (09:04→17:42)
[2022-11-10] MEDS: Tamsulosin HCl 0.4 MG CAP PO SCH (09:04)
[2022-11-10] MEDS: Famotidine/PF 20 mg/2ml Vial SLOW IVP SCH ×2 (09:04→22:46)
[2022-11-10] MEDS: Sacubitril 49 MG/Valsartan 51 MG TABLET PO SCH ×2 (09:04→22:46)
[2022-11-10] MEDS: Spironolactone 25 MG TAB PO SCH (09:04)
[2022-11-10] MEDS: Metoprolol Tartrate 25 MG TAB PO SCH ×2 (09:05→22:46)
[2022-11-10] MEDS: Docusate 100 MG CAP PO SCH ×2 (09:08→22:47)
[2022-11-10] MEDS: Bumetanide 1 MG TAB PO SCH ×2 (10:36→13:08)
[2022-11-10] MEDS: cefTRIAXone\\ROCEPHIN 1 GM in Sodium Chloride 0.9% 100 ML IVPB SCH (14:50)
[2022-11-10] MEDS: Atorvastatin Calcium 20 MG TAB PO SCH (22:46)
[2022-11-11] MEDS: Hyoscyamine SL 0.125 MG TAB SL SCH ×5 (01:20→23:50)
[2022-11-11 06:45] LABS: #Eosinphils 0.2 thou/uL (0.0-0.7); #Lymphocytes 1.7 thou/uL (1.20-3.40); #Monocytes 0.7 thou/uL (0.11-0.59); #Neutrophils 2.5 thou/uL (1.40-6.50); %Basophils 0.1 % (0.0-1.0); %Eosinophils 3.4 % (0.0-10.0); %Lymphocytes 32.9 % (21.0-51.0); %Monocytes 14.8 % (0.0-10.0); %Neutrophils 48.8 % (42.0-75.0); Mean Corpuscular HGB CONC 32.6 g/dL (32.0-36.0); Mean Corpuscular Hemoglobin 31.3 pg (27.0-31.0); Mean Corpuscular Volume 95.9 fl (78.0-98.0); Mean Platelet Volume 7.1 fL (7.4-10.4); Platelet Count 195 10x3/uL (130-400); RBC Distribution Width 13.3 % (11.5-14.5); Red Blood Cell (RBC) Count 3.52 mill/uL (4.70-6.10)
[2022-11-11 06:59] LABS: BUN (Urea Nitrogen) 10 mg/dL (8.4-25.7); Calc. Creatinine Clearance 118 mL/min (70-130); Calcium 8.4 mg/dL (7.8-10.44); Carbon Dioxide 28 mmol/L (23-31); Estimated GFR 94; Glucose 81 mg/dL (80-115); Potassium 3.4 mmol/L (3.5-5.1); Sodium 135 mmol/L (136-145)
[2022-11-11 07:32] LABS: Chloride 102 mmol/L (98-107)
[2022-11-11 07:35] LABS: Anion Gap 13 mmol/L (10-20)
[2022-11-11] MEDS: Sacubitril 49 MG/Valsartan 51 MG TABLET PO SCH ×2 (08:57→19:54)
[2022-11-11] MEDS: Bumetanide 1 MG TAB PO SCH ×2 (08:57→13:58)
[2022-11-11] MEDS: Sodium Chloride 0.9% 1,000 ML IV SCH ×2 (08:57→17:53)
[2022-11-11] MEDS: Empagliflozin 10 MG TAB PO SCH (08:58)
[2022-11-11] MEDS: Tamsulosin HCl 0.4 MG CAP PO SCH (08:58)
[2022-11-11] MEDS: Docusate 100 MG CAP PO SCH ×2 (08:58→19:55)
[2022-11-11] MEDS: Famotidine/PF 20 mg/2ml Vial SLOW IVP SCH ×2 (08:58→19:54)
[2022-11-11] MEDS: Dronedarone HCl 400 MG TAB PO SCH ×2 (08:58→17:53)
[2022-11-11] MEDS: Metoprolol Tartrate 25 MG TAB PO SCH ×2 (08:58→19:54)
[2022-11-11] MEDS: Spironolactone 25 MG TAB PO SCH (08:58)
[2022-11-11] MEDS: cefTRIAXone\\ROCEPHIN 1 GM in Sodium Chloride 0.9% 100 ML IVPB SCH (14:00)
[2022-11-11] MEDS: Atorvastatin Calcium 20 MG TAB PO SCH (19:55)
[2022-11-12] MEDS: Sodium Chloride 0.9% 1,000 ML IV SCH ×2 (04:48→16:27)
[2022-11-12] MEDS: Hyoscyamine SL 0.125 MG TAB SL SCH ×4 (05:29→22:53)
[2022-11-12 07:32] LABS: #Eosinphils 0.1 thou/uL (0.0-0.7); #Lymphocytes 1.5 thou/uL (1.20-3.40); #Monocytes 0.7 thou/uL (0.11-0.59); #Neutrophils 3.3 thou/uL (1.40-6.50); %Basophils 0.2 % (0.0-1.0); %Eosinophils 2.4 % (0.0-10.0); %Lymphocytes 26.7 % (21.0-51.0); %Monocytes 11.8 % (0.0-10.0); %Neutrophils 58.9 % (42.0-75.0); Hemoglobin 10.5 g/dL (14.0-18.0); Mean Corpuscular HGB CONC 32.5 g/dL (32.0-36.0); Mean Corpuscular Hemoglobin 30.8 pg (27.0-31.0); Mean Corpuscular Volume 94.7 fl (78.0-98.0); Mean Platelet Volume 6.8 fL (7.4-10.4); Platelet Count 206 10x3/uL (130-400); RBC Distribution Width 13.2 % (11.5-14.5); Red Blood Cell (RBC) Count 3.41 mill/uL (4.70-6.10); White Blood Cell (WBC) Count 5.6 10x3/uL (4.8-10.8)
[2022-11-12 07:52] LABS: Anion Gap 11 mmol/L (10-20); BUN (Urea Nitrogen) 9 mg/dL (8.4-25.7); Calc. Creatinine Clearance 121 mL/min (70-130); Calcium 8.1 mg/dL (7.8-10.44); Carbon Dioxide 26 mmol/L (23-31); Chloride 103 mmol/L (98-107); Estimated GFR 96; Glucose 88 mg/dL (80-115); Potassium 3.3 mmol/L (3.5-5.1); Sodium 137 mmol/L (136-145)
[2022-11-12] MEDS: Tamsulosin HCl 0.4 MG CAP PO SCH (08:59)
[2022-11-12] MEDS: Dronedarone HCl 400 MG TAB PO SCH ×2 (08:59→16:27)
[2022-11-12] MEDS: Metoprolol Tartrate 25 MG TAB PO SCH ×2 (08:59→20:05)
[2022-11-12] MEDS: Spironolactone 25 MG TAB PO SCH (08:59)
[2022-11-12] MEDS: Bumetanide 1 MG TAB PO SCH ×2 (08:59→11:03)
[2022-11-12] MEDS: Docusate 100 MG CAP PO SCH ×2 (09:00→20:06)
[2022-11-12] MEDS: Empagliflozin 10 MG TAB PO SCH (09:00)
[2022-11-12] MEDS: Sacubitril 49 MG/Valsartan 51 MG TABLET PO SCH ×2 (09:00→20:06)
[2022-11-12] MEDS: Famotidine/PF 20 mg/2ml Vial SLOW IVP SCH ×2 (09:00→20:06)
[2022-11-12] MEDS ORDERED: Potassium Chloride 20 MEQ TAB PO SCH (10:15)
[2022-11-12] MEDS: cefTRIAXone\\ROCEPHIN 1 GM in Sodium Chloride 0.9% 100 ML IVPB SCH (14:44)
[2022-11-12] MEDS: Atorvastatin Calcium 20 MG TAB PO SCH (20:06)
[2022-11-13] MEDS: Metoprolol Tartrate 25 MG TAB PO SCH ×2 (05:31→20:56)
[2022-11-13] MEDS: Hyoscyamine SL 0.125 MG TAB SL SCH ×3 (05:31→17:20)
[2022-11-13] MEDS: Sodium Chloride 0.9% 1,000 ML IV SCH ×2 (05:39→17:21)
[2022-11-13 07:42] LABS: #Eosinphils 0.1 thou/uL (0.0-0.7); #Lymphocytes 1.1 thou/uL (1.20-3.40); #Monocytes 0.7 thou/uL (0.11-0.59); #Neutrophils 3.2 thou/uL (1.40-6.50); %Basophils 0.6 % (0.0-1.0); %Eosinophils 2.6 % (0.0-10.0); %Lymphocytes 20.6 % (21.0-51.0); %Monocytes 13.6 % (0.0-10.0); %Neutrophils 62.6 % (42.0-75.0); Hemoglobin 10.5 g/dL (14.0-18.0); Mean Corpuscular HGB CONC 32.1 g/dL (32.0-36.0); Mean Corpuscular Hemoglobin 30.7 pg (27.0-31.0); Mean Corpuscular Volume 95.5 fl (78.0-98.0); Mean Platelet Volume 7.2 fL (7.4-10.4); Platelet Count 202 10x3/uL (130-400); RBC Distribution Width 13.2 % (11.5-14.5); Red Blood Cell (RBC) Count 3.43 mill/uL (4.70-6.10); White Blood Cell (WBC) Count 5.1 10x3/uL (4.8-10.8)
[2022-11-13 08:05] LABS: Anion Gap 13 mmol/L (10-20); BUN (Urea Nitrogen) 10 mg/dL (8.4-25.7); Calc. Creatinine Clearance 124 mL/min (70-130); Calcium 8.6 mg/dL (7.8-10.44); Carbon Dioxide 26 mmol/L (23-31); Chloride 103 mmol/L (98-107); Estimated GFR 96; Glucose 97 mg/dL (80-115); Potassium 3.5 mmol/L (3.5-5.1); Sodium 138 mmol/L (136-145)
[2022-11-13] MEDS: Sacubitril 49 MG/Valsartan 51 MG TABLET PO SCH ×2 (08:49→20:57)
[2022-11-13] MEDS: Docusate 100 MG CAP PO SCH ×2 (08:49→20:56)
[2022-11-13] MEDS: Dronedarone HCl 400 MG TAB PO SCH ×2 (08:49→17:20)
[2022-11-13] MEDS: Famotidine/PF 20 mg/2ml Vial SLOW IVP SCH ×2 (08:49→20:56)
[2022-11-13] MEDS: Bumetanide 1 MG TAB PO SCH ×2 (08:49→11:40)
[2022-11-13] MEDS: Empagliflozin 10 MG TAB PO SCH (08:49)
[2022-11-13] MEDS: Spironolactone 25 MG TAB PO SCH (08:50)
[2022-11-13] MEDS: Tamsulosin HCl 0.4 MG CAP PO SCH (08:50)
[2022-11-13] MEDS ORDERED: Fentanyl 100 MCG/2 ML VIAL ONE (10:21)
[2022-11-13] MEDS ORDERED: PHENYLEPHRINE-NS 100 MCG/ML 10 ML SYRINGE ONE (10:30)
[2022-11-13] MEDS ORDERED: Lidocaine 1% PF 5 ML VIAL ONE (10:30)
[2022-11-13] MEDS ORDERED: NEOSTIGMINE 3 MG/3 ML SYR 3 MG/3 ML SYRINGE ONE (10:30)
[2022-11-13] MEDS ORDERED: Rocuronium Bromide 10 MG/ML (10ML VIAL) ONE (10:30)
[2022-11-13] MEDS ORDERED: ePHEDrine 50 MG/ML VIAL ONE (10:30)
[2022-11-13] MEDS ORDERED: Dexamethasone 20 MG/5 ML VIAL ONE (10:30)
[2022-11-13] MEDS ORDERED: PROPOFOL 200 MG/20 ML VIAL ONE (10:30)
[2022-11-13] MEDS ORDERED: Glycopyrrolate 0.2 MG/ML 5 ML SYRINGE ONE (10:30)
[2022-11-13] MEDS ORDERED: Ondansetron PF 4 MG/2 ML Vial ONE (10:30)
[2022-11-13] MEDS ORDERED: Sodium Chloride 0.9% 100 ML ONE (10:38)
[2022-11-13] MEDS ORDERED: cefTRIAXone\\ROCEPHIN 2 GM VIAL ONE (10:38)
[2022-11-13] MEDS ORDERED: Ondansetron HCl/PF 4 MG/2 ML Vial IVP PRN (11:50)
[2022-11-13] MEDS: cefTRIAXone\\ROCEPHIN 1 GM in Sodium Chloride 0.9% 100 ML IVPB SCH (15:27)
[2022-11-13] MEDS: Atorvastatin Calcium 20 MG TAB PO SCH (20:56)
[2022-11-14] MEDS: Hyoscyamine SL 0.125 MG TAB SL SCH ×2 (00:09→05:19)
[2022-11-14] MEDS: Spironolactone 25 MG TAB PO SCH (08:56)
[2022-11-14] MEDS: Tamsulosin HCl 0.4 MG CAP PO SCH (08:56)
[2022-11-14] MEDS: Dronedarone HCl 400 MG TAB PO SCH ×2 (08:56→15:32)
[2022-11-14] MEDS: Bumetanide 1 MG TAB PO SCH ×2 (08:57→12:04)
[2022-11-14] MEDS: Sacubitril 49 MG/Valsartan 51 MG TABLET PO SCH (08:57)
[2022-11-14] MEDS: Docusate 100 MG CAP PO SCH (08:57)
[2022-11-14] MEDS: Famotidine/PF 20 mg/2ml Vial SLOW IVP SCH (08:57)
[2022-11-14] MEDS: Metoprolol Tartrate 25 MG TAB PO SCH ×2 (08:57→09:04)
[2022-11-14] MEDS: Sodium Chloride 0.9% 1,000 ML IV SCH (08:58)
[2022-11-14] MEDS: Empagliflozin 10 MG TAB PO SCH (09:01)
[2022-11-14 09:23] VITALS: TEMP 98
[2022-11-14 14:29] VITALS: BP 95/54
[2022-11-14] MEDS: cefTRIAXone\\ROCEPHIN 1 GM in Sodium Chloride 0.9% 100 ML IVPB SCH (15:32)
== END 2022-11-14 16:44 | disposition home or self-care (01) | DRG 666 ==
LOC: ERS 07:49 → 2NO 17:44 → OBSVTOIN 11-08 08:37 → T4-A 11-09 21:17
PROVIDERS: ADMIT Family Medicine; ATTEND Hospitalist
PROC: 0V508ZZ Destruction of Prostate, Via Natural or Artificial Opening Endoscopic (ICD-10-PCS; principal; 2022-11-13)
PROC: 0T9B70Z Drainage of Bladder with Drainage Device, Via Natural or Artificial Opening (ICD-10-PCS; 2022-11-13)
DX: N30.41 Irradiation cystitis with hematuria (principal); B20 Human immunodeficiency virus [HIV] disease; D62 Acute posthemorrhagic anemia; N40.1 Benign prostatic hyperplasia with lower urinary tract symptoms; R33.8 Other retention of urine; I48.0 Paroxysmal atrial fibrillation; Z20.822 Contact with and (suspected) exposure to COVID-19; I10 Essential (primary) hypertension; C61 Malignant neoplasm of prostate; E11.9 Type 2 diabetes mellitus without complications; Z79.4 Long term (current) use of insulin; Z79.899 Other long term (current) drug therapy; Z79.82 Long term (current) use of aspirin
CPT/HCPCS: 36415; 36416; 51702; 74177; 80048; 80053; 81003; 81015; 82274; 83735; 85025; 85610; 85730; 86850; 86900; 86901; 87086; 93005; 93010; 96374; G0378; J0696; J1100; J2405; J2704; J3010; J3490; J7050; Q9967; S0028; U0003; U0005

== ENCOUNTER 2022-11-28 15:41 | Inpatient (IN) | payer BC ==
[2022-11-28 16:54] LABS: #Basophils 0.1 thou/uL (0.0-0.2); #Monocytes 0.6 thou/uL (0.11-0.59); #Neutrophils 4.7 thou/uL (1.40-6.50); %Basophils 1.9 % (0.0-1.0); %Eosinophils 0.4 % (0.0-10.0); %Lymphocytes 15.8 % (21.0-51.0); %Monocytes 9.3 % (0.0-10.0); %Neutrophils 72.6 % (42.0-75.0); Hemoglobin 10.5 g/dL (14.0-18.0); Mean Corpuscular Hemoglobin 30.1 pg (27.0-31.0); Mean Corpuscular Volume 93.9 fl (78.0-98.0); Platelet Count 178 10x3/uL (130-400); RBC Distribution Width 14.1 % (11.5-14.5); Red Blood Cell (RBC) Count 3.49 mill/uL (4.70-6.10); White Blood Cell (WBC) Count 6.4 10x3/uL (4.8-10.8)
[2022-11-28 17:06] LABS: INR-International Normal Ratio 1.2; Prothrombin Time 15.3 sec (12.0-14.7)
[2022-11-28 17:16] LABS: ALT (SGPT) 27 U/L (8-55); AST (SGOT) 41 U/L (5-34); Albumin 3.6 g/dL (3.4-4.8); Alkaline Phosphatase 62 U/L (40-110); Anion Gap 16 mmol/L (10-20); BUN (Urea Nitrogen) 12 mg/dL (8.4-25.7); Bilirubin, Total 1.6 mg/dL (0.2-1.2); Calc. Creatinine Clearance 0 mL/min (70-130); Calcium 8.4 mg/dL (7.8-10.44); Carbon Dioxide 23 mmol/L (23-31); Chloride 100 mmol/L (98-107); Estimated GFR 72; Globulin 3.6 g/dL (2.4-3.5); Glucose 86 mg/dL (80-115); Potassium 3.2 mmol/L (3.5-5.1); Protein, Total 7.2 g/dL (5.8-8.1); Sodium 136 mmol/L (136-145)
[2022-11-28] MEDS ORDERED: Acetaminophen 325 MG TAB PO PRN (18:49)
[2022-11-28] MEDS ORDERED: HumaLOG 300 UNITS/3 ML VIAL SC PRN ×2 (18:49)
[2022-11-28] MEDS ORDERED: Ondansetron PF 4 MG/2 ML Vial IVP PRN (18:49)
[2022-11-28] MEDS ORDERED: Ondansetron ODT 4 MG TAB PO PRN (18:49)
[2022-11-28] MEDS ORDERED: Dextrose 50% Abboject 50 ML SYRINGE SLOW IVP PRN (18:49)
[2022-11-28] MEDS ORDERED: Acetaminophen 650 MG Suppository PR PRN (18:49)
[2022-11-28] MEDS ORDERED: Dextrose 5% in Water 1,000 ML IV PRN (18:49)
[2022-11-28] MEDS ORDERED: Electrolyte Replacement Protocol 1 EACH FS PRN (19:30)
[2022-11-28 20:00] VITALS: BMI 31.8
[2022-11-28 20:22] LABS: Lactic Acid 1.7 mmol/L (0.5-2.2)
[2022-11-28] MEDS: Sodium Chloride 0.9% 1,000 ML IV SCH (20:26)
[2022-11-28] MEDS ORDERED: Potassium Chloride 20 MEQ TAB PO SCH (22:30)
[2022-11-29 04:54] LABS: #Lymphocytes 1.5 thou/uL (1.20-3.40); #Monocytes 0.7 thou/uL (0.11-0.59); #Neutrophils 3.6 thou/uL (1.40-6.50); %Basophils 0.4 % (0.0-1.0); %Eosinophils 0.6 % (0.0-10.0); %Monocytes 11.9 % (0.0-10.0); %Neutrophils 62.1 % (42.0-75.0); Hemoglobin 9.4 g/dL (14.0-18.0); Mean Corpuscular HGB CONC 31.7 g/dL (32.0-36.0); Mean Corpuscular Hemoglobin 29.6 pg (27.0-31.0); Mean Corpuscular Volume 93.3 fl (78.0-98.0); Mean Platelet Volume 7.9 fL (7.4-10.4); Platelet Count 166 10x3/uL (130-400); RBC Distribution Width 14.2 % (11.5-14.5); Red Blood Cell (RBC) Count 3.19 mill/uL (4.70-6.10); White Blood Cell (WBC) Count 5.8 10x3/uL (4.8-10.8)
[2022-11-29 05:19] LABS: Anion Gap 14 mmol/L (10-20); BUN (Urea Nitrogen) 11 mg/dL (8.4-25.7); Calc. Creatinine Clearance 113 mL/min (70-130); Calcium 8.1 mg/dL (7.8-10.44); Carbon Dioxide 21 mmol/L (23-31); Chloride 106 mmol/L (98-107); Estimated GFR 91; Glucose 82 mg/dL (80-115); Potassium 3.6 mmol/L (3.5-5.1); Sodium 137 mmol/L (136-145)
[2022-11-29] MEDS: Sodium Chloride 0.9% 1,000 ML IV SCH ×2 (05:40→08:53)
[2022-11-29] MEDS ORDERED: GoLYTELY 4,000 ml Bottle PO SCH (12:30)
[2022-11-29] MEDS: Sacubitril 49 MG/Valsartan 51 MG TABLET PO SCH (20:43)
[2022-11-29] MEDS: Tamsulosin HCl 0.4 MG CAP PO SCH (20:43)
[2022-11-29] MEDS: Atorvastatin Calcium 40 MG TAB PO SCH (20:43)
[2022-11-29] MEDS: Metoprolol Tartrate 25 MG TAB PO SCH (20:44)
[2022-11-29] MEDS: Potassium Chloride 20 MEQ TAB PO SCH (20:44)
[2022-11-29] MEDS: Pantoprazole 40 MG VIAL IVP SCH (20:44)
[2022-11-30] MEDS: Sodium Chloride 0.9% 1,000 ML IV SCH ×3 (00:20→23:41)
[2022-11-30 04:00] LABS: Bacteria/HPF None Seen HPF (None Seen); Bilirubin Negative (Negative); Blood, Urine Trace (Negative); Clarity Clear (Clear); Glucose, Urine (Dipstick) Greater than 1000 mg/dL (Negative); Ketone, Urine Negative (Negative); Leukocyte 25 Leu/uL (Negative); Nitrite Negative (Negative); Protein, Urine (Dipstick) 50 mg/dL (Neg-Trace); Specific Gravity, Urine 1.016 (1.002-1.036); Squamous Epithelial None Seen HPF (0-3); Urobilinogen Normal mg/dL (Less than 2)
[2022-11-30 05:19] LABS: #Eosinphils 0.1 thou/uL (0.0-0.7); #Lymphocytes 1.3 thou/uL (1.20-3.40); #Monocytes 0.7 thou/uL (0.11-0.59); #Neutrophils 3.4 thou/uL (1.40-6.50); %Basophils 0.5 % (0.0-1.0); %Eosinophils 1.3 % (0.0-10.0); %Lymphocytes 23.3 % (21.0-51.0); %Monocytes 12.5 % (0.0-10.0); %Neutrophils 62.4 % (42.0-75.0); Hemoglobin 8.9 g/dL (14.0-18.0); Mean Corpuscular HGB CONC 31.2 g/dL (32.0-36.0); Mean Corpuscular Hemoglobin 29.1 pg (27.0-31.0); Mean Corpuscular Volume 93.5 fl (78.0-98.0); Mean Platelet Volume 7.4 fL (7.4-10.4); Platelet Count 204 10x3/uL (130-400); Red Blood Cell (RBC) Count 3.04 mill/uL (4.70-6.10); White Blood Cell (WBC) Count 5.5 10x3/uL (4.8-10.8)
[2022-11-30 05:41] LABS: Anion Gap 10 mmol/L (10-20); BUN (Urea Nitrogen) 6 mg/dL (8.4-25.7); Calc. Creatinine Clearance 129 mL/min (70-130); Calcium 8.1 mg/dL (7.8-10.44); Carbon Dioxide 25 mmol/L (23-31); Chloride 108 mmol/L (98-107); Estimated GFR 98; Glucose 82 mg/dL (80-115); Sodium 139 mmol/L (136-145)
[2022-11-30] MEDS: Potassium Chloride 20 MEQ TAB PO SCH ×2 (08:27→19:50)
[2022-11-30] MEDS: Metoprolol Tartrate 25 MG TAB PO SCH ×2 (08:27→19:51)
[2022-11-30] MEDS: Bumetanide 1 MG TAB PO SCH ×2 (08:27→12:16)
[2022-11-30] MEDS: Sacubitril 49 MG/Valsartan 51 MG TABLET PO SCH ×2 (08:27→19:51)
[2022-11-30] MEDS: Empagliflozin 10 MG TAB PO SCH (08:27)
[2022-11-30] MEDS: Spironolactone 25 MG TAB PO SCH (08:28)
[2022-11-30] MEDS: Tamsulosin HCl 0.4 MG CAP PO SCH ×2 (08:28→19:51)
[2022-11-30] MEDS ORDERED: Ondansetron HCl/PF 4 MG/2 ML Vial IVP PRN (11:48)
[2022-11-30] MEDS ORDERED: Promethazine HCl 25 MG/ML VIAL IM PRN (11:48)
[2022-11-30] MEDS: Atorvastatin Calcium 40 MG TAB PO SCH (19:51)
[2022-11-30] MEDS: Pantoprazole 40 MG VIAL IVP SCH (19:51)
[2022-12-01] MEDS: Sodium Chloride 0.9% 1,000 ML IV SCH (07:56)
[2022-12-01] MEDS: Metoprolol Tartrate 25 MG TAB PO SCH (07:57)
[2022-12-01] MEDS: Bumetanide 1 MG TAB PO SCH ×2 (07:57→11:56)
[2022-12-01] MEDS: Sacubitril 49 MG/Valsartan 51 MG TABLET PO SCH (07:57)
[2022-12-01] MEDS: Spironolactone 25 MG TAB PO SCH (07:57)
[2022-12-01] MEDS: Potassium Chloride 20 MEQ TAB PO SCH (07:58)
[2022-12-01] MEDS: Tamsulosin HCl 0.4 MG CAP PO SCH (07:58)
[2022-12-01] MEDS: Empagliflozin 10 MG TAB PO SCH (07:59)
[2022-12-01] MEDS ORDERED: Loperamide HCl 2 MG CAP PO PRN (11:47)
[2022-12-01 12:05] VITALS: BP 94/53; TEMP 99
== END 2022-12-01 14:03 | disposition home or self-care (01) | DRG 378 ==
LOC: ERS 15:41 → 2SW 18:16 → OBSVTOIN 11-30 15:48
PROVIDERS: ADMIT Internal Medicine; ATTEND Internal Medicine
PROC: 0DJD8ZZ Inspection of Lower Intestinal Tract, Via Natural or Artificial Opening Endoscopic (ICD-10-PCS; principal; 2022-11-30)
DX: K62.5 Hemorrhage of anus and rectum (principal); D62 Acute posthemorrhagic anemia; E87.20 Acidosis, unspecified; Z20.822 Contact with and (suspected) exposure to COVID-19; N41.9 Inflammatory disease of prostate, unspecified; Z21 Asymptomatic human immunodeficiency virus [HIV] infection status; I48.91 Unspecified atrial fibrillation; E66.9 Obesity, unspecified; R31.0 Gross hematuria; N18.9 Chronic kidney disease, unspecified; E11.22 Type 2 diabetes mellitus with diabetic chronic kidney disease; I12.9 Hypertensive chronic kidney disease with stage 1 through stage 4 chronic kidney disease, or unspecified chronic kidney disease; D63.1 Anemia in chronic kidney disease; N40.1 Benign prostatic hyperplasia with lower urinary tract symptoms; R33.8 Other retention of urine; E87.6 Hypokalemia; Z68.31 Body mass index [BMI] 31.0-31.9, adult; Z85.46 Personal history of malignant neoplasm of prostate; Z92.3 Personal history of irradiation; Z88.8 Allergy status to other drugs, medicaments and biological substances; Z79.82 Long term (current) use of aspirin; Z79.899 Other long term (current) drug therapy; Z86.711 Personal history of pulmonary embolism; Z87.891 Personal history of nicotine dependence
CPT/HCPCS: 36415; 36416; 71045; 80048; 80053; 81001; 83605; 83880; 85025; 85610; 87086; 93005; 96360; 96361; 96374; C9113; G0378; J7050; U0003; U0005